=== PATIENT | female | born 1950 | race Caucasian/White ===

== ENCOUNTER 2016-02-19 22:57 | Inpatient (IN) | payer MEDICARE, BC ==
[2016-02-19] MEDS: IPRATROPIUM/ALBUTEROL (0.5MG/3MG) NEB INH ONE (23:23)
--- NOTE | 2016-02-19 23:23 | Emergency Department Record ---
History of Present Illness - General Chief Complaint: Shortness of breath Stated Complaint: LISE Time Seen by Provider: 02/19/16 23:14 Source: Patient, Family Mode of Arrival: Ambulatory - History of Present Illness Initial Comments: The patient was admitted to [facility] last week to have her heart worked up for symptoms of CP, LISE, and neck pain on the side. She states she was given a stress test, and ECHO by cardiology and all her heart tests came back normal. She was not given antibiotics or steroids during that time. Since then she has had continued LISE which she thought she could tolerate until her recheck in her PCP office this Saturday02-20-15. Tonight she became much more SOB while sitting on the couch, so she came in. She is a COPDer who just quit smoking this past fall. She denies CP, neck pain, f,c,n,v,d, calf tenderness. She has never had CVA, DVT, PE, ID. MD Complaint: Shortness of breath Onset/Timin -: Week(s) Severity scale (1-10): 3 Quality: Aching Consistency: Intermittent Improves With: Nothing Worsens With: Coughing Known History Of: COPD Associated Symptoms: Cough Treatments Prior to Arrival: Bronchodilator - Related Data Home Oxygen Therapy: No Home Medications Medication Instructions Recorded Confirmed Last Taken Amlodipine Besylate [Norvasc] 5 mg PO DAILY 11/24/15 02/19/16 02/19/16 Aspirin [Aspirin EC] 81 mg PO DAILY 11/24/15 02/19/16 02/19/16 Previous Rx's Medication Instructions Recorded Albuterol Sulfate [Ventolin Hfa] 1 - 2 puff IH .EVERY 4-6 HOURS PRN 11/25/15 #1 inhaler Allergies Allergy/AdvReac Type Severity Reaction Status Date / Time No Known Drug Allergies Allergy Verified 02/10/16 18:14 Travel Screening - Travel/Exposure Within Last 30 Days Have you traveled within the last 30 days?: No - Travel Symptoms Symptom Screening: None Review of Systems Reviewed: No additional complaints except as noted below Constitutional: Reports: As per HPI. Denies: Chills, Fever, Malaise, Night sweats, Weakness, Weight change Eyes: Reports: As per HPI. Denies: Eye discharge, Eye pain, Photophobia, Vision change ENT: Reports: As per HPI. Denies: Congestion, Dental pain, Ear pain, Epistaxis , Hearing loss, Throat pain Respiratory: Reports: As per HPI. Denies: Cough, Dyspnea, Hemoptysis, Stridor, Wheezes Cardiovascular: Reports: As per HPI. Denies: Arrhythmia, Chest pain, Dyspnea on exertion, Edema, Murmurs, Orthopnea, Palpitations, Paroxysmal nocturnal dyspnea, Rheumatic Fever, Syncope Endocrine: Reports: As per HPI. Denies: Fatigue, Heat or cold intolerance, Polydipsia, Polyuria Gastrointestinal: Reports: As per HPI. Denies: Abdominal pain, Constipation, Diarrhea, Hematemesis, Hematochezia, Melena, Nausea, Vomiting Genitourinary: Reports: As per HPI. Denies: Abnormal menses, Discharge, Dyspareunia, Dysuria, Frequency, Hematuria, Incontinence, Retention, Urgency Musculoskeletal: Reports: As per HPI. Denies: Arthralgia, Back pain, Gout, Joint swelling, Myalgia, Neck pain Skin: Reports: As per HPI. Denies: Bruising, Change in color, Change in hair/ nails, Lesions, Pruritus, Rash Neurological: Reports: As per HPI. Denies: Abnormal gait, Confusion, Headache, Numbness, Paresthesias, Seizure, Tingling, Tremors, Vertigo, Weakness Psychiatric: Reports: As per HPI. Denies: Anxiety, Auditory hallucinations, Depression, Homicidal thoughts, Suicidal thoughts, Visual hallucinations Hematological/Lymphatic: Reports: As per HPI. Denies: Anemia, Blood Clots, Easy bleeding, Easy bruising, Swollen glands Past Medical History - SOCIAL HISTORY Smoking Status: Former smoker - RESPIRATORY Hx Respiratory Disorders: Yes Hx COPD: Yes - CARDIOVASCULAR Hx Cardio Disorders: Yes Hx Hypertension: Yes - NEURO Hx Neuro Disorders: No - GI Hx GI Disorders: No - Hx Genitourinary Disorders: No - ENDOCRINE Hx Endocrine Disorders: No - MUSCULOSKELETAL Hx Musculoskeletal Disorders: No - PSYCH Hx Psych Problems: No - HEMATOLOGY/ONCOLOGY Hx Hematology/Oncology Disorders: No Family Medical History Any Significant Family History?: Yes Hx Cancer: Father, Mother Hx Resp Disorders: Father, Grandparents Physical Exam - General General Appearance: Alert, Oriented x3, Cooperative, Severe distress (breathless , tripod position due to LISE, prolonged expiratory phase, ra biox [id number]) - Head Head exam: Normal inspection - Eye Eye exam: Normal appearance, PERRL Pupils: Normal accommodation - ENT ENT exam: Normal exam, Mucous membranes moist, Normal external ear exam, Normal orophraynx, TM's normal bilaterally Ear exam: Normal external inspection. negative: External canal tenderness Nasal Exam: Normal inspection. negative: Discharge, Sinus tenderness Mouth exam: Normal external inspection, Tongue normal Teeth exam: Normal inspection. negative: Dental caries Throat exam: Normal inspection. negative: Tonsillar erythema, Tonsillar exudate - Neck Neck exam: Normal inspection, Full ROM. negative: Lymphadenopathy, Tenderness - Respiratory Respiratory exam: Accessory muscle use, Decreased breath sounds, Prolonged expiratory, Respiratory distress, Wheezes, Other (RA biox [id number]). negative: Chest wall tenderness - Cardiovascular Cardiovascular Exam: Regular rate, Normal rhythm, Normal heart sounds - GI/Abdominal GI/Abdominal exam: Soft, Normal bowel sounds. negative: Tenderness - Rectal Rectal exam: Deferred - exam: Deferred - Extremities Extremities exam: Normal inspection, Full ROM, Normal capillary refill. negative: Calf tenderness, Pedal edema, Tenderness - Back Back exam: Reports: Normal inspection, Full ROM. Denies: Muscle spasm, Rash noted, Tenderness - Neurological Neurological exam: Alert, Normal gait, Oriented X3, Reflexes normal - Psychiatric Psychiatric exam: Normal affect, Normal mood - Skin Skin exam: Dry, Intact, Normal color, Warm Course Vital Signs 02/19/16 02/19/16 23:03 23:07 Temperature 98.3 F 98.3 F Pulse Rate 90 Pulse Rate [ 96 H Pulse Ox Probe] Respiratory 28 H 18 Rate Blood Pressure 141/93 Blood Pressure 141/93 [Left Arm] Pulse Ox 93 L 93 L - Reevaluation(s) Reevaluation #1: Patient is breathing more comfortably but is not back to her baseline. Lungs are distant and wheezes have dissipated, but she is purse lipped in her breathing. She agrees to admission. She sees Dr. Sen as her PCP. 02/20/16 02:32 02/20/16 02:37 Medical Decision Making - Management Options MDM Management: Additional Work-up Planned (e.g. ADM/Transfer/OP Study) ( Admission for COPD exacerbation; pneumonia LLL) - Data Complexity MDM Data: Labs Ordered and/or Reviewed, X-Ray Ordered and/or Reviewed (CTA chest : Mild atelectasis left lower lobe, Hyperinflation of lung with centrilobular emphysema diffusely and bilaterally. NO PE.), EKG Ordered and/or Reviewed - Lab Data Result diagrams: 02/19/16 23:18 02/19/16 23:18 - EKG Data -: EKG Interpreted by Me EKG: No Acute Changes (low voltage NSR, unchanged from previous of 02-10-16) Disposition Disposition: Admit Clinical Impression: COPD with acute exacerbation Pneumonia Qualifiers: Pneumonia type: due to unspecified organism Laterality: left Lung location: lower lobe of lung Qualified Code(s): J18.1 - Lobar pneumonia, unspecified organism Disposition: Still a Patient at [facility] Decision to Admit: Admit from ER Decision to Admit Date: 02/20/16 Decision to Admit Time: 02:35 Accepting Physician: Dr. Sen's patient Condition: (2) Stable
[2016-02-19] MEDS ORDERED: METHYLPREDNISOLONE PF 125MG/VIAL IVP ONE (23:28)
[2016-02-19] MEDS: ALBUTEROL SULFATE (0.083%) 2.5 MG/3 ML NEB INH ONE (23:36)
[2016-02-19 23:38] LABS: BASO % 0.5 % (0-6); EOS % 8.4 % (0-6); GRAN % 45.4 % (47-80); HEMATOCRIT 41.6 % (35.0-47.0); HEMOGLOBIN 14.3 gm/dl (11.6-16.0); LYMPH % 36.4 % (16-45); MEAN CELL VOLUME 86.7 fl (81-97); MEAN CORPUSCULAR HEMOGLOBIN 29.8 pg (27-33); MEAN CORPUSCULAR HGB CONC 34.4 g/dl (32-36); MEAN PLATELET VOLUME 8.6 fl (7.4-10.4); MONO % 9.3 % (0-9); PLATELET COUNT 277 K/uL (130-400); RED CELL DISTRIBUTION WIDTH 14.4 % (11.5-14.5); WHITE BLOOD COUNT W/O DIFF 7.8 K/uL (4.2-12.2)
[2016-02-19] MEDS ORDERED: ALBUTEROL SULFATE (0.083%) 2.5 MG/3 ML NEB INH ONE (23:49)
[2016-02-19 23:56] LABS: ANION GAP 9.2 (7-16); BLOOD UREA NITROGEN 14 mg/dL (7-17); CARBON DIOXIDE 25.8 mmol/L (22-30); CREATININE 0.8 mg/dL (0.52-1.04); EST GLOMERULAR FILTRATION RATE > 60 ml/min; GLUCOSE,RANDOM 95 mg/dL (70-110)
[2016-02-20 00:07] LABS: TROPONIN I < 0.012 ng/mL (0.00-0.034)
[2016-02-20] MEDS: IPRATROPIUM/ALBUTEROL (0.5MG/3MG) NEB INH ONE (01:16)
[2016-02-20] MEDS ORDERED: ALBUTEROL SULFATE (0.083%) 2.5 MG/3 ML NEB INH ONE (02:30)
[2016-02-20] MEDS ORDERED: AZITHROMYCIN 500 MG TABLET PO ONE (02:31)
[2016-02-20] MEDS ORDERED: CEFTRIAXONE SODIUM 2 GM in 0.9 % SODIUM CHLORIDE 100ML 100 ML IVPB ONE (02:31)
[2016-02-20] MEDS: ALBUTEROL SULFATE (0.083%) 2.5 MG/3 ML NEB INH ONE (02:36)
[2016-02-20] MEDS ORDERED: CEFTRIAXONE SODIUM 2 GM in 0.9 % SODIUM CHLORIDE 100ML 100 ML IVPB SCH (04:21)
[2016-02-20] MEDS: 0.9 % SODIUM CHLORIDE 1000ML 1,000 ML IV PRN ×2 (04:33→12:46)
[2016-02-20] MEDS: ACETAMINOPHEN 500 MG TABLET PO PRN ×2 (04:34→18:50)
[2016-02-20] MEDS ORDERED: ALBUTEROL SULFATE (0.083%) 2.5 MG/3 ML NEB INH SCH (06:00)
[2016-02-20] MEDS ORDERED: IPRATROPIUM/ALBUTEROL (0.5MG/3MG) NEB INH SCH (06:00)
[2016-02-20] MEDS ORDERED: ALBUTEROL SULFATE (0.083%) 2.5 MG/3 ML NEB INH PRN (07:54)
[2016-02-20] MEDS: AMLODIPINE BESYLATE 5MG TAB PO SCH (09:21)
[2016-02-20] MEDS: ASPIRIN 81 MG TABEC PO SCH (09:21)
[2016-02-20] MEDS: IPRATROPIUM/ALBUTEROL (0.5MG/3MG) NEB INH SCH ×4 (09:54→21:35)
[2016-02-20] MEDS ORDERED: METHYLPREDNISOLONE PF 125MG/VIAL IVP SCH (10:00)
[2016-02-20] MEDS ORDERED: 0.9 % SODIUM CHLORIDE 1000ML 1,000 ML IV ONE (12:49)
[2016-02-20] MEDS: 0.9 % SODIUM CHLORIDE 1000ML 1,000 ML IV ONE ×2 (13:13→19:30)
[2016-02-20] MEDS: ENOXAPARIN 40 MG/0.4 ML SYR SQ SCH (13:17)
[2016-02-20] MEDS: CEFTRIAXONE SODIUM 1 GM in 0.9 % SODIUM CHLORIDE 100ML 100 ML IVPB SCH (13:18)
--- NOTE | 2016-02-20 14:35 | History and Physical Report ---
CHIEF COMPLAINT: Dyspnea, cough, wheezing. HISTORY OF PRESENT ILLNESS: This 65-year-old female presented to the emergency department short of breath and wheezing. She came into the emergency department and was seen by Dr. Guillen. She was admitted to the hospital for pneumonia. She was recently worked up at [facility] approximately [id number]-half weeks ago for chest pain which was negative for a cardiac problem. She continued to get worse with her breathing on the left two or three days with shortness of breath and coughing. She stopped smoking in October of 2015. She has a long history of smoking and has chronic obstructive pulmonary disease. She required four breathing treatments, possibly five breathing treatments, in the emergency department to settle her down. She was admitted to the hospital for chronic obstructive pulmonary disease exacerbation and possible pneumonia. However, the chest CT was negative for any acute findings. She might have had some atelectasis in the lower lungs, but it was not significant. No signs of pulmonary embolism. Her D-dimer was slightly elevated. PAST MEDICAL HISTORY: Chronic obstructive pulmonary disease, hypertension. PAST SURGICAL HISTORY: Hysterectomy, cholecystectomy, appendectomy, tubal ligation. MEDICATIONS ON ADMISSION: Aspirin 81 mg q. daily, amlodipine 5.0 mg q. daily, albuterol or Ventolin inhaler two puffs every four hours p.r.n. ALLERGIES: No known drug allergies. FAMILY/PSYCHOSOCIAL HISTORY: Her smoking history was heavy. She smoked one pack per day for 40 years. She quit smoking in October of 2015. No alcohol or drug use. Her father and mother had cancer. Her father had chronic obstructive pulmonary disease. Her grandparents had chronic obstructive pulmonary disease. REVIEW OF SYSTEMS: HEENT: She has a hoarse voice and slight congestion. No ear pain, eye discomfort, headache, or dizziness. Cardiovascular: She had a chest pain work up approximately one week ago at [facility]. She said what she felt then was a funny feeling in her chest. She did not really have chest pain but was worked up for atypical chest pain and it was a negative work up per the patient and Dr. Guillen. Respiratory: She was short of breath and wheezing for which she required five breathing treatments in the emergency department. She has a long smoking history and a history of chronic obstructive pulmonary disease. She is short of breath with exertion. Gastrointestinal: No nausea, vomiting, diarrhea, black stools, or bloody stools. Genitourinary: No dysuria, hematuria, frequency, or burning on urination. Musculoskeletal: She does have arthritis in her joints but is ambulating without difficulty. Neurologic: No cerebrovascular accident, paralysis, or paraesthesias. Gynecologic: No lumps in her breasts or abnormal vaginal bleeding. Endocrine: No diabetes or thyroid disease. Integument: No rash, ulcers, changing moles, or yellow skin. PHYSICAL EXAMINATION: General: Height is 5 feet, 4 inches. Weight is 161 pounds. Vital Signs: Pulse is 100, blood pressure is 132/87 at 4:00 in the morning, respiratory rate is 20, pulse oximetry is 96% on two liters. HEENT: Pupils are equal, round, and reactive to light and accommodation. Extraocular muscles are intact. The throat is clear. The nose is clear. The tympanic membranes are venegas. She has a hoarse voice. Neck: The neck is supple. No jugular venous distension. No hepatojugular reflex. No carotid bruit. The thyroid is smooth. Cardiovascular: Regular rate and rhythm without murmurs, clicks, rubs, or gallops. Respiratory: She has wheezing bilaterally and coughing with a spasmodic cough. Abdomen: Soft and nontender. No hepatosplenomegaly. No masses. No tenderness. Bowel sounds are active. No bruit. Extremities: No pitting edema. No cyanosis. No clubbing. Full range of motion. Peripheral pulses are good. Breasts, Gynecological, and Rectal Examinations: Deferred. Neurological Examination: Cranial nerves II through XII are intact. No gross defect. Sensation is normal. Strength is normal. Deep tendon reflexes are equal bilaterally. Babinski is negative. Mental Status: Alert and oriented times three. IMPRESSIONS: 1. Acute bronchitis. 2. Acute exacerbation of chronic obstructive pulmonary disease. 3. Status post hypertension. PLAN: Lovenox 40 mg subcutaneous. Continue intravenous antibiotics. Will change Rocephin 1.0 gm every 12 hours to Solu Medrol 60 mg q. eight hours. Decrease the intravenous fluids to 50 mL per hour. Rodney A Francy, D.O. Date Time JOB NUMBER: [id number] MTDD
[2016-02-20] MEDS: METHYLPREDNISOLONE PF 125MG/VIAL IVP SCH ×2 (16:16→21:28)
[2016-02-21] MEDS: CEFTRIAXONE SODIUM 1 GM in 0.9 % SODIUM CHLORIDE 100ML 100 ML IVPB SCH (00:11)
[2016-02-21] MEDS: ACETAMINOPHEN 500 MG TABLET PO PRN (00:16)
[2016-02-21] MEDS: METHYLPREDNISOLONE PF 125MG/VIAL IVP SCH (05:13)
[2016-02-21] MEDS: IPRATROPIUM/ALBUTEROL (0.5MG/3MG) NEB INH SCH ×6 (05:39→21:33)
[2016-02-21] MEDS ORDERED: CEFTRIAXONE SODIUM 2 GM in 0.9 % SODIUM CHLORIDE 100ML 100 ML IVPB SCH (08:00)
--- NOTE | 2016-02-21 08:43 | CT ANGIOGRAM REPORT ---
EXAM: CT ANGIOGRAPHY OF THE THORAX HISTORY: SHORTNESS OF BREATH, DRY COUGH, ELEVATED D-DIMER. TECHNIQUE: CT angiography of the thorax was performed. 85 ml of Omnipaque 350 contrast were used for this examination. Coronal and sagittal post processed MIP images were performed on an independent workstation as part of this examination. Comparison; Chest x-ray 02/10/16. FINDINGS: There are no pulmonary emboli identified. No aortic aneurysm or aortic dissection. There are mild atherosclerotic changes in the thoracic aorta. There is no pleural or pericardial effusion. No mediastinal mass or adenopathy. Minor atelectasis or infiltrate is seen in the lower left lung. There are mild to moderate emphysematous changes bilaterally. No lung mass or lung nodule identified. No large area of lung consolidation. Limited upper abdominal images demonstrate bilateral adrenal enlargement possibly due to hyperplasia or adenoma. The upper abdomen is otherwise unremarkable. IMPRESSION: 1. NO PULMONARY EMBOLI. NO AORTIC ANEURYSM, AORTIC DISSECTION, OR ACUTE VASCULAR PROCESS. 2. SMALL AREA OF ATELECTASIS OR INFILTRATE AT THE LEFT LUNG BASE OF UNCERTAIN SIGNIFICANCE. 3. EMPHYSEMATOUS CHANGES. 4. SEE ABOVE FOR FULL DISCUSSION. 5. MILD BILATERAL ADRENAL ENLARGEMENT POSSIBLY DUE TO HYPERPLASIA OR BILATERAL ADENOMAS. JOB NUMBER: [id number] [facility]
[2016-02-21] MEDS: ASPIRIN 81 MG TABEC PO SCH (09:52)
[2016-02-21] MEDS: AMLODIPINE BESYLATE 5MG TAB PO SCH (09:52)
[2016-02-21] MEDS: AZITHROMYCIN 500 MG TABLET PO SCH (09:52)
[2016-02-21] MEDS: ENOXAPARIN 40 MG/0.4 ML SYR SQ SCH (09:52)
[2016-02-21] MEDS: PREDNISONE 20 MG TAB PO SCH (18:03)
[2016-02-22] MEDS: IPRATROPIUM/ALBUTEROL (0.5MG/3MG) NEB INH SCH ×2 (05:09→05:46)
--- NOTE | 2016-02-22 07:49 | Discharge Note ---
Discharge Note - Date Date of Discharge Note: 02/22/16 Disposition: Home, Self-Care Condition: (2) Stable Additional Instructions: follow up with Dr. Sen on saturday Prescriptions: Prednisone [Prednisone 10Mg] 10 mg PO ASDIR #30 tab Azithromycin [Zithromax] 500 mg PO DAILY #7 tab Forms: Patient Portal Access
--- NOTE | 2016-02-22 08:03 | Discharge Note ---
Discharge Note - Date Date of Discharge Note: 02/22/16 Disposition: Home, Self-Care Condition: (2) Stable Additional Instructions: follow up with Dr. Sen on saturday Prescriptions: Prednisone [Prednisone 10Mg] 10 mg PO ASDIR #30 tab Beclomethasone Dipropionate [Qvar] 1 inh IH BID #1 aer.w.adap Azithromycin [Zithromax] 500 mg PO DAILY #7 tab Referrals: Rodney Sen D.O. [Primary Care Provider] - Forms: Patient Portal Access
[2016-02-22] MEDS ORDERED: PREDNISONE 20 MG TAB PO ONE (08:08)
[2016-02-22] MEDS: PREDNISONE 20 MG TAB PO SCH (08:14)
[2016-02-22] MEDS: ASPIRIN 81 MG TABEC PO SCH (09:06)
[2016-02-22] MEDS: AMLODIPINE BESYLATE 5MG TAB PO SCH (09:06)
[2016-02-22] MEDS: AZITHROMYCIN 500 MG TABLET PO SCH (09:06)
[2016-02-22] MEDS: ENOXAPARIN 40 MG/0.4 ML SYR SQ SCH (09:06)
--- NOTE | 2016-02-22 16:29 | Discharge Summary ---
DATE OF DISCHARGE: 02/22/2016. DISCHARGE DIAGNOSES: 1. Acute bronchitis. 2. Exacerbation of chronic obstructive pulmonary disease. 3. Status post hypertension. 4. Bilateral enlarged adrenal glands seen on CT scan of the chest, mildly enlarged. 5. Possible pneumonia. ATTENDING PHYSICIAN: Rodney Sen D.O. REASON FOR HOSPITALIZATION: Dyspnea, cough, and wheezing. HISTORY OF THE PRESENT ILLNESS: This 65-year-old female presented to the emergency department short of breath and wheezing. She came to the emergency department and was seen by Dr. Guillen. She was admitted to the hospital for pneumonia. She was recently worked up at [facility] for a cardiac work up about mmn-qcq-[id number]-half weeks ago. This was negative for cardiac problems. She progressively got worse with her breathing. Her coughing got worse. She came in and was admitted to the hospital by Dr. Guillen for possible pneumonia. However, the CT scan did not show any signs of pneumonia or pulmonary embolus. She had a slightly elevated D-dimer. A CT angiogram was ordered which was negative for pulmonary embolus. She stopped smoking in October of 2015. She has a long history of smoking. SIGNIFICANT FINDINGS: LABORATORY DATA: White blood cell count was 7,800, hemoglobin was 14.3. Lymphs were 36, segs were 45, monos were 9.0, eosinophils were 8.0. Potassium was 3.8. BUN was 14 and creatinine was 0.8. D-dimer was slightly elevated at 0.61. DIAGNOSTIC DATA: CT angiogram showed no pulmonary embolism, aortic aneurysm, aortic dissection, or acute vascular process. Small area of atelectasis or infiltrate in the left lung base of uncertain significance. Emphysematous changes. See above for the full discussion. Mild bilateral adrenal enlargement possibly due to hyperplasia or bilateral adenomas. THERAPY PROVIDED: The patient was started on intravenous Rocephin 1.0 gm q. 12 hours, azithromycin 500 mg once a day, DuoNeb treatments q. four hours while awake. Solu Medrol 125 mg was given in the emergency department with 60 mg q. eight hours. She was switched over to oral prednisone. She is breathing much better on the day of discharge. She is ambulating around the room without difficulties. HOSPITAL COURSE: The patient gradually got better. CONDITION AT DISCHARGE: Much improved. DISCHARGE INSTRUCTIONS: Follow up with Dr. Sen on February 26Saturday, in the office. Azithromycin 500 mg q. daily for seven days. Prednisone will be tapered off at 40 mg a day. QVAR one puff b.i.d. Albuterol inhaler two puffs q.i.d. Aspirin 81 mg q. daily, amlodipine 5.0 mg q. daily. Rodney Sen D.O. Date Time JOB NUMBER: [id number] MTDD
== END 2016-02-22 09:40 | disposition home or self-care (01) | DRG 190 ==
LOC: ER 22:57 → MEDSURG 02-20 04:20
PROVIDERS: ADMIT Emergency Medicine; ATTEND Emergency Medicine
DX: J44.0 Chronic obstructive pulmonary disease with (acute) lower respiratory infection (principal); J18.9 Pneumonia, unspecified organism; J20.9 Acute bronchitis, unspecified; I10 Essential (primary) hypertension; Z79.82 Long term (current) use of aspirin; Z87.891 Personal history of nicotine dependence; R59.0 Localized enlarged lymph nodes
CPT/HCPCS: 71275; 80048; 84484; 85025; 85379; 93005; 93010; 94620; 94640; 94760; 94761; 96374; 99285; J1650; J2930; J7512; J7613

== ENCOUNTER 2016-03-06 19:30 | Observation (INO) | payer MEDICARE, BC ==
[2016-03-06] MEDS ORDERED: IPRATROPIUM/ALBUTEROL (0.5MG/3MG) NEB INH ONE (19:33)
[2016-03-06] MEDS ORDERED: METHYLPREDNISOLONE PF 125MG/VIAL IVP ONE (19:33)
--- NOTE | 2016-03-06 19:41 | Emergency Department Record ---
History of Present Illness - General Chief Complaint: Shortness of breath Stated Complaint: LISE/DIZZY Time Seen by Provider: 03/06/16 19:32 Source: Patient Mode of Arrival: Ambulatory Limitations: No limitations - History of Present Illness Initial Comments: 65 yo female presents to ED for evaluation of progressively worsening shortness of breath symptoms. Patient reports recent hospitalization and treatment for "COPD and Bronchitis", finished her oral steroid yesterday. Patient reports that her symptoms have been worsening over the past several days. Patient denies fevers, chills, or productive cough symptoms. MD Complaint: Shortness of breath Onset/Timin -: Days(s) Severity: Severe Consistency: Constant Improves With: Nothing Worsens With: Exertion Known History Of: COPD Context: Recent illness, Recent URI Associated Symptoms: Denies other symptoms - Related Data Home Oxygen Therapy: No Home Medications Medication Instructions Recorded Confirmed Last Taken Amlodipine Besylate [Norvasc] 5 mg PO DAILY 11/24/15 03/06/16 02/19/16 Aspirin [Aspirin EC] 81 mg PO DAILY 11/24/15 03/06/16 02/19/16 Previous Rx's Medication Instructions Recorded Albuterol Sulfate [Ventolin Hfa] 1 - 2 puff IH .EVERY 4-6 HOURS PRN 11/25/15 #1 inhaler Acetaminophen [Tylenol 500Mg Tab] 500 mg PO Q6H PRN #0 tablet 02/22/16 Allergies Allergy/AdvReac Type Severity Reaction Status Date / Time No Known Drug Allergies Allergy Verified 02/10/16 18:14 Review of Systems Constitutional: Denies: Chills, Fever, Malaise, Night sweats Eyes: Denies: Eye discharge, Eye pain ENT: Denies: Congestion, Ear pain, Epistaxis Respiratory: Reports: Cough, Dyspnea. Denies: Hemoptysis, Stridor, Wheezes Cardiovascular: Denies: Chest pain, Dyspnea on exertion Endocrine: Denies: Fatigue, Heat or cold intolerance Gastrointestinal: Denies: Abdominal pain, Nausea, Vomiting Genitourinary: Denies: Dysuria, Frequency, Hematuria, Incontinence Musculoskeletal: Denies: Arthralgia, Back pain, Gout, Joint swelling Skin: Denies: Bruising, Change in color Neurological: Denies: Abnormal gait, Confusion, Headache, Seizure Psychiatric: Denies: Anxiety Hematological/Lymphatic: Denies: Anemia, Blood Clots Past Medical History - SOCIAL HISTORY Smoking Status: Former smoker Drug Use: None - RESPIRATORY Hx Respiratory Disorders: Yes Hx COPD: Yes - CARDIOVASCULAR Hx Cardio Disorders: Yes Hx Hypertension: Yes - NEURO Hx Neuro Disorders: No - GI Hx GI Disorders: No - Hx Genitourinary Disorders: No - ENDOCRINE Hx Endocrine Disorders: No - MUSCULOSKELETAL Hx Musculoskeletal Disorders: No - PSYCH Hx Psych Problems: No - HEMATOLOGY/ONCOLOGY Hx Hematology/Oncology Disorders: No Family Medical History Hx Cancer: Father, Mother *Cancer Comment: mother- lung ca, father-colon ca Hx Resp Disorders: Father, Grandparents Physical Exam - General General Appearance: Alert, Oriented x3, Cooperative, Moderate distress (pursed breathing on examination, sitting upright to catch her breath) Limitations: Physical limitation - Head Head exam: Atraumatic, Normocephalic, Normal inspection Head exam detail: negative: Abrasion, Contusion, Palumbo's sign, General tenderness, Hematoma, Laceration - Eye Eye exam: Normal appearance. negative: Conjunctival injection, Periorbital swelling, Periorbital tenderness, Scleral icterus - ENT Ear exam: negative: Auricular hematoma, Auricular trauma Nasal Exam: negative: Active bleeding, Discharge, Dried blood, Foreign body Mouth exam: negative: Drooling, Laceration, Muffled voice, Tongue elevation - Neck Neck exam: Normal inspection. negative: Meningismus, Tenderness - Respiratory Respiratory exam: Decreased breath sounds, Respiratory distress. negative: Rhonchi, Stridor, Wheezes - Cardiovascular Cardiovascular Exam: Regular rate, Normal rhythm, Normal heart sounds - GI/Abdominal GI/Abdominal exam: Soft. negative: Rebound, Rigid, Tenderness - Rectal Rectal exam: Deferred - exam: Deferred - Extremities Extremities exam: Normal inspection. negative: Calf tenderness, Pedal edema, Tenderness - Back Back exam: Denies: CVA tenderness (R), CVA tenderness (L) - Neurological Neurological exam: Alert, Normal gait, Oriented X3 - Psychiatric Psychiatric exam: Normal affect, Normal mood - Skin Skin exam: Normal color. negative: Abrasion Type of lesion: negative: abrasion Course - Reevaluation(s) Reevaluation #1: 03/06/16 19:41 CTA reviewed 02/20/16: No PE or dissection, findings c/w atelectasis or infiltrate left base. Reevaluation #2: 03/06/16 19:54 EKG: NSR 84 indeterminate axis Low voltage No acute ST-T wave changes. No chagne from previous 02/10/16. 03/06/16 19:55 Reevaluation #3: 03/06/16 20:33 Labs reviewed and are grossly unremarkable for an acute process. CXR reviewed, negative for an acute process except for COPD. Patient reassessed, remains moderately dyspnic on re-examination. Continuous albuterol and ABG ordered for further evaluation. Will place admission orders following clinical improvement and review of ABG. Reevaluation #4: 03/06/16 21:17 ABG reviewed, PCO2 42, PO2 60, HCO3 28.2. Will admit for further evaluation. Medical Decision Making - Lab Data Result diagrams: 03/06/16 19:44 03/06/16 19:44 Critical Care Time Critical Care Time: Yes Total Critical Care Time: 45 Critical Care Time: Treatment and diagnosis of COPD exacerbation including IV solumedrol, duoneb, continuous albuterol, and ABG interpretation for respiratory failure. Disposition Disposition: Admit Clinical Impression: COPD with acute exacerbation, Hypoxia Decision to Admit: Admit from ER Decision to Admit Date: 03/06/16 Decision to Admit Time: 21:18 Forms: Patient Portal Access Time of Disposition: :18
[2016-03-06 19:53] LABS: HEMATOCRIT 44.9 % (35.0-47.0); HEMOGLOBIN 14.9 gm/dl (11.6-16.0); MEAN CELL VOLUME 91.3 fl (81-97); MEAN CORPUSCULAR HEMOGLOBIN 30.3 pg (27-33); MEAN CORPUSCULAR HGB CONC 33.2 g/dl (32-36); MEAN PLATELET VOLUME 8.4 fl (7.4-10.4); PLATELET COUNT 283 K/uL (130-400); RED BLOOD COUNT 4.92 M/uL (3.80-5.40); RED CELL DISTRIBUTION WIDTH 15.1 % (11.5-14.5); WHITE BLOOD COUNT W/O DIFF 10.5 K/uL (4.2-12.2)
[2016-03-06 20:04] LABS: ALB/GLOB RATIO 1.7 (1.1-1.8); ALBUMIN 4.3 gm/dL (3.5-5.0); ALKALINE PHOSPHATASE 64 U/L (38-126); ALT/SGPT 31 U/L (9-52); AST/SGOT 20 U/L (14-36); BLOOD UREA NITROGEN 18 mg/dL (7-17); CREATININE 0.9 mg/dL (0.52-1.04); EST GLOMERULAR FILTRATION RATE > 60 ml/min; GLUCOSE,RANDOM 84 mg/dL (70-110); TOTAL PROTEIN 6.8 gm/dL (6.3-8.2)
[2016-03-06 20:16] LABS: CKMB 1.3 ug/L (0-6); TROPONIN I < 0.012 ng/mL (0.00-0.034)
[2016-03-06] MEDS ORDERED: ALBUTEROL SULFATE 0.5% 5 MG/ML BTL 20ML INH SCH (20:45)
[2016-03-06 21:07] LABS: ARTERIAL BLD GAS O2 SATURATION 92.8 % (95-98); ARTERIAL BLOOD GAS HCO3 28.2 mmol/L (18-23); ARTERIAL BLOOD GAS PCO2 42.1 mmHg (35-48); ARTERIAL BLOOD GAS pH 7.44 (7.35-7.45); CARBOXYHEMOGLOBIN 1.1 % (0-1.5); METHEMOGLOBIN 0.5 % (0.0-1.5); O2 HEMOGLOBIN 91.3 % vol (94-99); TOTAL HEMOGLOBIN 14.3 g/dl (11.6-16)
[2016-03-06 21:09] LABS: ALLEN TEST PASS
[2016-03-06] MEDS ORDERED: IPRATROPIUM/ALBUTEROL (0.5MG/3MG) NEB INH PRN (21:18)
[2016-03-06] MEDS ORDERED: ALBUTEROL SULFATE (0.083%) 2.5 MG/3 ML NEB INH PRN (21:18)
[2016-03-06] MEDS ORDERED: 0.9 % SODIUM CHLORIDE 1000ML 1,000 ML IV PRN (21:18)
--- NOTE | 2016-03-07 07:29 | RADIOLOGY REPORT ---
EXAM: CHEST, TWO VIEWS HISTORY: COUGH. TECHNIQUE: Frontal and lateral views of the chest were obtained. Comparison: 02/10/16 chest. FINDINGS: The heart size is normal. Osteopenia. Underlying hyperinflation/ COPD. The lungs are clear. No pneumothorax. IMPRESSION: COPD. THE LUNGS ARE CLEAR. JOB NUMBER: [id number] MTDD
[2016-03-07] MEDS ORDERED: AMOXICILLIN 500 MG TABLET PO ONE (08:52)
--- NOTE | 2016-03-07 08:57 | Discharge Note ---
Discharge Note - Date Date of Discharge Note: 03/07/16 Disposition: Home, Self-Care Condition: (1) Good Additional Instructions: follow up with Dr. Sen on saturday as scheduled increase q ceasar inhaler to 2 puffs BID start neb treatments of albuterol neb QID amoxil 500 mg TID fpr laryngitis Prescriptions: Albuterol Sulfate 0.083% [Neb] 2.5 mg INH QID PRN #120 nebulization solution PRN Reason: Difficulty In Breathing Amoxicillin [Amoxil] 500 mg PO TID #30 tab Forms: Patient Portal Access
[2016-03-07] MEDS ORDERED: METHYLPREDNISOLONE PF 125MG/VIAL IVP SCH (10:00)
--- NOTE | 2016-03-07 10:53 | History and Physical Report ---
STATUS: This is an observation patient. CHIEF COMPLAINT: Dyspnea. HISTORY OF PRESENT ILLNESS: This 65-year-old female states that she developed a hoarse voice approximately one or two days ago. She just finished her steroid taper following her last hospitalization two weeks ago. She took her last prednisone yesterday. She became short of breath about 6:00 p.m. She came into the emergency department requiring a nebulization treatment of albuterol for one hour. She was then feel much better. She was admitted to the hospital. She had a reasonable blood gas and did not qualify for oxygen therapy. She took her oxygen off during the night and has not used her oxygen at all during the night. She slept well, according to nursing. She still has a hoarse voice. She ate breakfast and is feeling much better. She is ambulating around the room without difficulties. DIAGNOSTIC DATA: She had a chest x-ray in the emergency department which was negative for infiltrate. It showed only chronic obstructive pulmonary disease. LABORATORY DATA: She had a blood gas done which revealed a pH of 7.44, P02 of 60, PC02 of 42 on room air. She had a complete blood count which showed a white count of 10,500. Hemoglobin was 14.9. Segs were 58. Bands were 0. Lymphs were 22. Electrolytes showed a potassium of 4.5, BUN of 18, and a creatinine 0.9. Calcium was 11.1. CKMB was negative at 1.3. Troponin was negative at less than 0.012. PAST MEDICAL HISTORY: Chronic obstructive pulmonary disease and hypertension. PAST SURGICAL HISTORY: Hysterectomy, cholecystectomy, appendectomy, tubal ligation. MEDICATIONS ON ADMISSION: Amlodipine 5.0 mg q. daily, albuterol inhaler two puffs q. four hours p.r.n., Tylenol p.r.n., aspirin 81 mg q. daily, QVAR 40 mcg one puff b.i.d. ALLERGIES: No known allergies. FAMILY/PSYCHOSOCIAL HISTORY: Her smoking history was heavy. She smoked one pack per day for four years; she quit smoking in October of 2015. No alcohol or drug use. Her father and mother had cancer. Her father had chronic obstructive disease. Her grandparents had chronic obstructive pulmonary disease. REVIEW OF SYSTEMS: HEENT: She has a slightly hoarse voice and some congestion. No sore throat. No discomfort. Cardiovascular: She had a chest pain work up at [facility] approximately one month ago which was negative. Respiratory: See Chief Complaint. She does have chronic obstructive pulmonary disease. She has had intermittent episodes of difficulty breathing. Gastrointestinal: No nausea, vomiting, diarrhea, black stools, or bloody stools. Genitourinary: No dysuria, hematuria, frequency, or burning on urination. Musculoskeletal: No joint or bone abnormalities. Neurologic: No cerebrovascular accident, paralysis, or paraesthesias. Gynecologic: No abnormal lumps in her breasts or abnormal bleeding. Endocrine: No diabetes or thyroid disease. Integument: No rash, ulcers, changing moles, or yellow skin. PHYSICAL EXAMINATION: General: Height is 5 feet, 4 inches. Weight is 160 pounds. Vital Signs: Temperature is 97.7, pulse is 83, blood pressure is 117/69, respiratory rate is 18, pulse oximetry is 95% on room air. HEENT: Pupils are equal, round, and reactive to light and accommodation. Extraocular muscles are intact. The throat is clear. The nose is clear. The tympanic membranes are venegas. Neck: The neck is supple. No jugular venous distension. Her voice is slightly hoarse. No hepatojugular reflex. No carotid bruit. The thyroid is smooth. Cardiovascular: Regular rate and rhythm without murmurs, clicks, rubs, or gallops. Respiratory: Clear to auscultation. Breath sounds are equal bilaterally. Abdomen: Soft and nontender. No hepatosplenomegaly. No masses. No tenderness. Bowel sounds are active. No bruit. Extremities: No pitting edema. No cyanosis. No clubbing. Full range of motion. Peripheral pulses are good. Breasts, Gynecological, and Rectal Examinations: Deferred. Neurological Examination: Cranial nerves II through XII are intact. No gross defect. Sensation is normal. Strength is normal. Deep tendon reflexes are equal bilaterally. Babinski is negative. Mental Status: Alert and oriented times three. IMPRESSIONS: 1. Acute laryngitis. 2. Acute exacerbation of chronic obstructive pulmonary disease. 3. A hoarse voice. 4. Status post hypertension. PLAN: At this point she looks good. We will switch her to a regular observation patient and send her home. Will increase her QVAR to two puffs twice a day and start her on amoxicillin 500 mg t.i.d. Rodney Sen D.O. Date Time JOB NUMBER: [id number] [facility]
--- NOTE | 2016-03-07 16:35 | Discharge Summary ---
DATE OF DISCHARGE: 03/07/16 DISCHARGE DIAGNOSES: 1. ACUTE EXACERBATION OF COPD. 2. ACUTE LARYNGITIS. 3. STATUS POST HYPERTENSION. 4. STATUS POST HOARSE VOICE. 5. STATUS POST COPD. ATTENDING PHYSICIAN: Rodney Sen D.O. REASON FOR HOSPITALIZATION: DYSPNEA: She came in at 6 p.m. last night short of breath. She was seen by Dr. Nayak and given a breathing treatment of Albuterol for one hour, which improved her. She slept through the night and did not require oxygen, ate breakfast, was moving around the room without difficulty. She does have a hoarse voice, which she says she has had on and off for three days; we will have to check this out as an outpatient with ENT since this has been going on for at least two to four weeks. Nursing states she slept all night. SIGNIFICANT FINDINGS: Chest x-ray is negative for infiltrate. It did show COPD. Labs are unremarkable. THERAPY PROVIDED: She had a one hour breathing treatment in the Emergency Department, IV fluids. HOSPITAL COURSE: Much improved. CONDITION AT DISCHARGE: Much improved. DISCHARGE INSTRUCTIONS: Follow-up with Dr. Sen on Saturday as scheduled. We will start Amoxicillin three times a day for laryngitis. QVAR, we will increase it to two puffs b.i.d. It is 40 micrograms per container or puff. We will start her on Albuterol nebulization treatments four times a day and drink plenty of fluid. Rodney Sen D.O. Date & Time JOB NUMBER: [id number] [facility]
== END 2016-03-07 10:15 | disposition home or self-care (01) ==
LOC: ER 19:30 → INTOOBSV 21:57 → MEDSURG 21:57
PROVIDERS: ADMIT Emergency Medicine; ATTEND Emergency Medicine
DX: J04.0 Acute laryngitis (principal); J44.1 Chronic obstructive pulmonary disease with (acute) exacerbation; I10 Essential (primary) hypertension; R49.8 Other voice and resonance disorders
CPT/HCPCS: 99285 ×2; 94760; 96374; 82375; 82553; 84484; 80053; 82803; 85027; 71020; 94640 ×3; 36600; 94761; 93005; 93010; G0378 ×2; 99223; J2930

== ENCOUNTER 2016-05-16 22:51 | Observation (INO) | payer MEDICARE, BC ==
[2016-05-16] MEDS ORDERED: IPRATROPIUM/ALBUTEROL (0.5MG/3MG) NEB INH ONE (22:57)
[2016-05-16] MEDS ORDERED: ALBUTEROL SULFATE (0.083%) 2.5 MG/3 ML NEB INH ONE (23:06)
[2016-05-16] MEDS ORDERED: METHYLPREDNISOLONE PF 125MG/VIAL IVP ONE (23:07)
[2016-05-16 23:17] LABS: BASO % 0.7 % (0-6); EOS % 9.6 % (0-6); GRAN % 42.6 % (47-80); HEMATOCRIT 46.2 % (35.0-47.0); HEMOGLOBIN 15.6 gm/dl (11.6-16.0); LYMPH % 35.5 % (16-45); MEAN CELL VOLUME 88.7 fl (81-97); MEAN CORPUSCULAR HEMOGLOBIN 29.9 pg (27-33); MEAN CORPUSCULAR HGB CONC 33.8 g/dl (32-36); MEAN PLATELET VOLUME 8.5 fl (7.4-10.4); MONO % 11.6 % (0-9); PLATELET COUNT 295 K/uL (130-400); RED BLOOD COUNT 5.21 M/uL (3.80-5.40); RED CELL DISTRIBUTION WIDTH 13.7 % (11.5-14.5); WHITE BLOOD COUNT W/O DIFF 8.3 K/uL (4.2-12.2)
[2016-05-16 23:28] LABS: ANION GAP 7.9 (7-16); BLOOD UREA NITROGEN 15 mg/dL (7-17); CARBON DIOXIDE 30.1 mmol/L (22-30); CREATININE 0.7 mg/dL (0.52-1.04); EST GLOMERULAR FILTRATION RATE > 60 ml/min; GLUCOSE,RANDOM 100 mg/dL (70-110)
[2016-05-16 23:33] LABS: INFLUENZA A NEGATIVE (NEGATIVE); INFLUENZA B NEGATIVE (NEGATIVE)
[2016-05-17] MEDS ORDERED: ALBUTEROL SULFATE (0.083%) 2.5 MG/3 ML NEB INH ONE (00:13)
[2016-05-17] MEDS ORDERED: PROMETHAZINE W/CODEINE 10ML UD PO ONE (00:13)
--- NOTE | 2016-05-17 01:35 | Emergency Department Record ---
History of Present Illness - General Chief Complaint: Shortness of breath Stated Complaint: LISE Time Seen by Provider: 05/16/16 23:01 Source: Patient Mode of Arrival: Wheelchair Limitations: No limitations - History of Present Illness Initial Comments: pt has been increasingly sob since yesterday w severe coughing spells. prod clear cough Onset/Timin -: Days(s) Improves With: Nothing Known History Of: COPD Context: Recent URI Associated Symptoms: Cough, Sputum production Treatments Prior to Arrival: Bronchodilator - Related Data Home Oxygen Therapy: No Home Medications Medication Instructions Recorded Confirmed Last Taken Amlodipine Besylate [Norvasc] 5 mg PO DAILY 11/24/15 05/16/16 05/16/16 Aspirin [Aspirin EC] 81 mg PO DAILY 11/24/15 05/16/16 05/16/16 Beclomethasone Dipropionate [Qvar 2 puff IH BID 05/17/16 05/17/16 05/16/16 09:00 80 Mcg Inhaler] 2 Previous Rx's Medication Instructions Recorded Albuterol Sulfate [Ventolin Hfa] 1 - 2 puff IH .EVERY 4-6 HOURS PRN 11/25/15 #1 inhaler Albuterol Sulfate 0.083% [Neb] 2.5 mg INH QID PRN #120 03/07/16 nebulization solution Allergies Allergy/AdvReac Type Severity Reaction Status Date / Time No Known Drug Allergies Allergy Verified 02/10/16 18:14 Travel Screening - Travel/Exposure Within Last 30 Days Have you traveled within the last 30 days?: No - Travel Symptoms Symptom Screening: None Review of Systems Reviewed: No additional complaints except as noted below Constitutional: Reports: As per HPI. Denies: Chills, Fever, Malaise, Night sweats, Weakness, Weight change Eyes: Reports: As per HPI. Denies: Eye discharge, Eye pain, Photophobia, Vision change ENT: Reports: As per HPI. Denies: Congestion, Dental pain, Ear pain, Epistaxis , Hearing loss, Throat pain Respiratory: Reports: As per HPI. Denies: Cough, Dyspnea, Hemoptysis, Stridor, Wheezes Cardiovascular: Reports: As per HPI. Denies: Arrhythmia, Chest pain, Dyspnea on exertion, Edema, Murmurs, Orthopnea, Palpitations, Paroxysmal nocturnal dyspnea, Rheumatic Fever, Syncope Endocrine: Reports: As per HPI. Denies: Fatigue, Heat or cold intolerance, Polydipsia, Polyuria Gastrointestinal: Reports: As per HPI. Denies: Abdominal pain, Constipation, Diarrhea, Hematemesis, Hematochezia, Melena, Nausea, Vomiting Genitourinary: Reports: As per HPI. Denies: Abnormal menses, Discharge, Dyspareunia, Dysuria, Frequency, Hematuria, Incontinence, Retention, Urgency Musculoskeletal: Reports: As per HPI. Denies: Arthralgia, Back pain, Gout, Joint swelling, Myalgia, Neck pain Skin: Reports: As per HPI. Denies: Bruising, Change in color, Change in hair/ nails, Lesions, Pruritus, Rash Neurological: Reports: As per HPI. Denies: Abnormal gait, Confusion, Headache, Numbness, Paresthesias, Seizure, Tingling, Tremors, Vertigo, Weakness Psychiatric: Reports: As per HPI. Denies: Anxiety, Auditory hallucinations, Depression, Homicidal thoughts, Suicidal thoughts, Visual hallucinations Hematological/Lymphatic: Reports: As per HPI. Denies: Anemia, Blood Clots, Easy bleeding, Easy bruising, Swollen glands Past Medical History - SOCIAL HISTORY Smoking Status: Former smoker - RESPIRATORY Hx Respiratory Disorders: Yes Hx COPD: Yes - CARDIOVASCULAR Hx Cardio Disorders: Yes Hx Hypertension: Yes - NEURO Hx Neuro Disorders: No - GI Hx GI Disorders: No - Hx Genitourinary Disorders: No - ENDOCRINE Hx Endocrine Disorders: No - MUSCULOSKELETAL Hx Musculoskeletal Disorders: No - PSYCH Hx Psych Problems: No - HEMATOLOGY/ONCOLOGY Hx Hematology/Oncology Disorders: No Family Medical History Any Significant Family History?: Yes Hx Cancer: Father, Mother *Cancer Comment: mother- lung ca, father-colon ca Hx Resp Disorders: Father, Grandparents Physical Exam - General General Appearance: Alert, Oriented x3, Cooperative, Mild distress - Head Head exam: Normal inspection - Eye Eye exam: Normal appearance, PERRL, EOMI Pupils: Normal accommodation - ENT ENT exam: Normal exam, Mucous membranes moist, Normal external ear exam, Normal orophraynx Ear exam: Normal external inspection. negative: External canal tenderness Nasal Exam: Normal inspection. negative: Discharge, Sinus tenderness Mouth exam: Normal external inspection, Tongue normal Teeth exam: Normal inspection. negative: Dental caries Throat exam: Normal inspection. negative: Tonsillar erythema, Tonsillar exudate - Neck Neck exam: Normal inspection, Full ROM. negative: Tenderness - Respiratory Respiratory exam: Accessory muscle use, Respiratory distress, Wheezes - Cardiovascular Cardiovascular Exam: Normal rhythm, Normal heart sounds, Tachycardia - GI/Abdominal GI/Abdominal exam: Soft, Normal bowel sounds. negative: Tenderness - Rectal Rectal exam: Deferred - exam: Deferred - Extremities Extremities exam: Normal inspection, Full ROM, Normal capillary refill. negative: Tenderness - Back Back exam: Reports: Normal inspection, Full ROM. Denies: Muscle spasm, Rash noted, Tenderness - Neurological Neurological exam: Alert, Normal gait, Oriented X3, Reflexes normal - Psychiatric Psychiatric exam: Normal affect, Normal mood - Skin Skin exam: Dry, Intact, Normal color, Warm Course Vital Signs 05/16/16 05/16/16 05/16/16 22:58 23:00 23:05 Pulse Rate 102 H 98 H Pulse Rate [ Pulse Ox Probe] Respiratory 40 H 36 H Rate Blood Pressure 154/91 Blood Pressure [Right Arm] Pulse Ox 93 L 93 L 87 L 05/16/16 05/16/16 05/17/16 23:07 23:50 00:53 Pulse Rate 95 H 92 H Pulse Rate [ 94 H Pulse Ox Probe] Respiratory 32 H 32 H 28 H Rate Blood Pressure Blood Pressure 135/79 [Right Arm] Pulse Ox 94 L 95 93 L - Reevaluation(s) Reevaluation #1: 05/17/16 01:35 pt continues to be tachypneic and sob w wheezes Medical Decision Making - Lab Data Result diagrams: 05/16/16 23:06 05/16/16 23:06 Lab Results 05/16/16 05/16/16 05/16/16 Range/Units 23:06 23:06 23:06 WBC 8.3 (4.2-12.2) K/uL RBC 5.21 (3.80-5.40) M/uL Hgb 15.6 (11.6-16.0) gm/dl Hct 46.2 (35.0-47.0) % MCV 88.7 (81-97) fl MCH 29.9 (27-33) pg MCHC 33.8 (32-36) g/dl RDW 13.7 (11.5-14.5) % Plt Count 295 (130-400) K/uL MPV 8.5 (7.4-10.4) fl Gran % 42.6 L (47-80) % Lymphocytes % 35.5 (16-45) % Monocytes % 11.6 H (0-9) % Eosinophils % 9.6 H (0-6) % Basophils % 0.7 (0-6) % Sodium 142 (136-145) mmol/L Potassium 3.8 (3.5-5.1) mmol/L Chloride 104 (98-107) mmol/L Carbon Dioxide 30.1 H (22-30) mmol/L Anion Gap 7.9 (7-16) BUN 15 (7-17) mg/dL Creatinine 0.7 (0.52-1.04) mg/dL Estimated GFR > 60 ml/min Random Glucose 100 (70-110) mg/dL Calcium 10.7 H (8.5-10.1) mg/dL Influenza Type A Ag Negative (NEGATIVE) Influenza Type B Ag Negative (NEGATIVE) Disposition Disposition: Admit Clinical Impression: Acute exacerbation of COPD with asthma Decision to Admit: Admit from ER Decision to Admit Date: 05/17/16 Decision to Admit Time: 01:37
[2016-05-17] MEDS ORDERED: ACETAMINOPHEN 500 MG TABLET PO PRN (01:53)
[2016-05-17] MEDS ORDERED: IPRATROPIUM/ALBUTEROL (0.5MG/3MG) NEB INH SCH (05:00)
[2016-05-17] MEDS ORDERED: ALBUTEROL SULFATE (0.083%) 2.5 MG/3 ML NEB INH SCH (06:00)
--- NOTE | 2016-05-17 07:44 | RADIOLOGY REPORT ---
EXAM: CHEST, TWO VIEWS HISTORY: DIFFICULTY BREATHING. TECHNIQUE: Frontal and lateral views of the chest were obtained. Comparison: Prior chest from 03/06/16. FINDINGS: The heart size is normal. Underlying emphysema. Osteopenia. No pneumothorax. The lungs are clear. IMPRESSION: EMPHYSEMA. THE LUNGS ARE CLEAR. JOB NUMBER: [id number] MTDD
[2016-05-17] MEDS ORDERED: ALBUTEROL SULFATE (0.083%) 2.5 MG/3 ML NEB INH PRN (08:20)
[2016-05-17] MEDS ORDERED: GUAIFENESIN/D-METH. 10 ML UDC PO PRN (08:38)
[2016-05-17] MEDS: IPRATROPIUM/ALBUTEROL (0.5MG/3MG) NEB INH SCH ×2 (09:50→13:46)
[2016-05-17] MEDS ORDERED: AMLODIPINE BESYLATE 5MG TAB PO SCH (10:00)
[2016-05-17] MEDS ORDERED: CEFTRIAXONE SODIUM 1 GM in 0.9 % SODIUM CHLORIDE 100ML 100 ML IVPB SCH (10:00)
[2016-05-17] MEDS ORDERED: METHYLPREDNISOLONE PF 125MG/VIAL IVP SCH ×2 (10:00)
[2016-05-17] MEDS ORDERED: ASPIRIN 81 MG TABEC PO SCH (10:00)
[2016-05-17] MEDS ORDERED: AZITHROMYCIN 500 MG TABLET PO SCH (10:00)
--- NOTE | 2016-05-17 12:57 | Discharge Note ---
Discharge Note - Date Date of Discharge Note: 05/17/16 Disposition: Home, Self-Care Condition: (1) Good Additional Instructions: follow up with Dr. Sen in 7 days fluids increase use either ventolin inhaler 2 puffs every 4 hours or albuterol nebulizer every 4 hours start prednisone pills today with food Prescriptions: Albuterol Sulfate [Ventolin Hfa] 1 - 2 puff IH Q4HR PRN #1 inhaler PRN Reason: Difficulty In Breathing Prednisone [Prednisone 10Mg] 10 mg PO ASDIR #30 tab Azithromycin [Zithromax] 500 mg PO DAILY #7 tab Forms: Patient Portal Access
--- NOTE | 2016-05-17 13:19 | History and Physical Report ---
CHIEF COMPLAINT: Dyspnea and a cough. HISTORY OF PRESENT ILLNESS: This 65-year-old female states in the last three days she has gotten worse with her breathing, coughing, and bringing up sputum that is clear in color. Her has the same thing, but he is getting better. PAST MEDICAL HISTORY: COPD, tobacco use - she stopped in October of 2014, osteopenia, and hypertension. PAST SURGICAL HISTORY: Hysterectomy, cholecystectomy, appendectomy, and tubal ligation. MEDICATIONS ON ADMISSION: Q-Duc two puffs b.i.d., aspirin 81 mg q daily, Amlodipine 5 mg q daily, Ventolin inhaler two puffs every four hours prn, and also has a nebulizer of Albuterol q.i.d. 2.5 mg. ALLERGIES: NO known drug allergies. FAMILY/PSYCHOSOCIAL HISTORY: She is a former smoker, she stopped in October of 2014. Father and mother had cancer, mother had lung cancer and father had colon cancer. She denies any alcohol or drug use. REVIEW OF SYSTEMS: HEENT: She denies any visual problems, hearing problems, or swallowing problems. She does have congestion and cough. Cardiovascular: No chest pain or palpitations. She has shortness of breath with coughing spells and some pain in her chest with coughing. Respiratory: Short of breath , coughing and clear sputum. She has a history of COPD. Gastrointestinal: No nausea, vomiting, diarrhea, black stools, or bloody stools. Genitourinary: No dysuria, hematuria, frequency, or burning on urination. Musculoskeletal: She has some arthritis in her joints. Neurologic: No CVA, paralysis, or paresthesias. Gynecological: No lumps in her breasts or abnormal vaginal bleeding. Endocrine: No diabetes or thyroid disease. Integument: No rash, ulcers, change in moles or yellow skin. PHYSICAL EXAMINATION: Height is 5'4", weight is 165 pounds. Vital signs: Temperature is 97.1, pulse is 107, blood pressure is 113/77, respiratory rate is 20, pulse ox is 95% on two liters nasal cannula. HEENT: Pupils are equal, round and reactive to light and accommodation. Extraocular muscles are intact. Throat is clear. Nose is clear. Tympanic membranes are venegas. NECK: Supple. No jugular venous distention. No hepatojugular reflex. No carotid bruits. Thyroid is smooth. CARDIOVASCULAR: Regular rate and rhythm without murmurs, clicks, rubs or gallops. RESPIRATORY: She has some scant wheezing bilaterally. ABDOMEN: Soft, nontender. No hepatosplenomegaly. No masses. No tenderness. Bowel sounds are active. EXTREMITIES: No pitting edema. No cyanosis. No clubbing. Full range of motion. Peripheral pulses are good. Full range of motion of her joints. BREASTS: Deferred. RECTAL: Deferred. GENITALIA: Deferred. NEUROLOGICAL: Cranial nerves II through XII intact. No gross defects. Sensation normal. Strength normal. Deep tendon reflexes are equal bilaterally. Babinski's negative. MENTAL STATUS: Alert and oriented times three. IMPRESSION: 1. ACUTE BRONCHITIS. 2. ACUTE EXACERBATION OF COPD. 3. STATUS POST HYPERTENSION. 4. STATUS POST OSTEOPENIA. PLAN: IV Solu-Medrol, Rocephin IV, and Azithromycin 500 mg q daily. She is doing much better compared to last night, possible discharge. Rodney Sen D.O. Date & Time JOB NUMBER: [id number] MTDD
== END 2016-05-17 14:00 | disposition home or self-care (01) ==
LOC: ER 22:51 → MEDSURG 05-17 01:48
PROVIDERS: ADMIT Emergency Medicine; ATTEND Emergency Medicine
DX: J44.0 Chronic obstructive pulmonary disease with (acute) lower respiratory infection (principal); I10 Essential (primary) hypertension; M85.80 Other specified disorders of bone density and structure, unspecified site
CPT/HCPCS: 99285 ×2; 96374; 85025; 80048; 87400; 71020; 94640 ×3; 94761; G0378; J2930; J7613

== ENCOUNTER 2016-09-17 12:33 | Emergency (ER) | payer MEDICARE, OTHER ==
[2016-09-17] MEDS: IPRATROPIUM/ALBUTEROL (0.5MG/3MG) NEB INH ONE ×2 (12:50→13:02)
[2016-09-17] MEDS: METHYLPREDNISOLONE PF 125MG/VIAL IVP ONE (12:57)
[2016-09-17 13:12] LABS: BASO % 0.7 % (0-6); EOS % 10.7 % (0-6); GRAN % 48.8 % (47-80); HEMATOCRIT 43.1 % (35.0-47.0); HEMOGLOBIN 14.7 gm/dl (11.6-16.0); LYMPH % 30.4 % (16-45); MEAN CELL VOLUME 88.1 fl (81-97); MEAN CORPUSCULAR HEMOGLOBIN 30.1 pg (27-33); MEAN CORPUSCULAR HGB CONC 34.1 g/dl (32-36); MEAN PLATELET VOLUME 8.6 fl (7.4-10.4); MONO % 9.4 % (0-9); PLATELET COUNT 274 K/uL (130-400); RED BLOOD COUNT 4.89 M/uL (3.80-5.40); RED CELL DISTRIBUTION WIDTH 14.4 % (11.5-14.5); WHITE BLOOD COUNT W/O DIFF 5.4 K/uL (4.2-12.2)
[2016-09-17] MEDS: CEFTRIAXONE SODIUM 1 GM in 0.9 % SODIUM CHLORIDE 100ML 100 ML IVPB ONE (13:15)
[2016-09-17] MEDS: AZITHROMYCIN 500 MG TABLET PO ONE (13:15)
--- NOTE | 2016-09-17 13:15 | Emergency Department Record ---
History of Present Illness - General Chief Complaint: Difficulty Breathing Stated Complaint: LISE/COPD Time Seen by Provider: 09/17/16 12:41 Source: Patient, Family Mode of Arrival: Ambulatory Limitations: No limitations - History of Present Illness Initial Comments: 65 yo female presents with increasing shortness of breath, wheezing, cough with sputum. She has a history of COPD. She took her albuterol and Qvar without improvement. Today she noted some blood tinged sputum as well. No fever. She is not on oxygen at home. Dr Sen is her PCP. She quit smoking one year ago. MD Complaint: Cough, Shortness of breath Onset/Timin -: Days(s) Consistency: Constant Improves With: Nothing Worsens With: Nothing Known History Of: COPD, Other Context: Recent URI Associated Symptoms: Orthopnia, Sputum production, Other Treatments Prior to Arrival: Bronchodilator - Related Data Home Medications Medication Instructions Recorded Confirmed Last Taken Amlodipine Besylate [Norvasc] 5 mg PO DAILY 11/24/15 09/17/16 09/17/16 Aspirin [Aspirin EC] 81 mg PO DAILY 11/24/15 09/17/16 09/17/16 Beclomethasone Dipropionate [Qvar 2 puff IH BID 05/17/16 09/17/16 09/17/16 80 Mcg Inhaler] Ergocalciferol (Vitamin D2) 50,000 unit PO WEEKLY 09/17/16 09/17/16 09/14/16 [Vitamin D2] Loratadine 10 mg PO DAILY 09/17/16 09/17/16 09/17/16 Previous Rx's Medication Instructions Recorded Albuterol Sulfate [Ventolin Hfa] 1 - 2 puff IH .EVERY 4-6 HOURS PRN 11/25/15 #1 inhaler Albuterol Sulfate 0.083% [Neb] 2.5 mg INH QID PRN #120 03/07/16 nebulization solution Acetaminophen [Tylenol 500Mg Tab] 1,000 mg PO Q6H PRN #0 tablet 05/17/16 Amoxicillin 500 mg PO TID #21 capsule 09/17/16 Benzonatate [Tessalon] 1 cap PO Q8H PRN #20 cap 09/17/16 Prednisone [Prednisone 20Mg] 20 mg PO BID #10 tab 09/17/16 Allergies Allergy/AdvReac Type Severity Reaction Status Date / Time No Known Drug Allergies Allergy Verified 02/10/16 18:14 Travel Screening - Travel/Exposure Within Last 30 Days Have you traveled within the last 30 days?: No - Travel/Exposure Within Last Year Have you traveled outside the [place] in the last year?: No - Additonal Travel Details Have you been exposed to anyone with a communicable illness?: No - Travel Symptoms Symptom Screening: None Review of Systems Constitutional: Denies: Chills, Fever, Malaise, Weakness Eyes: Denies: Eye discharge, Eye pain, Photophobia ENT: Reports: Congestion Respiratory: Reports: Cough, Dyspnea, Hemoptysis, Wheezes Cardiovascular: Denies: Chest pain, Syncope Endocrine: Denies: Fatigue, Polydipsia, Polyuria Gastrointestinal: Denies: Abdominal pain, Diarrhea, Nausea, Vomiting Genitourinary: Denies: Dysuria, Urgency Musculoskeletal: Denies: Arthralgia, Back pain, Myalgia, Neck pain Skin: Denies: Bruising, Change in color, Rash Neurological: Denies: Headache, Numbness, Vertigo, Weakness Psychiatric: Denies: Anxiety Hematological/Lymphatic: Denies: Easy bleeding, Easy bruising, Swollen glands Past Medical History - SOCIAL HISTORY Smoking Status: Former smoker Alcohol Use: None Drug Use: None - RESPIRATORY Hx Respiratory Disorders: Yes Hx COPD: Yes - CARDIOVASCULAR Hx Cardio Disorders: Yes Hx Hypertension: Yes - NEURO Hx Neuro Disorders: No - GI Hx GI Disorders: No - Hx Genitourinary Disorders: No - ENDOCRINE Hx Endocrine Disorders: No - MUSCULOSKELETAL Hx Musculoskeletal Disorders: No - PSYCH Hx Psych Problems: No - HEMATOLOGY/ONCOLOGY Hx Hematology/Oncology Disorders: No Family Medical History Any Significant Family History?: No Hx Cancer: Father, Mother *Cancer Comment: mother- lung ca, father-colon ca Hx Resp Disorders: Father, Grandparents Physical Exam - General General Appearance: Alert, Oriented x3, Cooperative, No acute distress - Head Head exam: Normal inspection - Eye Eye exam: Normal appearance. negative: Conjunctival injection, Periorbital swelling - ENT ENT exam: Normal exam Ear exam: Normal external inspection Nasal Exam: Normal inspection Mouth exam: Normal external inspection - Neck Neck exam: Normal inspection, Full ROM. negative: Lymphadenopathy, Tenderness - Respiratory Respiratory exam: Accessory muscle use, Decreased breath sounds, Prolonged expiratory, Rhonchi, Wheezes. negative: Normal lung sounds bilaterally - Cardiovascular Cardiovascular Exam: Regular rate, Normal rhythm, Normal heart sounds - GI/Abdominal GI/Abdominal exam: Soft. negative: Tenderness - Rectal Rectal exam: Deferred - exam: Deferred - Extremities Extremities exam: Normal inspection, Full ROM, Normal capillary refill. negative: Pedal edema, Tenderness - Back Back exam: Reports: Normal inspection, Full ROM. Denies: Muscle spasm, Rash noted, Tenderness - Neurological Neurological exam: Alert, Normal gait, Oriented X3 - Psychiatric Psychiatric exam: Normal affect, Normal mood. negative: Agitated, Anxious - Skin Skin exam: Dry, Intact, Normal color, Warm Course Vital Signs 09/17/16 09/17/16 09/17/16 12:38 12:45 12:51 Temperature 97.7 F Pulse Rate 91 H 94 H 100 H Respiratory 32 H 32 H 36 H Rate Blood Pressure 139/102 Pulse Ox 95 95 95 - Reevaluation(s) Reevaluation #1: The patient received two nebulized treatments. Her wheezing is improving. Work of breathing is improved. 09/17/16 13:14 Reevaluation #2: EKG NSR, rate 91, intervals QTc 572, [place] leftward, ST NS diffuse t wave flattening no changes 03/06.09/17/16 13:26 Reevaluation #3: No acute changes on the CBC, CMP,D-dimer, BNP, Troponin The CXR was read as no acute changes. Changes are chronic and consistent with COPD. 09/17/16 13:36 09/17/16 13:42 The patient was rechecked She is feeling better She is 95% on room air with improved air exchange and minimal wheeze Plan to recheck again shortly 09/17/16 14:30 On recheck the patient still with increased RR Room air saturations in low 90's Frequent persistent cough still I will discuss with the PCP Reevaluation #4: The patient states she is feeling much better No hypxia in the ED She request to go home She has an appointment tomorrow with her PCP 09/17/16 15:25 Medical Decision Making - Lab Data Result diagrams: 09/17/16 13:05 09/17/16 13:05 Disposition Disposition: Discharge Clinical Impression: COPD with acute exacerbation Disposition: Home, Self-Care Condition: (1) Good Instructions: COPD (Chronic Obstructive Pulmonary Disease) (ED) Additional Instructions: Return if your breathing worsens, fever, short of breath or any new concerns Follow up tomorrow with Dr Sen as scheduled You may use your inhaler every 4 hours If you need it more than that return to the ED Prescriptions: Amoxicillin 500 mg PO TID #21 capsule Benzonatate [Tessalon] 1 cap PO Q8H PRN #20 cap PRN Reason: Cough Prednisone [Prednisone 20Mg] 20 mg PO BID #10 tab Forms: Patient Portal Access Time of Disposition: 15:30 Quality - Quality Measures Quality Measures: N/A - Blood Pressure Screening View Details: Yes Blood Pressure Classification: Normal BP Reading Systolic Measurement: 116 Diastolic Measurement: 64 Screening for High Blood Pressure: < Normal BP, F/U Not Required > [G8783] Normal BP Follow-up Interventions: No follow-up required Pre-Hypertensive Follow-up Interventions: Referral to alternative/primary care provider.
[2016-09-17 13:23] LABS: ALB/GLOB RATIO 1.9 (1.1-1.8); ALBUMIN 4.2 gm/dL (3.5-5.0); ALKALINE PHOSPHATASE 59 U/L (38-126); ALT/SGPT 41 U/L (9-52); ANION GAP 6.5 (7-16); AST/SGOT 21 U/L (14-36); BILIRUBIN,TOTAL 1.13 mg/dL (0.2-1.3); BLOOD UREA NITROGEN 9 mg/dL (7-17); CARBON DIOXIDE 25.5 mmol/L (22-30); CREATININE 0.7 mg/dL (0.52-1.04); EST GLOMERULAR FILTRATION RATE > 60 ml/min; GLUCOSE,RANDOM 103 mg/dL (70-110); TOTAL PROTEIN 6.4 gm/dL (6.3-8.2)
[2016-09-17 13:35] LABS: TROPONIN I < 0.012 ng/mL (0.00-0.034)
[2016-09-17 13:38] LABS: INR 0.93; PARTIAL THROMBOPLASTIN TIME 23.6 SECONDS (24.5-39.1)
[2016-09-17] MEDS: ALBUTEROL HFA 8 GM INHALER INH ONE (15:41)
--- NOTE | 2016-09-18 21:06 | RADIOLOGY REPORT ---
EXAM: CHEST 2 VIEWS HISTORY: COPD. TECHNIQUE: PA AND LATERAL VIEWS. COMPARISON: TWO-VIEW CHEST 05/16/16. FINDINGS: Stable heart size, within normal limits. Mild torsion of the aorta. The lungs again appear somewhat hyperinflated suggesting underlying COPD. No definite acute infiltrate is seen and no pleural effusion or pneumothorax evident. IMPRESSION: 1. HYPERINFLATION SUGGESTING COPD. 2. NO ACUTE INFILTRATE EVIDENT. 3. MILD SPURRING IN THE SPINE. JOB NUMBER: [id number] MTDD
== END 2016-09-17 15:50 | disposition home or self-care (01) ==
LOC: ER 12:33
DX: J44.1 Chronic obstructive pulmonary disease with (acute) exacerbation (principal); R06.02 Shortness of breath; I10 Essential (primary) hypertension; Z87.891 Personal history of nicotine dependence
CPT/HCPCS: 71020; 80053; 83880; 84484; 85025; 85379; 85610; 85730; 93005; 93010; 94640; 96365; 96366; 96375; 99284; J2930

== ENCOUNTER 2016-09-30 10:00 | Emergency (ER) | payer MEDICARE, OTHER ==
[2016-09-30] MEDS: IPRATROPIUM/ALBUTEROL (0.5MG/3MG) NEB INH ONE (10:16)
[2016-09-30] MEDS: METHYLPREDNISOLONE PF 125MG/VIAL IVP ONE (10:29)
--- NOTE | 2016-09-30 10:35 | Emergency Department Record ---
History of Present Illness - General Chief Complaint: Difficulty Breathing Stated Complaint: LISE Time Seen by Provider: 09/30/16 10:07 Source: Patient Mode of Arrival: Ambulatory - History of Present Illness Initial Comments: short of breath and dyspea worse through the night and this has been coming on for three days and recently off amoxil from September 17 and prednisone stopped about 4 days ago. Patient complains of throat dyscomfort. Using q ceasar twice a day. Also using albuterol frquently. Onset/Timin -: Days(s) Severity: Moderate Severity scale (1-10): 4 Quality: Aching Consistency: Constant Improves With: Bronchodilators Worsens With: Exertion - Related Data Home Medications Medication Instructions Recorded Confirmed Last Taken Amlodipine Besylate [Norvasc] 5 mg PO DAILY 11/24/15 09/30/16 1 Day Ago ~09/29/16 Aspirin [Aspirin EC] 81 mg PO DAILY 11/24/15 09/30/16 1 Day Ago ~09/29/16 Beclomethasone Dipropionate [Qvar 2 puff IH BID 05/17/16 09/30/16 1 Day Ago 80 Mcg Inhaler] ~09/29/16 Ergocalciferol (Vitamin D2) 50,000 unit PO WEEKLY 09/17/16 09/30/16 1 Day Ago [Vitamin D2] ~09/29/16 Loratadine 10 mg PO DAILY 09/17/16 09/30/16 1 Day Ago ~09/29/16 Previous Rx's Medication Instructions Recorded Albuterol Sulfate [Ventolin Hfa] 1 - 2 puff IH .EVERY 4-6 HOURS PRN 11/25/15 #1 inhaler Albuterol Sulfate 0.083% [Neb] 2.5 mg INH QID PRN #120 03/07/16 nebulization solution Acetaminophen [Tylenol 500Mg Tab] 1,000 mg PO Q6H PRN #0 tablet 05/17/16 Doxycycline Hyclate [Doxycycline] 100 mg PO BID #20 cap 09/30/16 Prednisone [Prednisone 10Mg] 10 mg PO ASDIR #30 tab 09/30/16 Allergies Allergy/AdvReac Type Severity Reaction Status Date / Time No Known Drug Allergies Allergy Verified 02/10/16 18:14 Travel Screening - Travel/Exposure Within Last 30 Days Have you traveled within the last 30 days?: No - Travel/Exposure Within Last Year Have you traveled outside the [place] in the last year?: No - Additonal Travel Details Have you been exposed to anyone with a communicable illness?: No - Travel Symptoms Symptom Screening: None Review of Systems Reviewed: No additional complaints except as noted below Constitutional: Reports: As per HPI. Denies: Chills, Fever, Malaise, Night sweats, Weakness, Weight change Eyes: Reports: As per HPI. Denies: Eye discharge, Eye pain, Photophobia, Vision change ENT: Reports: As per HPI. Denies: Congestion, Dental pain, Ear pain, Epistaxis , Hearing loss, Throat pain Respiratory: Reports: As per HPI. Denies: Cough, Dyspnea, Hemoptysis, Stridor, Wheezes Cardiovascular: Reports: As per HPI. Denies: Arrhythmia, Chest pain, Dyspnea on exertion, Edema, Murmurs, Orthopnea, Palpitations, Paroxysmal nocturnal dyspnea, Rheumatic Fever, Syncope Endocrine: Reports: As per HPI. Denies: Fatigue, Heat or cold intolerance, Polydipsia, Polyuria Gastrointestinal: Reports: As per HPI. Denies: Abdominal pain, Constipation, Diarrhea, Hematemesis, Hematochezia, Melena, Nausea, Vomiting Genitourinary: Reports: As per HPI. Denies: Abnormal menses, Discharge, Dyspareunia, Dysuria, Frequency, Hematuria, Incontinence, Retention, Urgency Musculoskeletal: Reports: As per HPI. Denies: Arthralgia, Back pain, Gout, Joint swelling, Myalgia, Neck pain Skin: Reports: As per HPI. Denies: Bruising, Change in color, Change in hair/ nails, Lesions, Pruritus, Rash Neurological: Reports: As per HPI. Denies: Abnormal gait, Confusion, Headache, Numbness, Paresthesias, Seizure, Tingling, Tremors, Vertigo, Weakness Psychiatric: Reports: As per HPI. Denies: Anxiety, Auditory hallucinations, Depression, Homicidal thoughts, Suicidal thoughts, Visual hallucinations Hematological/Lymphatic: Reports: As per HPI. Denies: Anemia, Blood Clots, Easy bleeding, Easy bruising, Swollen glands Past Medical History - SOCIAL HISTORY Smoking Status: Former smoker Alcohol Use: None Drug Use: None - RESPIRATORY Hx Respiratory Disorders: Yes Hx Bronchitis: Yes Hx COPD: Yes - CARDIOVASCULAR Hx Cardio Disorders: Yes Hx Hypertension: Yes - NEURO Hx Neuro Disorders: No - GI Hx GI Disorders: No - Hx Genitourinary Disorders: No - ENDOCRINE Hx Endocrine Disorders: No - MUSCULOSKELETAL Hx Musculoskeletal Disorders: No - PSYCH Hx Psych Problems: No - HEMATOLOGY/ONCOLOGY Hx Hematology/Oncology Disorders: No Family Medical History Any Significant Family History?: Yes Hx Cancer: Father, Mother *Cancer Comment: mother- lung ca, father-colon ca Hx Resp Disorders: Father, Grandparents Physical Exam - General General Appearance: Alert, Oriented x3, Cooperative, No acute distress - Head Head exam: Normal inspection - Eye Eye exam: Normal appearance, PERRL Pupils: Normal accommodation - ENT ENT exam: Normal exam, Mucous membranes moist, Normal external ear exam, Normal orophraynx, TM's normal bilaterally Ear exam: Normal external inspection. negative: External canal tenderness Nasal Exam: Normal inspection. negative: Discharge, Sinus tenderness Mouth exam: Normal external inspection, Tongue normal Teeth exam: Normal inspection. negative: Dental caries Throat exam: Normal inspection. negative: Tonsillar erythema, Tonsillar exudate - Neck Neck exam: Normal inspection, Full ROM. negative: Tenderness - Respiratory Respiratory exam: Normal lung sounds bilaterally, Wheezes (scant). negative: Respiratory distress - Cardiovascular Cardiovascular Exam: Regular rate, Normal rhythm, Normal heart sounds - GI/Abdominal GI/Abdominal exam: Soft, Normal bowel sounds. negative: Tenderness - Rectal Rectal exam: Deferred - exam: Deferred - Extremities Extremities exam: Normal inspection, Full ROM, Normal capillary refill. negative: Tenderness - Back Back exam: Reports: Normal inspection, Full ROM. Denies: Muscle spasm, Rash noted, Tenderness - Neurological Neurological exam: Alert, Normal gait, Oriented X3, Reflexes normal - Psychiatric Psychiatric exam: Normal affect, Normal mood - Skin Skin exam: Dry, Intact, Normal color, Warm Course Vital Signs 09/30/16 09/30/16 10:03 10:25 Temperature 97.7 F Pulse Rate 101 H 100 H Respiratory 28 H 20 Rate Blood Pressure 127/84 Pulse Ox 92 L 92 L Medical Decision Making - Lab Data Result diagrams: 09/30/16 10:33 09/30/16 10:33 Disposition Clinical Impression: COPD with acute exacerbation, Bronchitis Disposition: Home, Self-Care Condition: (1) Good Instructions: Acute Bronchitis (ED), COPD (Chronic Obstructive Pulmonary Disease) (ED), Dyspnea (ED) Additional Instructions: follow up with Dr. Sen in 4 day increase q ceasar tp 3 puff BID continue albuterol every 4 hours Prescriptions: Doxycycline Hyclate [Doxycycline] 100 mg PO BID #20 cap Prednisone [Prednisone 10Mg] 10 mg PO ASDIR #30 tab Forms: Patient Portal Access Time of Disposition: 11:34 Quality - Quality Measures Quality Measures: N/A - Blood Pressure Screening Does Patient Have Any of the Following: Active Dx of HTN Blood Pressure Classification: Pre-Hypertensive BP Reading Systolic Measurement: 127 Diastolic Measurement: 84 Screening for High Blood Pressure: Patient Exclusion, Hx of HTN [G9744]
[2016-09-30 10:38] LABS: BASO % 0.5 % (0-6); EOS % 12.2 % (0-6); GRAN % 51.8 % (47-80); HEMATOCRIT 43.8 % (35.0-47.0); HEMOGLOBIN 14.9 gm/dl (11.6-16.0); LYMPH % 26.6 % (16-45); MEAN CELL VOLUME 89.2 fl (81-97); MEAN CORPUSCULAR HEMOGLOBIN 30.3 pg (27-33); MEAN PLATELET VOLUME 8.5 fl (7.4-10.4); MONO % 8.9 % (0-9); PLATELET COUNT 279 K/uL (130-400); RED BLOOD COUNT 4.91 M/uL (3.80-5.40); RED CELL DISTRIBUTION WIDTH 14.8 % (11.5-14.5); WHITE BLOOD COUNT W/O DIFF 7.8 K/uL (4.2-12.2)
[2016-09-30 10:49] LABS: ANION GAP 8.1 (7-16); BLOOD UREA NITROGEN 9 mg/dL (7-17); CARBON DIOXIDE 22.9 mmol/L (22-30); CREATININE 0.7 mg/dL (0.52-1.04); EST GLOMERULAR FILTRATION RATE > 60 ml/min; GLUCOSE,RANDOM 96 mg/dL (70-110)
--- NOTE | 2016-10-02 09:49 | RADIOLOGY REPORT ---
EXAM: CHEST, TWO VIEWS HISTORY: SHORTNESS OF BREATH, COPD. TECHNIQUE: Two views of the chest are provided along with the comparison study dated 09/17/16. FINDINGS: The cardiomediastinal silhouette is within normal limits for size and contour. The meghann appear unremarkable. COPD changes are identified bilaterally. No focal infiltrate, pleural effusion, or pneumothorax is noted. IMPRESSION: STABLE COPD CHANGES WITH RESPECT TO THE PRIOR EXAMINATION. JOB NUMBER: [id number] MTDD
== END 2016-09-30 11:48 | disposition home or self-care (01) ==
LOC: ER 10:00
DX: J44.1 Chronic obstructive pulmonary disease with (acute) exacerbation (principal); J20.9 Acute bronchitis, unspecified; J44.0 Chronic obstructive pulmonary disease with (acute) lower respiratory infection; Z87.891 Personal history of nicotine dependence; I10 Essential (primary) hypertension
CPT/HCPCS: 71020; 80048; 85025; 94640; 96374; 99284; J2930

== ENCOUNTER 2016-10-28 18:55 | Emergency (ER) | payer MEDICARE, OTHER ==
[2016-10-28] MEDS ORDERED: IPRATROPIUM/ALBUTEROL (0.5MG/3MG) NEB INH ONE (19:03)
[2016-10-28] MEDS ORDERED: METHYLPREDNISOLONE PF 125MG/VIAL IVP ONE (19:03)
--- NOTE | 2016-10-28 19:08 | Emergency Department Record ---
History of Present Illness - General Stated Complaint: LISE Time Seen by Provider: 10/28/16 19:03 Source: Patient Mode of Arrival: Ambulatory Limitations: No limitations - History of Present Illness Initial Comments: 66 yo female with a past medical history significant for COPD presents to ED with a CC of difficulty breathing that began this afternoon assocaited with a non-productive cough. Patient reports using her nebulizer x 2 this afternoon without significant improvement. Patient denies fevers, chills, or recent illness. Patient denies chest pain symptoms. MD Complaint: Shortness of breath Onset/Timin -: Hour(s) Severity: Moderate Consistency: Constant Improves With: Nothing Worsens With: Nothing Known History Of: COPD Associated Symptoms: Denies other symptoms Treatments Prior to Arrival: Bronchodilator - Related Data Home Oxygen Therapy: No Previous Rx's Medication Instructions Recorded Albuterol Sulfate [Ventolin Hfa] 1 - 2 puff IH .EVERY 4-6 HOURS PRN 11/25/15 #1 inhaler Albuterol Sulfate 0.083% [Neb] 2.5 mg INH QID PRN #120 03/07/16 nebulization solution Acetaminophen [Tylenol 500Mg Tab] 1,000 mg PO Q6H PRN #0 tablet 05/17/16 Doxycycline Hyclate [Doxycycline] 100 mg PO BID #20 cap 09/30/16 Prednisone [Prednisone 10Mg] 10 mg PO ASDIR #30 tab 09/30/16 Prednisone [Prednisone 20Mg] 20 mg PO TID #15 tab 10/28/16 Allergies Allergy/AdvReac Type Severity Reaction Status Date / Time No Known Drug Allergies Allergy Verified 02/10/16 18:14 Review of Systems Constitutional: Denies: Chills, Fever, Malaise, Night sweats Eyes: Denies: Eye discharge, Eye pain ENT: Denies: Congestion, Ear pain, Epistaxis Respiratory: Reports: Cough, Dyspnea, Wheezes Cardiovascular: Reports: Dyspnea on exertion. Denies: Chest pain Endocrine: Denies: Fatigue, Heat or cold intolerance Gastrointestinal: Denies: Abdominal pain, Nausea, Vomiting Genitourinary: Denies: Incontinence, Retention Musculoskeletal: Denies: Arthralgia, Back pain, Gout, Joint swelling Skin: Denies: Bruising, Change in color Neurological: Denies: Abnormal gait, Confusion, Headache, Tingling Psychiatric: Denies: Anxiety Hematological/Lymphatic: Denies: Anemia, Blood Clots Past Medical History - SOCIAL HISTORY Smoking Status: Former smoker Drug Use: None - RESPIRATORY Hx Respiratory Disorders: Yes Hx Bronchitis: Yes Hx COPD: Yes - CARDIOVASCULAR Hx Cardio Disorders: Yes Hx Hypertension: Yes - NEURO Hx Neuro Disorders: No - GI Hx GI Disorders: No - Hx Genitourinary Disorders: No - ENDOCRINE Hx Endocrine Disorders: No - MUSCULOSKELETAL Hx Musculoskeletal Disorders: No - PSYCH Hx Psych Problems: No - HEMATOLOGY/ONCOLOGY Hx Hematology/Oncology Disorders: No Family Medical History Hx Cancer: Father, Mother *Cancer Comment: mother- lung ca, father-colon ca Hx Resp Disorders: Father, Grandparents Physical Exam - General General Appearance: Alert, Oriented x3, Cooperative, Moderate distress Limitations: No limitations - Head Head exam: Atraumatic, Normocephalic, Normal inspection Head exam detail: negative: Abrasion, Contusion, Palumbo's sign, General tenderness, Hematoma, Laceration - Eye Eye exam: Normal appearance. negative: Conjunctival injection, Periorbital swelling, Periorbital tenderness, Scleral icterus - ENT Ear exam: negative: Auricular hematoma, Auricular trauma Nasal Exam: negative: Active bleeding, Discharge, Dried blood Mouth exam: negative: Drooling, Laceration, Tongue elevation - Neck Neck exam: Normal inspection. negative: Meningismus, Tenderness - Respiratory Respiratory exam: Decreased breath sounds, Respiratory distress. negative: Rhonchi, Stridor, Wheezes - Cardiovascular Cardiovascular Exam: Regular rate, Normal rhythm, Normal heart sounds - GI/Abdominal GI/Abdominal exam: Soft. negative: Rebound, Rigid, Tenderness - Rectal Rectal exam: Deferred - exam: Deferred - Extremities Extremities exam: negative: Pedal edema, Tenderness - Back Back exam: Denies: CVA tenderness (R), CVA tenderness (L) - Neurological Neurological exam: Alert, Oriented X3. negative: Motor sensory deficit - Psychiatric Psychiatric exam: Normal affect, Normal mood - Skin Skin exam: Normal color. negative: Abrasion Type of lesion: negative: abrasion Course - Reevaluation(s) Reevaluation #1: 10/28/16 19:27 EKG: Sinus Tachycardia 101 Normal axis, normal intervals No acute ST-T wave changes Reevaluation #2: 10/28/16 19:54 Labs reviewed and are grossly unremarkable for an acute process. CXR: No acute process Reevaluation #3: 10/28/16 20:02 Patient reassessed and updated on all results, just completed 2nd albuterol, BS are improved with mild wheezing now present, still having pursed breathing. Will re-evaluate in 30 minutes for 3 rd albuterol and possible admission. Reevaluation #4: 10/28/16 21:11 Ambulating biox performed, patient ambulated with steady gait quickly around the ED, maintained RA biox above 91%. Patient was mildly winded following her ambulation trial, discussed observation vs. discharge home, patient reports that she prefers to go home at this time. Patient was counseled to return to ED for any worsening of her symptoms, will discharge home on Prednisone burst for her COPD symptoms. Medical Decision Making - Lab Data Result diagrams: 10/28/16 19:11 10/28/16 19:11 Disposition Disposition: Discharge Clinical Impression: COPD with acute exacerbation Disposition: Home, Self-Care Condition: (2) Stable Instructions: COPD (Chronic Obstructive Pulmonary Disease) (ED) Additional Instructions: Return to ED if your symptoms worsen or if you have any concerns. Prednisone as directed. Follow-up with Dr. Sen in 1-3 days as directed. Prescriptions: Prednisone [Prednisone 20Mg] 20 mg PO TID #15 tab Time of Disposition: 21:15 Quality - Quality Measures Quality Measures: N/A - Blood Pressure Screening Does Patient Have Any of the Following: No Blood Pressure Classification: Pre-Hypertensive BP Reading Systolic Measurement: 126 Diastolic Measurement: 86 Screening for High Blood Pressure: < Pre-Hypertensive BP, F/U Documented > [ G8950] Pre-Hypertensive Follow-up Interventions: Referral to alternative/primary care provider.
[2016-10-28 19:17] LABS: HEMATOCRIT 42.4 % (35.0-47.0); HEMOGLOBIN 14.4 gm/dl (11.6-16.0); MEAN CELL VOLUME 88.9 fl (81-97); MEAN CORPUSCULAR HEMOGLOBIN 30.2 pg (27-33); MEAN PLATELET VOLUME 8.3 fl (7.4-10.4); PLATELET COUNT 280 K/uL (130-400); RED BLOOD COUNT 4.77 M/uL (3.80-5.40); WHITE BLOOD COUNT W/O DIFF 6.5 K/uL (4.2-12.2)
[2016-10-28 19:28] LABS: ALB/GLOB RATIO 1.6 (1.1-1.8); ALKALINE PHOSPHATASE 60 U/L (38-126); ALT/SGPT 46 U/L (9-52); ANION GAP 7.4 (7-16); AST/SGOT 26 U/L (14-36); BILIRUBIN,TOTAL 0.53 mg/dL (0.2-1.3); BLOOD UREA NITROGEN 15 mg/dL (7-17); CARBON DIOXIDE 26.6 mmol/L (22-30); CREATININE 0.8 mg/dL (0.52-1.04); EST GLOMERULAR FILTRATION RATE > 60 ml/min; GLUCOSE,RANDOM 109 mg/dL (70-110); TOTAL PROTEIN 6.5 gm/dL (6.3-8.2)
[2016-10-28] MEDS ORDERED: ALBUTEROL SULFATE (0.083%) 2.5 MG/3 ML NEB INH ONE (19:54)
[2016-10-28] MEDS ORDERED: ALBUTEROL SULFATE (0.083%) 2.5 MG/3 ML NEB INH SCH (20:00)
--- NOTE | 2016-10-29 01:42 | RADIOLOGY REPORT ---
EXAM: CHEST 2 VIEWS HISTORY: SHORTNESS OF BREATH. TECHNIQUE: Chest x-ray, two views. COMPARISON: 09/30/16. FINDINGS: The heart is not enlarged. There is no mediastinal mass. There is no acute infiltrate or vascular congestion identified. The lungs are hyperinflated. IMPRESSION: 1. NO ACUTE CARDIAC OR PULMONARY ABNORMALITY. 2. THE LUNGS ARE HYPERINFLATED. JOB NUMBER: [id number] MTDD
== END 2016-10-28 21:23 | disposition home or self-care (01) ==
LOC: ER 18:55
DX: J44.1 Chronic obstructive pulmonary disease with (acute) exacerbation (principal); Z87.891 Personal history of nicotine dependence
CPT/HCPCS: 71020; 80053; 85027; 93005; 93010; 94640; 96374; 99284; J2930; J7613

== ENCOUNTER 2016-11-18 16:30 | Observation (INO) | payer MEDICARE, OTHER ==
[2016-11-18] MEDS ORDERED: IPRATROPIUM/ALBUTEROL (0.5MG/3MG) NEB INH ONE (16:48)
[2016-11-18] MEDS ORDERED: METHYLPREDNISOLONE PF 125MG/VIAL IVP ONE (16:50)
--- NOTE | 2016-11-18 16:54 | Emergency Department Record ---
History of Present Illness - General Chief Complaint: Shortness of breath Stated Complaint: LISE Time Seen by Provider: 11/18/16 16:45 Source: Patient Mode of Arrival: Ambulatory Limitations: No limitations - History of Present Illness Initial Comments: 66 yo male presents with cough, wheezing, and shortness of breath for 3 days. She has a history of COPD. No fever. The sputum is clear. No blood or discolored sputum. No fevers. No chest pain. No abdominal pain. She is using her albuterol for than her typical amount. No current oral steroids or antibiotics. MD Complaint: Shortness of breath Onset/Timin -: Days(s) Radiation: Other Quality: Aching Consistency: Constant Improves With: Bronchodilators Worsens With: Lying flat Known History Of: COPD Associated Symptoms: Cough, Polyuria Treatments Prior to Arrival: None - Related Data Home Oxygen Therapy: No Previous Rx's Medication Instructions Recorded Albuterol Sulfate [Ventolin Hfa] 1 - 2 puff IH .EVERY 4-6 HOURS PRN 11/25/15 #1 inhaler Allergies Allergy/AdvReac Type Severity Reaction Status Date / Time No Known Drug Allergies Allergy Verified 02/10/16 18:14 Travel Screening - Travel/Exposure Within Last 30 Days Have you traveled within the last 30 days?: No Review of Systems Constitutional: Denies: Chills, Fever, Malaise, Weakness Eyes: Denies: Eye discharge ENT: Denies: Congestion Respiratory: Reports: Cough, Dyspnea, Wheezes. Denies: Hemoptysis Cardiovascular: Reports: Edema (chronic, currently improved). Denies: Chest pain, Palpitations, Syncope Endocrine: Denies: Fatigue, Polydipsia, Polyuria Gastrointestinal: Denies: Abdominal pain, Diarrhea, Nausea, Vomiting Genitourinary: Denies: Dysuria, Urgency Musculoskeletal: Denies: Arthralgia, Back pain, Joint swelling, Myalgia Skin: Denies: Bruising, Change in color, Rash Neurological: Denies: Headache, Numbness, Weakness Psychiatric: Denies: Anxiety Hematological/Lymphatic: Denies: Anemia, Blood Clots, Easy bleeding, Easy bruising, Swollen glands Past Medical History - SOCIAL HISTORY Smoking Status: Former smoker - RESPIRATORY Hx Respiratory Disorders: Yes Hx Bronchitis: Yes Hx COPD: Yes - CARDIOVASCULAR Hx Cardio Disorders: Yes Hx Hypertension: Yes - NEURO Hx Neuro Disorders: No - GI Hx GI Disorders: No - Hx Genitourinary Disorders: No - ENDOCRINE Hx Endocrine Disorders: No - MUSCULOSKELETAL Hx Musculoskeletal Disorders: No - PSYCH Hx Psych Problems: No - HEMATOLOGY/ONCOLOGY Hx Hematology/Oncology Disorders: No Family Medical History Any Significant Family History?: Yes Hx Cancer: Father, Mother *Cancer Comment: mother- lung ca, father-colon ca Hx Resp Disorders: Father, Grandparents Physical Exam - General General Appearance: Alert, Oriented x3, Cooperative, Anxious Limitations: No limitations - Head Head exam: Atraumatic, Normocephalic, Normal inspection - Eye Eye exam: Normal appearance, PERRL Pupils: Normal accommodation - ENT ENT exam: Normal exam, Mucous membranes moist, Normal external ear exam, Normal orophraynx, TM's normal bilaterally Ear exam: Normal external inspection. negative: External canal tenderness Nasal Exam: Normal inspection. negative: Discharge, Sinus tenderness Mouth exam: Normal external inspection, Tongue normal Teeth exam: Normal inspection. negative: Dental caries Throat exam: Normal inspection. negative: Tonsillar erythema, Tonsillar exudate - Neck Neck exam: Normal inspection, Full ROM. negative: Tenderness - Respiratory Respiratory exam: Accessory muscle use, Decreased breath sounds, Prolonged expiratory, Rhonchi, Wheezes. negative: Normal lung sounds bilaterally, Rales, Respiratory distress, Stridor - Cardiovascular Cardiovascular Exam: Regular rate, Normal rhythm, Normal heart sounds - GI/Abdominal GI/Abdominal exam: Soft, Normal bowel sounds. negative: Tenderness - Rectal Rectal exam: Deferred - exam: Deferred - Extremities Extremities exam: Normal inspection, Full ROM, Normal capillary refill. negative: Tenderness - Back Back exam: Reports: Normal inspection, Full ROM. Denies: Muscle spasm, Rash noted, Tenderness - Neurological Neurological exam: Alert, Normal gait, Oriented X3 - Psychiatric Psychiatric exam: Normal affect, Normal mood. negative: Agitated, Anxious - Skin Skin exam: Dry, Intact, Normal color, Warm Course Vital Signs 11/18/16 11/18/16 16:37 16:44 Temperature 97.9 F Pulse Rate 98 H 106 H Respiratory 34 H 25 H Rate Blood Pressure 146/94 Pulse Ox 94 L 93 L - Reevaluation(s) Reevaluation #1: EKG 17:06 NSR rate of 98, intervals normal, axis left, poor R wave progression. No changes from 09/17/16 11/18/16 17:31 Reevaluation #2: No acute changes on the labs The CXR was read as COPD The patient is on 2 LN with 94% saturations with wheezing 11/18/16 18:17 11/18/16 18:[address] Sen regarding OBV for COPD with continued wheezing 11/18/16 18:25 Medical Decision Making - Lab Data Result diagrams: 11/18/16 17:25 11/18/16 17:25 Disposition Disposition: Admit Clinical Impression: COPD with acute exacerbation Disposition: Still a Patient at [facility] Decision to Admit: Admit from ER Decision to Admit Date: 11/18/16 Decision to Admit Time: 18:18 Condition: (1) Good Time of Disposition: 18:18 Quality - Quality Measures Quality Measures: N/A - Blood Pressure Screening Does Patient Have Any of the Following: Active Dx of HTN Blood Pressure Classification: Pre-Hypertensive BP Reading Systolic Measurement: 132 Diastolic Measurement: 87 Screening for High Blood Pressure: Patient Exclusion, Hx of HTN [G9744] Pre-Hypertensive Follow-up Interventions: Referral to alternative/primary care provider.
[2016-11-18 17:38] LABS: HEMATOCRIT 45.9 % (35.0-47.0); HEMOGLOBIN 15.5 gm/dl (11.6-16.0); MEAN CELL VOLUME 88.8 fl (81-97); MEAN CORPUSCULAR HGB CONC 33.8 g/dl (32-36); MEAN PLATELET VOLUME 8.6 fl (7.4-10.4); PLATELET COUNT 249 K/uL (130-400); RED BLOOD COUNT 5.17 M/uL (3.80-5.40); RED CELL DISTRIBUTION WIDTH 14.7 % (11.5-14.5); WHITE BLOOD COUNT W/O DIFF 6.7 K/uL (4.2-12.2)
[2016-11-18 17:47] LABS: PLATELET ESTIMATE NORMAL (NORMAL)
[2016-11-18 18:09] LABS: ALB/GLOB RATIO 1.9 (1.1-1.8); ALBUMIN 4.2 g/dL (4.0-5.0); ALKALINE PHOSPHATASE 57 U/L (35-104); ALT/SGPT 27 U/L (<33); AST/SGOT 24 U/L (10.0-35.0); BLOOD UREA NITROGEN 11 mg/dL (8-23); CREATININE 0.6 mg/dL (0.5-0.9); EST GLOMERULAR FILTRATION RATE > 60 mL/min; GLUCOSE,RANDOM 97 mg/dL (74-109); NTpro B-NATRIURETIC PEPTIDE 23.55 pg/mL (<125); TOTAL PROTEIN 6.4 g/dL (6.6-8.7); TROPONIN I < 0.30 ng/mL (0.00-0.300)
[2016-11-18] MEDS ORDERED: ALBUTEROL SULFATE (0.083%) 2.5 MG/3 ML NEB INH ONE (18:17)
[2016-11-18] MEDS ORDERED: CEFTRIAXONE SODIUM 1 GM in 0.9 % SODIUM CHLORIDE 100ML 100 ML IVPB SCH (20:01)
[2016-11-18] MEDS ORDERED: ALBUTEROL SULFATE (0.083%) 2.5 MG/3 ML NEB INH PRN (20:01)
[2016-11-18] MEDS ORDERED: ACETAMINOPHEN 500 MG TABLET PO PRN (20:01)
[2016-11-18] MEDS ORDERED: BECLOMETHASONE DIPROPIONATE IH SCH (22:00)
[2016-11-18] MEDS: METHYLPREDNISOLONE PF 125MG/VIAL IVP SCH (22:16)
[2016-11-18] MEDS: IPRATROPIUM/ALBUTEROL (0.5MG/3MG) NEB INH SCH (22:38)
[2016-11-19] MEDS: IPRATROPIUM/ALBUTEROL (0.5MG/3MG) NEB INH SCH ×3 (02:12→10:42)
[2016-11-19] MEDS: METHYLPREDNISOLONE PF 125MG/VIAL IVP SCH (04:20)
--- NOTE | 2016-11-19 07:43 | RADIOLOGY REPORT ---
EXAM: PORTABLE CHEST HISTORY: COPD WITH WHEEZING. TECHNIQUE: AP semi-upright portable view of the chest was obtained. Comparison: Two view chest 10/28/16. FINDINGS: The heart size is within normal limits. The lungs again appear somewhat hyperinflated suggesting underlying COPD, however, no definite acute infiltrate is seen. No pleural effusion or pneumothorax evident. IMPRESSION: 1. THE LUNGS APPEAR HYPERINFLATED BEFORE. 2. NO ACUTE INFILTRATE IDENTIFIED. JOB NUMBER: [id number] MTDD
[2016-11-19] MEDS ORDERED: ARNUITY (FLUTICASONE FUROATE) 100MCG INH INH SCH (10:00)
[2016-11-19] MEDS ORDERED: ENOXAPARIN 40 MG/0.4 ML SYR SC SCH (10:00)
[2016-11-19] MEDS ORDERED: AZITHROMYCIN 500 MG TABLET PO SCH (10:00)
[2016-11-19] MEDS: ASPIRIN 81 MG TABEC PO SCH ×2 (10:48→10:51)
--- NOTE | 2016-11-19 13:04 | Discharge Note ---
VTE H&P Assessment - Risk for VTE Risk for VTE: Yes Risk Level: Low Risk Assessment Date: 11/19/16 Risk Assessment Time: 12:59 VTE Orders Placed or Will Be Placed: Yes Discharge Medications - Discharge Medications Prescriptions: Azithromycin 500 mg PO DAILY #7 tablet Prednisone [Prednisone 10Mg] 10 mg PO ASDIR #30 tab Home Medications: Ambulatory Orders Aspirin [Aspirin EC] 81 mg PO DAILY 11/24/15 [Last Taken 1 Day Ago ~09/29/16] Albuterol Sulfate [Ventolin Hfa] 1 - 2 puff IH .EVERY 4-6 HOURS PRN #1 inhaler 11/25/15 [Last Taken 1 Day Ago ~09/29/16] Beclomethasone Dipropionate [Qvar 80Mcg/100 Actuat Inhaler] 2 puff IH BID [Last Taken 1 Day Ago ~09/29/16] Azithromycin 500 mg PO DAILY #7 tablet 11/19/16 [Last Taken Unknown] Prednisone [Prednisone 10Mg] 10 mg PO ASDIR #30 tab 11/19/16 [Last Taken Unknown ] Discharge Note - Date Date of Discharge Note: 11/19/16 Condition: (1) Good Additional Instructions: follow up with Dr. Sen in 7 days fluids increase Forms: Patient Portal Access Activity at Discharge: Increase Activity as Tolerated
[2016-11-19] MEDS ORDERED: METHYLPREDNISOLONE PF 125MG/VIAL IVP SCH (14:00)
--- NOTE | 2016-11-20 07:40 | History and Physical Report ---
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 DATE OF ADMISSION: 11/18/2016 CHIEF COMPLAINT: Wheezing, shortness of breath, cough. HISTORY OF PRESENT ILLNESS: This 66-year-old female presented to the emergency department with difficulty breathing. Started on Saturday night, 2 days prior. Coughing up white sputum. O2 saturation 90% on room air. Wheezing. Evaluated by Dr. Cleary. Stated wheezing for 3 days. History of COPD. No fever. Sputum is clear. No blood or discolored sputum. No current antibiotics or steroids. Diagnosed with COPD acute exacerbation. PAST MEDICAL HISTORY: COPD, tobacco use. She stopped on October 2014. Osteopenia and hypertension. PAST SURGICAL HISTORY: Hysterectomy, cholecystectomy, appendectomy, tubal ligation. MEDICATIONS: 1. QVAR 2 puffs b.i.d. 2. Ventolin inhaler 2 puffs every 4 hours. 3. Aspirin 81 mg a day. ALLERGIES: No known drug allergies. SOCIAL HISTORY: She is a former smoker. She stopped in October 2014. FAMILY HISTORY: Father and mother had cancer. Mother had lung cancer. Father had colon cancer. She denies any alcohol or drug use. REVIEW OF SYSTEMS: HEENT: See Chief Complaint. She denies a sore throat, hearing problems, or swallowing problems. Cardiovascular: No chest pain or palpitations. She is short of breath and wheezing. Respiratory: Short of breath, wheezing, clear sputum. She has a history of COPD. Gastrointestinal: No nausea, vomiting, diarrhea, black stools, or bloody stools. Genitourinary: No dysuria, hematuria, frequency, or burning on urination. Musculoskeletal: She has arthritis in her joints. Neurological: No CVA, paralysis, or paresthesias. PRIMARY SPECIAL EDUCATOR: No lumps in her breasts or abnormal vaginal bleeding. Endocrine: No diabetes or thyroid disease. Integument: No rash, ulcers, change in moles, or yellow skin. PHYSICAL EXAMINATION: VITALS: Height 5 feet 4 inches, weight 169 pounds. Temperature 98.1, pulse 124, blood pressure 124/81, respiratory rate 18, pulse ox 93% on room air. HEENT: Pupils are equal, round, and reactive to light and accommodation. Extraocular muscles are intact. Throat is clear. Nose is clear. Tympanic membranes are ven[place]. NECK: Supple. No jugular venous distention. No hepatojugular reflux. No carotid bruits. Thyroid is smooth. CARDIOVASCULAR: Regular rate and rhythm with a slight sinus tachycardia, especially when walking around. The last set of vitals was obtained just after walking. No clicks, rubs, or gallops. RESPIRATORY: Scant wheezing bilaterally. ABDOMEN: Soft, nontender. No hepatosplenomegaly, no masses, no tenderness. Bowel sounds are active. EXTREMITIES: No pitting edema. No cyanosis, no clubbing. Full range of motion. Peripheral pulses are good. BREASTS: Deferred. GYNECOLOGICAL: Exam deferred. RECTAL: Exam deferred. NEUROLOGIC: Cranial nerves II-XII intact. No gross defects. Sensation normal, strength normal. Deep tendon reflexes equal bilaterally with Babinski negative. IMPRESSION: 1. Acute bronchitis. 2. Acute exacerbation of COPD. 3. Status post hypertension. 4. Status post osteopenia. PLAN: IV Solu-Medrol. IV Rocephin. Azithromycin orally. Lovenox therapy for DVT prevention. MTDD
--- NOTE | 2016-11-21 14:10 | Discharge Summary ---
OBSERVATION PATIENT DATE OF ADMISSION: 11/18/2016 DATE OF DISCHARGE: 11/19/2016 DISCHARGE DIAGNOSES: 1. Acute bronchitis. 2. COPD. 3. Status post hypertension. 4. Status post osteopenia. ATTENDING PHYSICIAN: Rodney Sen DO REASON FOR HOSPITALIZATION: Dyspnea and cough for 3 days. Patient was evaluated in the Emergency Department by Dr. Cleary, admitted to the hospital for IV Solu-Medrol, IV antibiotics of Rocephin, azithromycin, and Lovenox for DVT prophylaxis, and IV fluids. Patient was feeling much better on the next day when I saw the patient. HOSPITAL COURSE: She was much improved. CONDITION ON DISCHARGE: Stable. DISCHARGE INSTRUCTIONS: Follow up with Dr. Sen in 1 week. Azithromycin 500 mg daily for a week. Prednisone 40 mg taper. Continue her home medications of aspirin 81 mg daily, Ventolin 2 puffs every 4 hours, Qvar 2 puffs b.i.d., prednisone taper, and albuterol nebulization 4 times a day. MTDD
== END 2016-11-19 14:00 | disposition home or self-care (01) ==
LOC: ER 16:30 → MEDSURG 21:18
PROVIDERS: ADMIT Emergency Medicine; ATTEND Emergency Medicine
DX: J44.1 Chronic obstructive pulmonary disease with (acute) exacerbation (principal); J20.9 Acute bronchitis, unspecified; J44.0 Chronic obstructive pulmonary disease with (acute) lower respiratory infection; Z87.891 Personal history of nicotine dependence; I10 Essential (primary) hypertension; M85.80 Other specified disorders of bone density and structure, unspecified site
CPT/HCPCS: 93041; 99285 ×2; 94760; 96374; 84484; 80053; 85027; 83880; 71010; 94640 ×4; 94762 ×2; 93005; 93010; G0378 ×2; 99220; J1650; J2930; J7613

== ENCOUNTER 2016-12-07 23:39 | Emergency (ER) | payer MEDICARE, OTHER ==
[2016-12-07] MEDS ORDERED: 0.9 % SODIUM CHLORIDE 1000ML 1,000 ML IV PRN (23:45)
[2016-12-07] MEDS ORDERED: ACETAMINOPHEN 1,000 MG/100 ML BTL IVPB ONE (23:46)
--- NOTE | 2016-12-07 23:52 | Emergency Department Record ---
History of Present Illness - General Chief Complaint: Abdominal Pain Stated Complaint: STOMACH CRAMPS/DIZZY Time Seen by Provider: 12/07/16 23:40 Source: Patient, Family Mode of Arrival: Ambulatory Limitations: No limitations - History of Present Illness Initial Comments: 66 yo female presents with 3-4 days of diarrhea. No vomiting. The last two nights she has developed low abdominal cramps as well. No fevers. She is unsure if there has been any blood in her stool. She was admitted to the hospital on 11/18 for COPD. She is not on home oxygen and states she feels like her breathing is at it's baseline. She has not smoked for about 2 years. Her past surgery history includes hysterectomy, cholecystecomy, appendectomy, and tubal ligation. PCP is Dr Sen. Complaint: Abdominal pain, Other (Diarrhea) -: Days(s) Location: Periumbilical Radiation: None Migration to: Periumbilical Quality: Cramping Consistency: Intermittent Improves With: Nothing Worsens With: Eating Associated Symptoms: Anorexia, Diarrhea - Related Data Previous Rx's Medication Instructions Recorded Albuterol Sulfate [Ventolin Hfa] 1 - 2 puff IH .EVERY 4-6 HOURS PRN 11/25/15 #1 inhaler Dicyclomine HCl [Bentyl] 10 mg PO Q8H #15 cap 12/08/16 Nitrofurantoin Monohyd/M-Cryst 100 mg PO BID #14 capsule 12/08/16 [Macrobid 100 mg Capsule] Allergies Allergy/AdvReac Type Severity Reaction Status Date / Time No Known Drug Allergies Allergy Verified 02/10/16 18:14 Review of Systems Constitutional: Denies: Chills, Fever, Malaise, Weakness Eyes: Denies: Eye discharge, Eye pain, Photophobia, Vision change ENT: Denies: Congestion, Throat pain Respiratory: Denies: Cough, Dyspnea, Hemoptysis, Stridor, Wheezes Cardiovascular: Denies: Chest pain, Palpitations, Syncope Endocrine: Reports: As per HPI, Fatigue Gastrointestinal: Reports: As per HPI, Abdominal pain, Diarrhea Genitourinary: Denies: Dysuria, Urgency Musculoskeletal: Denies: Arthralgia, Back pain, Myalgia, Neck pain Skin: Denies: Bruising, Change in color, Rash Neurological: Denies: Headache, Numbness, Weakness Psychiatric: Denies: Anxiety Hematological/Lymphatic: Denies: Blood Clots, Easy bleeding, Easy bruising, Swollen glands Past Medical History - SOCIAL HISTORY Smoking Status: Former smoker - RESPIRATORY Hx Respiratory Disorders: Yes Hx Bronchitis: Yes Hx COPD: Yes - CARDIOVASCULAR Hx Cardio Disorders: Yes Hx Hypertension: Yes - NEURO Hx Neuro Disorders: No - GI Hx GI Disorders: No - Hx Genitourinary Disorders: No - ENDOCRINE Hx Endocrine Disorders: No - MUSCULOSKELETAL Hx Musculoskeletal Disorders: No - PSYCH Hx Psych Problems: No - HEMATOLOGY/ONCOLOGY Hx Hematology/Oncology Disorders: No Family Medical History Hx Cancer: Father, Mother *Cancer Comment: mother- lung ca, father-colon ca Hx Resp Disorders: Father, Grandparents Physical Exam - General General Appearance: Alert, Oriented x3, Cooperative, No acute distress Limitations: No limitations - Head Head exam: Normal inspection - Eye Eye exam: Normal appearance. negative: Conjunctival injection - ENT ENT exam: Normal exam, Mucous membranes moist Ear exam: Normal external inspection Nasal Exam: Normal inspection Mouth exam: Normal external inspection - Neck Neck exam: Normal inspection, Full ROM. negative: Tenderness - Respiratory Respiratory exam: Decreased breath sounds, Prolonged expiratory (mild), Wheezes (mild) - Cardiovascular Cardiovascular Exam: Regular rate, Normal rhythm, Normal heart sounds Peripheral Pulses: 2+: Radial (R), Radial (L) - GI/Abdominal GI/Abdominal exam: Soft, Tenderness (mild mid to lower abdominal tenderness). negative: Distended, Guarding, Rebound, Rigid - exam: Deferred - Extremities Extremities exam: Normal inspection, Full ROM, Normal capillary refill. negative: Tenderness - Back Back exam: Reports: Normal inspection, Full ROM. Denies: CVA tenderness (R), CVA tenderness (L), Muscle spasm, Rash noted, Tenderness - Neurological Neurological exam: Alert, Normal gait, Oriented X3 - Psychiatric Psychiatric exam: Normal affect, Normal mood. negative: Agitated, Anxious - Skin Skin exam: Dry, Intact, Normal color, Warm Course - Reevaluation(s) Reevaluation #1: 12/08/16 00:31 No acute changes on the CBC, CMP, Lipase or Lactic Acid. 12/08/16 00:35 The patient states her pain is gone. She is 0/10 She has not had diarrhea in the ED yet She did provide a urine sample. 12/08/16 01:14 UA was positive for small LE, 6-10 WBC, few bacteria. No blood. 12/08/16 01:15 12/08/16 01:23 The patient remains asymptomatic No diarrhea at this point No abdominal pain I discussed the option of continued observation or DC and send with an outpatient RX for stool studies. She prefers DC with outpatient stool study prescription We discussed reasons to return to the ED as well as close follow up Medical Decision Making - Lab Data Result diagrams: 12/07/16 23:48 12/07/16 23:48 Disposition Disposition: Discharge Clinical Impression: UTI (urinary tract infection) Diarrhea Qualifiers: Diarrhea type: unspecified type Qualified Code(s): R19.7 - Diarrhea, unspecified Abdominal pain Qualifiers: Abdominal location: unspecified location Qualified Code(s): R10.9 - Unspecified abdominal pain Disposition: Home, Self-Care Condition: (1) Good Instructions: Urinary Tract Infection in Women (ED), Acute Diarrhea (ED), Abdominal Pain (ED) Additional Instructions: Return immediately if you have pain, vomiting, fever If you have any more diarrhea take a sample in the container provided with the prescription to the lab Call Dr Sen on Saturday for close follow up Prescriptions: Dicyclomine HCl [Bentyl] 10 mg PO Q8H #15 cap Nitrofurantoin Monohyd/M-Cryst [Macrobid 100 mg Capsule] 100 mg PO BID #14 capsule Forms: Patient Portal Access Time of Disposition: : Quality - Quality Measures Quality Measures: N/A - Blood Pressure Screening Does Patient Have Any of the Following: No Blood Pressure Classification: Hypertensive Reading Systolic Measurement: 140 Diastolic Measurement: 78 Screening for High Blood Pressure: < Pre-Hypertensive BP, F/U Documented > [ [id number]] Pre-Hypertensive Follow-up Interventions: Referral to alternative/primary care provider.
[2016-12-07 23:58] LABS: BASO % 0.7 % (0-6); EOS % 3.7 % (0-6); GRAN % 49.9 % (47-80); HEMATOCRIT 46.3 % (35.0-47.0); HEMOGLOBIN 15.8 gm/dl (11.6-16.0); LYMPH % 35.3 % (16-45); MEAN CELL VOLUME 87.9 fl (81-97); MEAN CORPUSCULAR HGB CONC 34.1 g/dl (32-36); MEAN PLATELET VOLUME 8.3 fl (7.4-10.4); MONO % 10.4 % (0-9); PLATELET COUNT 268 K/uL (130-400); RED BLOOD COUNT 5.27 M/uL (3.80-5.40); RED CELL DISTRIBUTION WIDTH 14.1 % (11.5-14.5); WHITE BLOOD COUNT W/O DIFF 7.2 K/uL (4.2-12.2)
[2016-12-08 00:12] LABS: ALB/GLOB RATIO 1.9 (1.1-1.8); ALBUMIN 4.4 g/dL (4.0-5.0); ALKALINE PHOSPHATASE 57 U/L (35-104); ALT/SGPT 23 U/L (<33); AST/SGOT 20 U/L (10.0-35.0); BLOOD UREA NITROGEN 11 mg/dL (8-23); CREATININE 0.9 mg/dL (0.5-0.9); EST GLOMERULAR FILTRATION RATE > 60 mL/min; GLUCOSE,RANDOM 115 mg/dL (74-109); LIPASE 29 U/L (13-60); TOTAL PROTEIN 6.7 g/dL (6.6-8.7)
[2016-12-08 01:07] LABS: URINE APPEARANCE CLEAR; URINE BILIRUBIN NEGATIVE (NEGATIVE); URINE BLOOD NEGATIVE (NEGATIVE); URINE COLOR YELLOW; URINE GLUCOSE (UA) NEGATIVE (NEGATIVE); URINE KETONE TRACE (NEGATIVE); URINE LEUKOCYTE ESTERASE SMALL (NEGATIVE); URINE NITRITE NEGATIVE (NEGATIVE); URINE PROTEIN NEGATIVE (NEGATIVE)
[2016-12-08 01:12] LABS: URINE EPITHELIAL CELLS 0 - 2 (FEW); URINE RBC NONE SEEN (NONE SEEN)
[2016-12-08 01:13] LABS: URINE BACTERIA FEW
[2016-12-08] MEDS ORDERED: NITROFURANTOIN MONO 100 MG CAPSULE PO ONE (01:30)
[2016-12-08 14:15] LABS: CRYPTOSPORIDIUM PARVUM ANTIGEN NOT DETECTED (NOT DETECT); GIARDIA LAMBLIA ANTIGEN NOT DETECTED (NOT DETECT); MOLECULAR C DIFF TOXIN SCREEN NOT DETECTED (NOT DETECT); ROTOVIRUS NOT DETECTED (NOT DETECT)
== END 2016-12-08 01:38 | disposition home or self-care (01) ==
LOC: ER 23:39
DX: N39.0 Urinary tract infection, site not specified (principal); R19.7 Diarrhea, unspecified; R10.33 Periumbilical pain; J44.9 Chronic obstructive pulmonary disease, unspecified; I10 Essential (primary) hypertension; Z87.891 Personal history of nicotine dependence
CPT/HCPCS: 80053; 81001; 82272; 83605; 83690; 85025; 87329; 87425; 87493; 89055; 96374; 99284

== ENCOUNTER 2016-12-16 18:21 | Inpatient (IN) | payer MEDICARE, OTHER ==
[2016-12-16] MEDS ORDERED: METHYLPREDNISOLONE PF 125MG/VIAL IVP ONE (19:16)
[2016-12-16] MEDS ORDERED: IPRATROPIUM/ALBUTEROL (0.5MG/3MG) NEB INH ONE (19:16)
--- NOTE | 2016-12-16 19:27 | Emergency Department Record ---
History of Present Illness - General Chief Complaint: Difficulty Breathing Stated Complaint: LISE Time Seen by Provider: 12/16/16 19:14 Source: Patient Mode of Arrival: Ambulatory Limitations: No limitations - History of Present Illness Initial Comments: 66 yo female presents to ED for evaluation of difficulty breathing symptoms that began around 3:00 AM this morning. Patient reports history of COPD, has been using her nebulizer at home x 5 without significant improvement in her symptoms. Patient denies productive cough or fever symptoms. MD Complaint: Shortness of breath Onset/Timin -: Hour(s) Severity: Mild Consistency: Getting worse Improves With: Nothing Worsens With: Exertion Known History Of: COPD Associated Symptoms: Cough Treatments Prior to Arrival: Bronchodilator - Related Data Home Oxygen Therapy: No Home Medications Medication Instructions Recorded Confirmed Last Taken Amlodipine Besylate 5 mg PO DAILY 12/16/16 12/16/16 Unknown Previous Rx's Medication Instructions Recorded Albuterol Sulfate [Ventolin Hfa] 1 - 2 puff IH .EVERY 4-6 HOURS PRN 11/25/15 #1 inhaler Dicyclomine HCl [Bentyl] 10 mg PO Q8H #15 cap 12/08/16 Nitrofurantoin Monohyd/M-Cryst 100 mg PO BID #14 capsule 12/08/16 [Macrobid 100 mg Capsule] Allergies Allergy/AdvReac Type Severity Reaction Status Date / Time No Known Drug Allergies Allergy Verified 12/16/16 20:08 Travel Screening - Travel/Exposure Within Last 30 Days Have you traveled within the last 30 days?: No - Travel/Exposure Within Last Year Have you traveled outside the [place] in the last year?: No - Additonal Travel Details Have you been exposed to anyone with a communicable illness?: No - Travel Symptoms Symptom Screening: None Review of Systems Constitutional: Denies: Chills, Fever, Malaise, Night sweats Eyes: Denies: Eye discharge, Eye pain ENT: Denies: Congestion, Ear pain, Epistaxis Respiratory: Reports: Cough, Dyspnea, Wheezes Cardiovascular: Reports: Dyspnea on exertion. Denies: Chest pain, Palpitations Endocrine: Denies: Fatigue, Heat or cold intolerance Gastrointestinal: Denies: Abdominal pain, Nausea, Vomiting Genitourinary: Denies: Incontinence, Retention Musculoskeletal: Denies: Arthralgia, Back pain, Gout, Joint swelling Skin: Denies: Bruising, Change in color, Change in hair/nails Neurological: Denies: Abnormal gait, Confusion, Headache, Tingling Psychiatric: Denies: Anxiety Hematological/Lymphatic: Denies: Anemia, Blood Clots Past Medical History - SOCIAL HISTORY Smoking Status: Former smoker Alcohol Use: None Drug Use: None - RESPIRATORY Hx Respiratory Disorders: Yes Hx Bronchitis: Yes Hx COPD: Yes - CARDIOVASCULAR Hx Cardio Disorders: Yes Hx Hypertension: Yes - NEURO Hx Neuro Disorders: No - GI Hx GI Disorders: No - Hx Genitourinary Disorders: No - ENDOCRINE Hx Endocrine Disorders: No - MUSCULOSKELETAL Hx Musculoskeletal Disorders: No - PSYCH Hx Psych Problems: No - HEMATOLOGY/ONCOLOGY Hx Hematology/Oncology Disorders: No Family Medical History Any Significant Family History?: No Hx Cancer: Father, Mother *Cancer Comment: mother- lung ca, father-colon ca Hx Resp Disorders: Father, Grandparents Physical Exam - General General Appearance: Alert, Oriented x3, Cooperative, Moderate distress, Other ( pursed breathing on examination) Limitations: No limitations - Head Head exam: Atraumatic, Normocephalic, Normal inspection Head exam detail: negative: Abrasion, Contusion, Palumbo's sign, General tenderness, Hematoma, Laceration - Eye Eye exam: Normal appearance. negative: Conjunctival injection, Periorbital swelling, Periorbital tenderness, Scleral icterus - ENT Ear exam: negative: Auricular hematoma, Auricular trauma Nasal Exam: negative: Active bleeding, Discharge, Dried blood, Foreign body Mouth exam: negative: Drooling, Laceration, Muffled voice, Tongue elevation - Neck Neck exam: Normal inspection. negative: Meningismus, Tenderness - Respiratory Respiratory exam: Decreased breath sounds, Prolonged expiratory, Respiratory distress, Wheezes. negative: Rhonchi, Stridor - Cardiovascular Cardiovascular Exam: Regular rate, Normal rhythm, Normal heart sounds - GI/Abdominal GI/Abdominal exam: Soft. negative: Rebound, Rigid, Tenderness - Rectal Rectal exam: Deferred - exam: Deferred - Extremities Extremities exam: Normal inspection. negative: Calf tenderness, Pedal edema, Tenderness - Back Back exam: Denies: CVA tenderness (R), CVA tenderness (L) - Neurological Neurological exam: Alert, Normal gait, Oriented X3 - Psychiatric Psychiatric exam: Normal affect, Normal mood - Skin Skin exam: Normal color. negative: Abrasion Type of lesion: negative: abrasion Course Vital Signs 12/16/16 19:10 Temperature 97.8 F Pulse Rate 107 H Respiratory 24 Rate Blood Pressure 140/65 Pulse Ox 95 - Reevaluation(s) Reevaluation #1: 12/16/16 19:51 EKG: Sinus tachycardia 106 Normal axis, normal intervals Low voltage No acute ST-T wave changes are present Reevaluation #2: 12/16/16 20:05 Labs reviewed and are grossly unremarkable for an acute process. CXR: Hyperinflation, no acute process Patient reassessed following 2nd albuterol treatment, continues to exhibit pursed breathing. Continuous ordered, and following discussion with the patient , will admit for further evaluation. Medical Decision Making - Lab Data Result diagrams: 12/16/16 19:20 12/16/16 19:20 Disposition Disposition: Admit Clinical Impression: COPD with acute exacerbation Disposition: Still a Patient at [facility] Decision to Admit: Admit from ER Decision to Admit Date: 12/16/16 Decision to Admit Time: 20:32 Condition: (2) Stable Forms: Patient Portal Access Time of Disposition: 20:32 Quality - Quality Measures Quality Measures: N/A - Blood Pressure Screening Does Patient Have Any of the Following: Active Dx of HTN Blood Pressure Classification: Hypertensive Reading Systolic Measurement: 140 Diastolic Measurement: 65 Screening for High Blood Pressure: Patient Exclusion, Hx of HTN [G9744]
[2016-12-16] MEDS ORDERED: 0.9 % SODIUM CHLORIDE 1000ML 1,000 ML IV SCH (19:30)
[2016-12-16 19:31] LABS: HEMATOCRIT 42.9 % (35.0-47.0); HEMOGLOBIN 14.4 gm/dl (11.6-16.0); MEAN CELL VOLUME 87.9 fl (81-97); MEAN CORPUSCULAR HEMOGLOBIN 29.5 pg (27-33); MEAN CORPUSCULAR HGB CONC 33.6 g/dl (32-36); MEAN PLATELET VOLUME 8.5 fl (7.4-10.4); PLATELET COUNT 246 K/uL (130-400); RED BLOOD COUNT 4.88 M/uL (3.80-5.40); RED CELL DISTRIBUTION WIDTH 14.7 % (11.5-14.5); WHITE BLOOD COUNT W/O DIFF 5.2 K/uL (4.2-12.2)
[2016-12-16 19:46] LABS: ALB/GLOB RATIO 1.8 (1.1-1.8); ALKALINE PHOSPHATASE 50 U/L (35-104); ALT/SGPT 23 U/L (<33); AST/SGOT 22 U/L (10.0-35.0); BLOOD UREA NITROGEN 10 mg/dL (8-23); CREATININE 0.8 mg/dL (0.5-0.9); EST GLOMERULAR FILTRATION RATE > 60 mL/min; GLUCOSE,RANDOM 108 mg/dL (74-109); TOTAL PROTEIN 6.2 g/dL (6.6-8.7)
[2016-12-16] MEDS ORDERED: ALBUTEROL SULFATE (0.083%) 2.5 MG/3 ML NEB INH ONE (19:52)
[2016-12-16] MEDS ORDERED: ALBUTEROL SULFATE 0.5% 5 MG/ML BTL 20ML INH SCH (20:30)
[2016-12-16] MEDS ORDERED: ACETAMINOPHEN 500 MG TABLET PO PRN (22:00)
[2016-12-16] MEDS ORDERED: ALBUTEROL SULFATE (0.083%) 2.5 MG/3 ML NEB INH PRN (22:00)
[2016-12-17] MEDS: PROMETHAZINE W/CODEINE 10ML UD PO PRN ×2 (00:10→21:13)
[2016-12-17] MEDS: DICYCLOMINE HCL 10 MG CAPSULE PO SCH ×2 (00:34→07:31)
[2016-12-17] MEDS: NITROFURANTOIN MONO 100 MG CAPSULE PO SCH ×3 (00:35→21:13)
[2016-12-17] MEDS: 0.9 % SODIUM CHLORIDE 1000ML 1,000 ML IV PRN ×2 (00:35→11:10)
[2016-12-17] MEDS: IPRATROPIUM/ALBUTEROL (0.5MG/3MG) NEB INH SCH ×6 (01:00→21:46)
--- NOTE | 2016-12-17 08:26 | RADIOLOGY REPORT ---
EXAM: CHEST, TWO VIEWS HISTORY: DIFFICULTY BREATHING AND COUGH FOR THE PAST DAY. TECHNIQUE: PA and lateral upright views of the chest were obtained. Comparison: 10/28/16. FINDINGS: The heart, mediastinum, and pulmonary vasculature are normal. The lungs are mildly hyperinflated. There are no acute infiltrates or effusions. There is no pneumothorax. The bones appear intact. IMPRESSION: 1. STABLE HYPERINFLATION. 2. NO ACUTE CHEST PATHOLOGY. JOB NUMBER: [id number] [facility]
[2016-12-17] MEDS: METHYLPREDNISOLONE PF 125MG/VIAL IVP SCH ×2 (09:28→18:08)
[2016-12-17] MEDS: ASPIRIN 81 MG TABEC PO SCH (09:29)
[2016-12-17] MEDS: AMLODIPINE BESYLATE 5MG TAB PO SCH (09:29)
[2016-12-17] MEDS: AZITHROMYCIN 500 MG TABLET PO SCH (09:29)
[2016-12-17] MEDS ORDERED: DICYCLOMINE HCL 10 MG CAPSULE PO PRN (09:30)
[2016-12-17] MEDS ORDERED: ARNUITY (FLUTICASONE FUROATE) 100MCG INH INH SCH (10:00)
[2016-12-17] MEDS ORDERED: METHYLPREDNISOLONE PF 125MG/VIAL IVP SCH (10:00)
[2016-12-17] MEDS: CEFTRIAXONE SODIUM 1 GM in 0.9 % SODIUM CHLORIDE 100ML 100 ML IVPB SCH (14:08)
[2016-12-18] MEDS: METHYLPREDNISOLONE PF 125MG/VIAL IVP SCH (03:10)
[2016-12-18] MEDS: IPRATROPIUM/ALBUTEROL (0.5MG/3MG) NEB INH SCH ×6 (05:57→22:02)
[2016-12-18] MEDS: PROMETHAZINE W/CODEINE 10ML UD PO PRN (06:08)
[2016-12-18] MEDS: PREDNISONE 20 MG TAB PO SCH ×2 (08:10→17:19)
[2016-12-18] MEDS: ASPIRIN 81 MG TABEC PO SCH (09:11)
[2016-12-18] MEDS: AZITHROMYCIN 500 MG TABLET PO SCH (09:11)
[2016-12-18] MEDS: AMLODIPINE BESYLATE 5MG TAB PO SCH (09:11)
[2016-12-18] MEDS: BREO (FLUTICASONE/VILANTEROL) 200MCG/25MCG INHALER INH SCH ×2 (11:46→12:53)
[2016-12-18] MEDS: CEFTRIAXONE SODIUM 1 GM in 0.9 % SODIUM CHLORIDE 100ML 100 ML IVPB SCH (14:01)
[2016-12-19] MEDS: IPRATROPIUM/ALBUTEROL (0.5MG/3MG) NEB INH SCH ×2 (05:54→10:21)
[2016-12-19] MEDS: PREDNISONE 20 MG TAB PO SCH (07:39)
--- NOTE | 2016-12-19 08:11 | History and Physical Report ---
DATE OF EVALUATION: 12/17/2016 at 1:30 p.m. DATE OF ADMISSION: 12/17/2016 CHIEF COMPLAINT: Dyspnea, which started at 3 a.m. on the day of admission, approximately 16 hours prior to coming to the Emergency Department. HISTORY OF THE PRESENT ILLNESS: She had 5 nebulized treatments at home without much improvement. Denies a fever or cough, but was wheezing with exertion and at rest. EKG showing no acute ST/T wave changes. Chest x-ray was hyperinflated. Labs are essentially normal. She was seen in the Emergency Department by Dr. Nayak and admitted to the hospital for exacerbation of COPD. PAST MEDICAL HISTORY: COPD, tobacco use (she stopped in October 2014), osteopenia, and hypertension. PAST SURGICAL HISTORY: Hysterectomy, cholecystectomy, appendectomy, and tubal ligation. MEDICATIONS ON ADMISSION: Ventolin inhaler 2 puffs every 4 hours, aspirin 81 mg , Qvar 2 puffs b.i.d., amlodipine 5 mg daily, Bentyl p.r.n. I am not sure if she is on nitrofurantoin at this time as I think that was an older prescription for urinary tract infection. ALLERGIES: No known drug allergies. SOCIAL HISTORY: She is a former smoker. She stopped in October 2014. FAMILY HISTORY: Father and mother had cancer. Mother had lung cancer. Father had colon cancer. She denies any alcohol or drug use. REVIEW OF SYSTEMS: See Chief Complaint. She denies any sore throat, hearing problems or swallowing problems. She denies congestion. Cardiovascular: No chest pain or palpitations. She is short of breath with exertion and at rest. Respiratory: She is wheezing. She has had 5 breathing treatments. She has a history of COPD. Gastrointestinal: No nausea, vomiting, diarrhea, black stools , or bloody stools. Genitourinary: No dysuria, hematuria, frequency, or burning on urination. Musculoskeletal: She has arthritis in the joints. Neurologic: No CVA, paralysis, or paresthesias. MIGRANT LEADER: No lumps in her breasts or abnormal vaginal bleeding. Endocrine: No diabetes or thyroid disease. Integument: No rash, ulcers, changes in moles, or yellow skin. PHYSICAL EXAMINATION: VITAL SIGNS: Height is 5'5". Weight is 167 pounds. Temperature is 97.7. Pulse is 116. Blood pressure 102/73. Pulse ox is 94% on room air. Respiratory rate is 18. HEENT: Pupils equal, round, and reactive to light and accommodation. Extraocular muscles intact. Throat is clear. Nose is clear. Tympanic membranes venegas. NECK: Supple. No jugular venous distention. No hepatojugular reflux. No carotid bruits. Thyroid is smooth. CARDIOVASCULAR: Regular rate and rhythm without murmurs, clicks, rubs, or gallops. RESPIRATORY: Decreased breath sounds. Scant wheezing bilaterally. She seems short of breath when she is sitting there talking to me. ABDOMEN: Soft, nontender, no hepatosplenomegaly. No masses or tenderness. Bowel sounds active. No bruits. EXTREMITIES: No pitting edema. No cyanosis or clubbing. Full range of motion. Peripheral pulses good. BREASTS: Deferred. GYNECOLOGIC: Deferred. RECTAL: Deferred. NEUROLOGIC: Cranial nerves II-XII intact. No gross deficits. Sensation normal. Strength normal. Deep tendon reflexes equal bilaterally. Babinski is negative. MENTAL STATUS: Alert and oriented x3. IMPRESSION: 1. Acute bronchitis. 2. Acute exacerbation of COPD. 3. Status post hypertension. 4. Status post osteopenia. PLAN: Solu-Medrol 60 mg every 8 hours. Start Rocephin IV 1 gram daily and azithromycin 500 mg daily. Lovenox therapy for DVT prophylaxis. Addendum This is an inpatient certification. Admitted to inpatient care based on my medical assessment after consideration of patient risks factors, age, comorbidities, and patient's presenting symptoms. I expect that this patient will remain in the hospital greater than or equal to 2 midnights and that the services warrant inpatient care because of her respiratory status and her wheezing. Estimated length of stay 3 days. The patient may reasonably expect to be discharged or transferred to a hospital within 96 hours after admission to [facility]. Services needed: IV Solu-Medrol, oxygen therapy, and IV antibiotics. I certify that my determination is in accordance with the understanding of Medicare requirements for reasonable and necessary inpatient services. JANEL
[2016-12-19] MEDS: AZITHROMYCIN 500 MG TABLET PO SCH (09:02)
[2016-12-19] MEDS: AMLODIPINE BESYLATE 5MG TAB PO SCH (09:02)
[2016-12-19] MEDS: ASPIRIN 81 MG TABEC PO SCH (09:02)
[2016-12-19] MEDS: BREO (FLUTICASONE/VILANTEROL) 200MCG/25MCG INHALER INH SCH (10:21)
--- NOTE | 2016-12-19 11:33 | Discharge Note ---
VTE H&P Assessment - Risk for VTE Risk for VTE: Yes Risk Level: Very Low Risk Assessment Date: 12/17/16 Risk Assessment Time: 08:00 VTE Orders Placed or Will Be Placed: No VTE Reason for No Prophylaxis: Not Indicated Discharge Medications - Discharge Medications Prescriptions: Azithromycin [Zithromax] 500 mg PO DAILY #7 tab Budesonide/Formoterol Fumarate [Symbicort 160-4.5 Mcg Inhaler] 2 puff IH BID #1 hfa.aer.ad Ipratropium/Albuterol [Duoneb] 3 ml INH RESP.Q4H.WA #120 ampul.neb Prednisone [Prednisone 20Mg] 20 mg PO BIDWM #14 tab Promethazine HCl/Codeine [Phenergan W/Codeine] 10 ml PO Q6H PRN #180 ml PRN Reason: Cough Home Medications: Ambulatory Orders Aspirin [Aspirin EC] 81 mg PO DAILY 11/24/15 [Last Taken 1 Day Ago ~09/29/16] Albuterol Sulfate [Ventolin Hfa] 1 - 2 puff IH .EVERY 4-6 HOURS PRN #1 inhaler 11/25/15 [Last Taken 1 Day Ago ~09/29/16] Dicyclomine HCl [Bentyl] 10 mg PO Q8H #15 cap 12/08/16 [Last Taken Unknown] Amlodipine Besylate 5 mg PO DAILY 12/16/16 [Last Taken Unknown] Acetaminophen [Tylenol 500Mg Tab] 1,000 mg PO Q6H PRN tablet 12/19/16 [Last Taken Unknown] Aspirin Enteric-Coated [Ecotrin (EC)] 81 mg PO DAILY tabec 12/19/16 [Last Taken Unknown] Azithromycin [Zithromax] 500 mg PO DAILY #7 tab 12/19/16 [Last Taken Unknown] Budesonide/Formoterol Fumarate [Symbicort 160-4.5 Mcg Inhaler] 2 puff IH BID #1 hfa.aer.ad 12/19/16 [Last Taken Unknown] Ipratropium/Albuterol [Duoneb] 3 ml IH Q4HR #0 12/19/16 [Last Taken Unknown] Ipratropium/Albuterol [Duoneb] 3 ml INH RESP.Q4H.WA #120 ampul.neb 12/19/16 [ Last Taken Unknown] Prednisone [Prednisone 20Mg] 20 mg PO BIDWM #14 tab 12/19/16 [Last Taken Unknown ] Promethazine HCl/Codeine [Phenergan W/Codeine] 10 ml PO Q6H PRN #180 ml [Last Taken Unknown] Discharge Note - Date Date of Discharge Note: 12/19/16 Disposition: Home, Self-Care Condition: (2) Stable Additional Instructions: follow up with Dr. Sen on Dec 24Saturday drink plenty of fluids prednisone 20 mg twice a day zithromycin 500 mg daily start symbicort inhaler 2 puffs twice aday continue duoneb every 4 fours while awake use ventolin inhaler PRN rescue in between if necessary Forms: Patient Portal Access Activity at Discharge: Increase Activity as Tolerated Diet at Discharge: Regular Diet
--- NOTE | 2016-12-19 12:50 | Discharge Summary ---
DATE OF DISCHARGE: 12/19/2016 DISCHARGE DIAGNOSES: 1. Acute bronchitis. 2. Acute exacerbation of COPD. 3. Status post hypertension. 4. Status post osteopenia. ATTENDING PHYSICIAN: Rodney Sen DO REASON FOR HOSPITALIZATION: Dyspnea. HISTORY OF PRESENT ILLNESS: She used 5 nebulizer treatments at home without much improvement. Denies fever or cough. She had wheezing and shortness of breath with exertion. EKG showed no acute ST-T-wave changes. Chest x-ray showed hyperinflation. She came to the emergency department and was evaluated by Dr. Nayak, admitted to the hospital for evaluation of COPD. SIGNIFICANT FINDINGS: As stated, chest x-ray with hyperinflation, EKG with no acute changes. Laboratory findings of WBC 5200, hemoglobin 14.4. Electrolytes normal. Potassium 3.8, BUN 10, creatinine 0.8. Liver enzymes are normal. THERAPY PROVIDED: The patient was started on Solu-Medrol and IV antibiotics, Rocephin IV and azithromycin orally. The patient improved and was feeling much better on the day of discharge. CONDITION ON DISCHARGE: Much improved; however, I talked to her about using the expensive inhaler. She stopped using the QVAR because it was too expensive. We are going to try Symbicort and see if her insurance will pay it at a less expensive cost. We will continue to use the DuoNeb and Ventolin inhalation for rescue. DISCHARGE INSTRUCTIONS: Follow up with Dr. Sen on 12/24/16. Azithromycin 500 mg daily for 7 days. Prednisone 20 mg b.i.d. DuoNeb q.4 h. while awake. Ventolin inhaler for rescue p.r.n. in between. Phenergan with codeine cough syrup 10 mL q.4 h. p.r.n. Symbicort 160/4.5 two puffs b.i.d. MTDD
== END 2016-12-19 12:22 | disposition home or self-care (01) | DRG 192 ==
LOC: ER 18:21 → MEDSURG 21:28 → OBSVTOIN 12-17 15:25
PROVIDERS: ADMIT Internal Medicine; ATTEND Internal Medicine
DX: J44.1 Chronic obstructive pulmonary disease with (acute) exacerbation (principal); J20.9 Acute bronchitis, unspecified; J44.0 Chronic obstructive pulmonary disease with (acute) lower respiratory infection; I10 Essential (primary) hypertension; M85.80 Other specified disorders of bone density and structure, unspecified site; Z87.891 Personal history of nicotine dependence
CPT/HCPCS: 71020; 80053; 85027; 93005; 93010; 94640; 94644; 94760; 94761; 96374; 99223; 99233; 99285; J2930; J7030; J7512; J7613

== ENCOUNTER 2017-01-19 19:54 | Emergency (ER) | payer MEDICARE, OTHER ==
[2017-01-19] MEDS ORDERED: NITROGLYCERIN 0.4MG SL TABLET #25 BTL SL ONE (20:21)
--- NOTE | 2017-01-19 20:27 | Emergency Department Record ---
History of Present Illness - General Chief Complaint: Rapid heartbeat Stated Complaint: RAPIDS HEART RATE Time Seen by Provider: 01/19/17 20:21 Source: Patient, Family () - History of Present Illness Initial Comments: The patient was at home resting in front of her computer around 7:15 p.m. when she developed sudden onset upper anterior chest heaviness with a pain in her left shoulder blade posteriorly. This is 8/10 severity, has not radiated down her arm, into her neck, jaw or abdomen. She has COPD which she states is at it' s baseline. She immediately took 2 apsirin but the pain has not resolved and remains at an 8/10. She states it is almost a palpitation/heaviness which is unlike her prior visits. She denies any history of IL, PE, DVT, CVA. She has no f,c,n,v,d,ap, st, cough, leg/calf pain or tenderness. - Related Data Home Medications Medication Instructions Recorded Confirmed Last Taken Budesonide/Formoterol Fumarate 1 puff PO DAILY 01/19/17 01/19/17 Unknown [Symbicort 160-4.5 Mcg Inhaler] Previous Rx's Medication Instructions Recorded Albuterol Sulfate [Ventolin Hfa] 1 - 2 puff IH .EVERY 4-6 HOURS PRN 11/25/15 #1 inhaler Dicyclomine HCl [Bentyl] 10 mg PO Q8H #15 cap 12/08/16 Acetaminophen [Tylenol 500Mg Tab] 1,000 mg PO Q6H PRN tablet 12/19/16 Aspirin Enteric-Coated [Ecotrin 81 mg PO DAILY tabec 12/19/16 (EC)] Budesonide/Formoterol Fumarate 2 puff IH BID #1 hfa.aer.ad 12/19/16 [Symbicort 160-4.5 Mcg Inhaler] Ipratropium/Albuterol [Duoneb] 3 ml IH Q4HR #0 12/19/16 Ipratropium/Albuterol [Duoneb] 3 ml INH RESP.Q4H.WA #120 ampul.neb 12/19/16 Promethazine HCl/Codeine 10 ml PO Q6H PRN #180 ml 12/19/16 [Phenergan W/Codeine] Allergies Allergy/AdvReac Type Severity Reaction Status Date / Time No Known Drug Allergies Allergy Verified 12/16/16 20:08 Review of Systems Reviewed: No additional complaints except as noted below Constitutional: Reports: As per HPI. Denies: Chills, Fever, Malaise, Night sweats, Weakness, Weight change Eyes: Reports: As per HPI. Denies: Eye discharge, Eye pain, Photophobia, Vision change ENT: Reports: As per HPI. Denies: Congestion, Dental pain, Ear pain, Epistaxis , Hearing loss, Throat pain Respiratory: Reports: As per HPI. Denies: Cough, Dyspnea, Hemoptysis, Stridor, Wheezes Cardiovascular: Reports: As per HPI. Denies: Arrhythmia, Chest pain, Dyspnea on exertion, Edema, Murmurs, Orthopnea, Palpitations, Paroxysmal nocturnal dyspnea, Rheumatic Fever, Syncope Endocrine: Reports: As per HPI. Denies: Fatigue, Heat or cold intolerance, Polydipsia, Polyuria Gastrointestinal: Reports: As per HPI. Denies: Abdominal pain, Constipation, Diarrhea, Hematemesis, Hematochezia, Melena, Nausea, Vomiting Genitourinary: Reports: As per HPI. Denies: Abnormal menses, Discharge, Dyspareunia, Dysuria, Frequency, Hematuria, Incontinence, Retention, Urgency Musculoskeletal: Reports: As per HPI. Denies: Arthralgia, Back pain, Gout, Joint swelling, Myalgia, Neck pain Skin: Reports: As per HPI. Denies: Bruising, Change in color, Change in hair/ nails, Lesions, Pruritus, Rash Neurological: Reports: As per HPI. Denies: Abnormal gait, Confusion, Headache, Numbness, Paresthesias, Seizure, Tingling, Tremors, Vertigo, Weakness Psychiatric: Reports: As per HPI. Denies: Anxiety, Auditory hallucinations, Depression, Homicidal thoughts, Suicidal thoughts, Visual hallucinations Hematological/Lymphatic: Reports: As per HPI. Denies: Anemia, Blood Clots, Easy bleeding, Easy bruising, Swollen glands Past Medical History - SOCIAL HISTORY Smoking Status: Former smoker Drug Use: None - RESPIRATORY Hx Respiratory Disorders: Yes Hx Bronchitis: Yes Hx COPD: Yes - CARDIOVASCULAR Hx Cardio Disorders: Yes Hx Hypertension: Yes - NEURO Hx Neuro Disorders: No - GI Hx GI Disorders: No - Hx Genitourinary Disorders: No - ENDOCRINE Hx Endocrine Disorders: No - MUSCULOSKELETAL Hx Musculoskeletal Disorders: No - PSYCH Hx Psych Problems: No - HEMATOLOGY/ONCOLOGY Hx Hematology/Oncology Disorders: No Family Medical History Hx Cancer: Father, Mother *Cancer Comment: mother- lung ca, father-colon ca Hx Resp Disorders: Father, Grandparents Physical Exam - General General Appearance: Alert, Oriented x3, Cooperative, Anxious (mildly) - Head Head exam: Normal inspection - Eye Eye exam: Normal appearance, PERRL Pupils: Normal accommodation - ENT ENT exam: Normal exam, Mucous membranes moist, Normal external ear exam, Normal orophraynx, TM's normal bilaterally Ear exam: Normal external inspection. negative: External canal tenderness Nasal Exam: Normal inspection. negative: Discharge, Sinus tenderness Mouth exam: Normal external inspection, Tongue normal Teeth exam: Normal inspection. negative: Dental caries Throat exam: Normal inspection. negative: Tonsillar erythema, Tonsillar exudate - Neck Neck exam: Normal inspection, Full ROM. negative: Tenderness - Respiratory Respiratory exam: Prolonged expiratory. negative: Accessory muscle use, Chest wall tenderness, Rales, Respiratory distress, Rhonchi, Stridor, Wheezes - Cardiovascular Cardiovascular Exam: Regular rate, Normal rhythm, Normal heart sounds - GI/Abdominal GI/Abdominal exam: Soft, Normal bowel sounds. negative: Tenderness - Rectal Rectal exam: Deferred - exam: Deferred - Extremities Extremities exam: Normal inspection, Full ROM, Normal capillary refill. negative: Calf tenderness, Pedal edema, Tenderness - Back Back exam: Reports: Normal inspection, Full ROM. Denies: Muscle spasm, Rash noted, Tenderness - Neurological Neurological exam: Alert, CN II-XII intact, Normal gait, Oriented X3, Reflexes normal. negative: Motor sensory deficit - Psychiatric Psychiatric exam: Normal affect, Normal mood - Skin Skin exam: Dry, Intact, Normal color, Warm Course - Reevaluation(s) Reevaluation #1: Nitro times one did not change the patient's symptoms. She states that less than a year ago she came here with the same symptoms and was transferred to another facility for a cardiac workup. She states she was told she had no heart disease and did not need follow up. 01/19/17 21:38 Reevaluation #2: Patient to have 4 hour repeat troponin, she understands and agrees. 01/19/17 21:42 Reevaluation #3: Repeat troponin at 4 hours is unchanged. Will discharge patient home. The patient states the ativan she was given caused her pain to go mostly away, but return only briefly or occasionally. She is ready for discharge home. 01/20/17 00:31 Medical Decision Making - Management Options MDM Management: No Additional Work-up Planned - Data Complexity MDM Data: Labs Ordered and/or Reviewed, X-Ray Ordered and/or Reviewed (CXR two view: ), EKG Ordered and/or Reviewed - Lab Data Result diagrams: 01/19/17 20:15 - EKG Data -: EKG Interpreted by Me EKG: No Acute Changes (low voltage precordial leads as before, no ST elevation) , Unchanged From Previous Disposition Disposition: Discharge Clinical Impression: Anxiety Disposition: Home, Self-Care Condition: (1) Good Instructions: Heart Palpitations (ED), Generalized Anxiety Disorder (ED) Additional Instructions: Dispense one ativan 0.5 mg tablet for home to take only if needed. Call Dr. West's office Saturday (tomorrow) for recheck appointment. Continue present medications. Forms: Patient Portal Access Quality - Quality Measures Quality Measures: N/A - Blood Pressure Screening Does Patient Have Any of the Following: No, Active Dx of HTN Blood Pressure Classification: Pre-Hypertensive BP Reading Systolic Measurement: 126 Diastolic Measurement: 84 Screening for High Blood Pressure: Patient Exclusion, Hx of HTN [G9744]
[2017-01-19 20:31] LABS: BASO % 0.5 % (0-6); GRAN % 47.5 % (47-80); HEMATOCRIT 44.7 % (35.0-47.0); HEMOGLOBIN 14.8 gm/dl (11.6-16.0); LYMPH % 39.2 % (16-45); MEAN CELL VOLUME 87.8 fl (81-97); MEAN CORPUSCULAR HEMOGLOBIN 29.1 pg (27-33); MEAN CORPUSCULAR HGB CONC 33.1 g/dl (32-36); MEAN PLATELET VOLUME 8.5 fl (7.4-10.4); MONO % 9.8 % (0-9); PLATELET COUNT 303 K/uL (130-400); RED BLOOD COUNT 5.09 M/uL (3.80-5.40); RED CELL DISTRIBUTION WIDTH 14.1 % (11.5-14.5); WHITE BLOOD COUNT W/O DIFF 6.4 K/uL (4.2-12.2)
[2017-01-19 20:54] LABS: THYROID STIMULATING HORMONE 1.18 uIU/mL (0.270-4.20)
[2017-01-19] MEDS ORDERED: LORAZEPAM 2 MG/ML VIAL IV ONE (21:38)
--- NOTE | 2017-01-19 23:55 | RADIOLOGY REPORT ---
EXAM: CHEST 2 VIEWS HISTORY: CHEST PAIN. TECHNIQUE: Upright PA and lateral views of the chest. COMPARISON: Two-view chest radiographic examination dated 12/16/16. FINDINGS: The heart is not enlarged and the pulmonary vasculature is nondilated. Emphysema is again noted in the upper lungs with the lungs hyperinflated. No new lung consolidation, costophrenic angle blunting, or pneumothorax is seen. Minor linear scarring vs. atelectasis is questioned in the retrocardiac left lung base. The posterior margin of the left hemidiaphragm on the lateral view appears somewhat ill-defined and minimal airspace disease at this level cannot be excluded. This is likely atelectasis with early infiltrate less likely. The lungs and pleural spaces are otherwise clear. There are degenerative changes of the visualized spine and shoulder girdles. IMPRESSION: 1. BILATERAL EMPHYSEMA REDEMONSTRATED. 2. POSSIBLE NEW LINEAR ATELECTASIS VS. SCARRING IN THE RETROCARDIAC LEFT LUNG BASE. ON THE LATERAL VIEW, THE POSTERIOR ASPECT OF THE LEFT HEMIDIAPHRAGM APPEARS SLIGHTLY ILL-DEFINED RAISING THE POSSIBILITY OF MINIMAL ATELECTASIS OR LESS LIKELY INFILTRATE. JOB NUMBER: [id number] [facility]
[2017-01-20] MEDS ORDERED: LORAZEPAM 0.5 MG TABLET PO ONE (00:39)
== END 2017-01-20 00:45 | disposition home or self-care (01) ==
LOC: ER 19:54
DX: R07.89 Other chest pain (principal); M25.512 Pain in left shoulder; F41.9 Anxiety disorder, unspecified; I10 Essential (primary) hypertension; F17.210 Nicotine dependence, cigarettes, uncomplicated
CPT/HCPCS: 71020; 84443; 84484; 85025; 85379; 93005; 93010; 96374; 99284

== ENCOUNTER 2017-03-11 16:50 | Emergency (ER) | payer MEDICARE, OTHER ==
--- NOTE | 2017-03-11 17:14 | Emergency Department Record ---
History of Present Illness - General Chief Complaint: Dizziness Stated Complaint: DIZINESS,PAIN RT SIDE OF NECK,CHEST FEELS FUNNY Time Seen by Provider: 03/11/17 17:10 Source: Patient Mode of Arrival: Ambulatory - History of Present Illness Initial Comments: Patient states she feels like her heart is beating strong and she has some SOB like her previous anxiety episodes. these began while she was at her computer. She also has fleeting shoots of pains in her right neck, then her back which lasted only seconds and now are gone without recurring. Last time she was like this she was told it was anxiety. She denies AR<PE, DVT, CVA, DM, is a nonsmoker but has COPD using inhalers. Onset/Timin -: Minutes(s) Description: Lightheadedness History of Same: Yes History of Trauma: No Severity: Mild Improves With: Nothing Worsens With: Nothing Associated Symptoms: Other - Jake Coma Scale Eye Response: (4) Open spontaneously Motor Response: (6) Obeys commands Verbal Response: (5) Oriented Jake Total: 15 - Related Data Home Medications Medication Instructions Recorded Confirmed Last Taken Sertraline HCl [Zoloft] 25 mg PO DAILY 03/11/17 03/11/17 03/11/17 Previous Rx's Medication Instructions Recorded Albuterol Sulfate [Ventolin Hfa] 1 - 2 puff IH .EVERY 4-6 HOURS PRN 11/25/15 #1 inhaler Aspirin Enteric-Coated [Ecotrin 81 mg PO DAILY tabec 12/19/16 (EC)] Budesonide/Formoterol Fumarate 2 puff IH BID #1 hfa.aer.ad 12/19/16 [Symbicort 160-4.5 Mcg Inhaler] Ipratropium/Albuterol [Duoneb] 3 ml IH Q4HR #0 12/19/16 Allergies Allergy/AdvReac Type Severity Reaction Status Date / Time No Known Drug Allergies Allergy Verified 03/11/17 17:11 Travel Screening - Travel/Exposure Within Last 30 Days Have you traveled within the last 30 days?: No - Travel/Exposure Within Last Year Have you traveled outside the [place] in the last year?: No - Additonal Travel Details Have you been exposed to anyone with a communicable illness?: No - Travel Symptoms Symptom Screening: None Review of Systems Reviewed: No additional complaints except as noted below Constitutional: Reports: As per HPI. Denies: Chills, Fever, Malaise, Night sweats, Weakness, Weight change Eyes: Reports: As per HPI. Denies: Eye discharge, Eye pain, Photophobia, Vision change ENT: Reports: As per HPI. Denies: Congestion, Dental pain, Ear pain, Epistaxis , Hearing loss, Throat pain Respiratory: Reports: As per HPI. Denies: Cough, Dyspnea, Hemoptysis, Stridor, Wheezes Cardiovascular: Reports: As per HPI. Denies: Arrhythmia, Chest pain, Dyspnea on exertion, Edema, Murmurs, Orthopnea, Palpitations, Paroxysmal nocturnal dyspnea, Rheumatic Fever, Syncope Endocrine: Reports: As per HPI. Denies: Fatigue, Heat or cold intolerance, Polydipsia, Polyuria Gastrointestinal: Reports: As per HPI. Denies: Abdominal pain, Constipation, Diarrhea, Hematemesis, Hematochezia, Melena, Nausea, Vomiting Genitourinary: Reports: As per HPI. Denies: Abnormal menses, Discharge, Dyspareunia, Dysuria, Frequency, Hematuria, Incontinence, Retention, Urgency Musculoskeletal: Reports: As per HPI. Denies: Arthralgia, Back pain, Gout, Joint swelling, Myalgia, Neck pain Skin: Reports: As per HPI. Denies: Bruising, Change in color, Change in hair/ nails, Lesions, Pruritus, Rash Neurological: Reports: As per HPI. Denies: Abnormal gait, Confusion, Headache, Numbness, Paresthesias, Seizure, Tingling, Tremors, Vertigo, Weakness Psychiatric: Reports: As per HPI. Denies: Anxiety, Auditory hallucinations, Depression, Homicidal thoughts, Suicidal thoughts, Visual hallucinations Hematological/Lymphatic: Reports: As per HPI. Denies: Anemia, Blood Clots, Easy bleeding, Easy bruising, Swollen glands Past Medical History - SOCIAL HISTORY Smoking Status: Former smoker Alcohol Use: None Drug Use: None - RESPIRATORY Hx Respiratory Disorders: Yes Hx Bronchitis: Yes Hx COPD: Yes - CARDIOVASCULAR Hx Cardio Disorders: Yes Hx Hypertension: Yes - NEURO Hx Neuro Disorders: No - GI Hx GI Disorders: No - Hx Genitourinary Disorders: No - ENDOCRINE Hx Endocrine Disorders: No - MUSCULOSKELETAL Hx Musculoskeletal Disorders: No - PSYCH Hx Psych Problems: No - HEMATOLOGY/ONCOLOGY Hx Hematology/Oncology Disorders: No Family Medical History Any Significant Family History?: No Hx Cancer: Father, Mother *Cancer Comment: mother- lung ca, father-colon ca Hx Resp Disorders: Father, Grandparents Physical Exam - General General Appearance: Alert, Oriented x3, Cooperative, Mild distress, Anxious - Head Head exam: Normal inspection - Eye Eye exam: Normal appearance, PERRL Pupils: Normal accommodation - ENT ENT exam: Normal exam, Mucous membranes moist, Normal external ear exam, Normal orophraynx, TM's normal bilaterally Ear exam: Normal external inspection. negative: External canal tenderness Nasal Exam: Normal inspection. negative: Discharge, Sinus tenderness Mouth exam: Normal external inspection, Tongue normal Teeth exam: Normal inspection. negative: Dental caries Throat exam: Normal inspection. negative: Tonsillar erythema, Tonsillar exudate - Neck Neck exam: Normal inspection, Full ROM. negative: Tenderness - Respiratory Respiratory exam: Decreased breath sounds, Prolonged expiratory, Other ( tightness on respirations). negative: Accessory muscle use, Chest wall tenderness, Rales, Respiratory distress, Rhonchi, Stridor, Wheezes - Cardiovascular Cardiovascular Exam: Regular rate, Normal rhythm, Normal heart sounds - GI/Abdominal GI/Abdominal exam: Soft, Normal bowel sounds. negative: Tenderness - Rectal Rectal exam: Deferred - exam: Deferred - Extremities Extremities exam: Normal inspection, Full ROM, Normal capillary refill. negative: Calf tenderness, Pedal edema, Tenderness - Back Back exam: Reports: Normal inspection, Full ROM. Denies: CVA tenderness (R), CVA tenderness (L), Muscle spasm, Rash noted, Tenderness - Neurological Neurological exam: Alert, CN II-XII intact, Normal gait, Oriented X3, Reflexes normal. negative: Motor sensory deficit - Psychiatric Psychiatric exam: Anxious (mildly), Normal mood - Skin Skin exam: Dry, Intact, Normal color, Warm Course Vital Signs 03/11/17 16:54 Temperature 97.7 F Pulse Rate 92 H Respiratory 24 Rate Blood Pressure 126/100 Pulse Ox 91 L - Reevaluation(s) Reevaluation #1: The patient states she is much better and feels more relaxed. The nebulizer helped loosen her breathing and the ativan has resolved her anxiety. Her biox is not 97% RA. All results discussed, normal CXR and labs. She has an appointment with Dr. Chance in 2 days and will follow up there as previously arranged. 03/11/17 18:40 03/11/17 18:52 Reevaluation #2: Patient has not urinated all day, and not during this Ed visit. Lung sounds are clear after 500 NS. Will repeat bolus prior to DC home. 03/11/17 18:46 Medical Decision Making - Management Options MDM Management: No Additional Work-up Planned - Data Complexity MDM Data: Labs Ordered and/or Reviewed, X-Ray Ordered and/or Reviewed (CXR Neg for acute abnormality), EKG Ordered and/or Reviewed - Lab Data Result diagrams: 03/11/17 17:40 03/11/17 17:40 - EKG Data -: EKG Interpreted by Me EKG: No Acute Changes (NSR, lower voltage, poor R wave progression, no acute abnormality, unchanged from prior of 01-19-17), Unchanged From Previous Disposition Disposition: Discharge Clinical Impression: Anxiety, COPD with acute exacerbation Disposition: Home, Self-Care Condition: (2) Stable Instructions: Generalized Anxiety Disorder (ED) Additional Instructions: Home with . Continue present meds. Continue nebulizers as directed. Follow with PCP Dr. Chance in 2 days as previously arranged. Quality - Quality Measures Quality Measures: N/A - Blood Pressure Screening Does Patient Have Any of the Following: No Blood Pressure Classification: Hypertensive Reading Systolic Measurement: 126 Diastolic Measurement: 100 Screening for High Blood Pressure: < Pre-Hypertensive BP, F/U Documented > [ G8950] Pre-Hypertensive Follow-up Interventions: Follow-up with rescreen every year.
[2017-03-11] MEDS ORDERED: IPRATROPIUM/ALBUTEROL (0.5MG/3MG) NEB INH ONE (17:26)
[2017-03-11] MEDS ORDERED: LORAZEPAM 2 MG/ML VIAL IV ONE (17:26)
[2017-03-11] MEDS ORDERED: 0.9 % SODIUM CHLORIDE 500ML 500 ML IV SCH ×2 (17:45→18:45)
[2017-03-11 17:49] LABS: BASO % 0.8 % (0-6); EOS % 8.9 % (0-6); GRAN % 44.8 % (47-80); HEMOGLOBIN 14.8 gm/dl (11.6-16.0); LYMPH % 30.7 % (16-45); MEAN CELL VOLUME 86.9 fl (81-97); MEAN CORPUSCULAR HEMOGLOBIN 29.9 pg (27-33); MEAN CORPUSCULAR HGB CONC 34.4 g/dl (32-36); MEAN PLATELET VOLUME 8.4 fl (7.4-10.4); MONO % 14.8 % (0-9); PLATELET COUNT 298 K/uL (130-400); RED BLOOD COUNT 4.95 M/uL (3.80-5.40); RED CELL DISTRIBUTION WIDTH 14.2 % (11.5-14.5); WHITE BLOOD COUNT W/O DIFF 5.1 K/uL (4.2-12.2)
[2017-03-11 18:32] LABS: BLOOD UREA NITROGEN 12 mg/dL (8-23); CREATININE 0.7 mg/dL (0.5-0.9); EST GLOMERULAR FILTRATION RATE > 60 mL/min; GLUCOSE,RANDOM 103 mg/dL (74-109)
[2017-03-11] MEDS ORDERED: LORAZEPAM 0.5 MG TABLET PO ONE (18:47)
--- NOTE | 2017-03-11 19:54 | RADIOLOGY REPORT ---
EXAM: CHEST 2 VIEWS HISTORY: SHORTNESS OF BREATH. TECHNIQUE: PA and lateral upright views of the chest were obtained. COMPARISON: 01/19/2017. FINDINGS: The heart, mediastinum, and pulmonary vasculature are normal. The lungs are hyperinflated consistent with COPD. Mild chronic interstitial changes are present at both lung bases and are unchanged. There are no acute infiltrates or effusions. There is no pneumothorax. The bones appear intact. IMPRESSION: 1. STABLE COPD AND MINOR CHRONIC INTERSTITIAL CHANGES. 2. NO ACUTE CHEST PATHOLOGY. JOB NUMBER: [id number] [facility]
== END 2017-03-11 19:27 | disposition home or self-care (01) ==
LOC: ER 16:50
DX: J44.1 Chronic obstructive pulmonary disease with (acute) exacerbation (principal); R06.02 Shortness of breath; R42 Dizziness and giddiness; R34 Anuria and oliguria; F41.0 Panic disorder [episodic paroxysmal anxiety]; I10 Essential (primary) hypertension; Z87.891 Personal history of nicotine dependence
CPT/HCPCS: 71046; 80048; 84484; 85025; 93005; 93010; 94640; 96361; 96374; 99284; J7040

== ENCOUNTER 2017-06-04 18:45 | Emergency (ER) | payer MEDICARE, OTHER ==
[2017-06-04] MEDS ORDERED: ONDANSETRON HCL IV 4 MG/2 ML VIAL IVP ONE (18:58)
[2017-06-04] MEDS ORDERED: HYOSCYAMINE SULFATE ODT 0.125 MG TAB.SUBL SL ONE (18:58)
[2017-06-04] MEDS ORDERED: 0.9 % SODIUM CHLORIDE 1000ML 1,000 ML IV SCH (19:00)
--- NOTE | 2017-06-04 19:03 | Emergency Department Record ---
History of Present Illness - General Chief Complaint: Shortness of breath Stated Complaint: LISE,ABOMINAL/BACK PAIN,BLOOD IN STOOL Time Seen by Provider: 06/04/17 18:57 Source: Patient Mode of Arrival: Ambulatory Limitations: No limitations - History of Present Illness Initial Comments: 66 yo female presents to ED for evaluation of diffuse abdominal pain symptoms x 1 hour, also report loose stools x 3 weeks with recent bloody stool x 1. Patient denies nausea, vomiting, fevers, or chills. Patient reports previous andie, appy, tubal ligation, and hysterectomy. Patient reports seeing her PCP for her symptoms, reports that no medication was prescribed. MD Complaint: Abdominal pain Onset/Timin -: Hour(s) Location: Diffuse Radiation: None Migration to: No migration Severity scale (1-10): 8 Quality: Cramping Consistency: Intermittent Improves With: Nothing Worsens With: Nothing Associated Symptoms: Diarrhea - Related Data Patient : No Previous Rx's Medication Instructions Recorded Albuterol Sulfate [Ventolin Hfa] 1 - 2 puff IH .EVERY 4-6 HOURS PRN 11/25/15 #1 inhaler Aspirin Enteric-Coated [Ecotrin 81 mg PO DAILY tabec 12/19/16 (EC)] Budesonide/Formoterol Fumarate 2 puff IH BID #1 hfa.aer.ad 12/19/16 [Symbicort 160-4.5 Mcg Inhaler] Ipratropium/Albuterol [Duoneb] 3 ml IH Q4HR #0 12/19/16 Ciprofloxacin HCl [Cipro] 500 mg PO Q12HR #19 tablet 06/04/17 Hyoscyamine Sulfate [Levsin-Sl] 0.25 mg SL Q8H PRN #15 tab.subl 06/04/17 Metronidazole [Flagyl] 500 mg PO TID #29 tablet 06/04/17 Allergies Allergy/AdvReac Type Severity Reaction Status Date / Time No Known Drug Allergies Allergy Verified 03/11/17 17:11 Travel Screening - Travel/Exposure Within Last 30 Days Have you traveled within the last 30 days?: No Review of Systems Constitutional: Denies: Chills, Fever, Malaise, Night sweats Eyes: Denies: Eye discharge, Eye pain ENT: Denies: Congestion, Ear pain, Epistaxis Respiratory: Denies: Cough, Dyspnea Cardiovascular: Denies: Chest pain, Dyspnea on exertion Endocrine: Denies: Fatigue, Heat or cold intolerance Gastrointestinal: Reports: Abdominal pain, Diarrhea, Hematochezia. Denies: Constipation, Nausea, Vomiting Genitourinary: Denies: Incontinence, Retention Musculoskeletal: Denies: Arthralgia, Back pain, Gout, Joint swelling Skin: Denies: Bruising, Change in color Neurological: Denies: Abnormal gait, Confusion, Headache Psychiatric: Denies: Anxiety Hematological/Lymphatic: Denies: Anemia, Blood Clots Past Medical History - SOCIAL HISTORY Smoking Status: Former smoker - RESPIRATORY Hx Respiratory Disorders: Yes Hx Bronchitis: Yes Hx COPD: Yes - CARDIOVASCULAR Hx Cardio Disorders: Yes Hx Hypertension: Yes - NEURO Hx Neuro Disorders: No - GI Hx GI Disorders: No - Hx Genitourinary Disorders: No - ENDOCRINE Hx Endocrine Disorders: No - MUSCULOSKELETAL Hx Musculoskeletal Disorders: No - PSYCH Hx Psych Problems: No - HEMATOLOGY/ONCOLOGY Hx Hematology/Oncology Disorders: No Family Medical History Any Significant Family History?: Yes Hx Cancer: Father, Mother *Cancer Comment: mother- lung ca, father-colon ca Hx Resp Disorders: Father, Grandparents Physical Exam - General General Appearance: Alert, Oriented x3, Cooperative, Moderate distress Limitations: No limitations - Head Head exam: Atraumatic, Normocephalic, Normal inspection Head exam detail: negative: Abrasion, Contusion, Palumbo's sign, General tenderness, Hematoma, Laceration - Eye Eye exam: Normal appearance. negative: Conjunctival injection, Periorbital swelling, Periorbital tenderness, Scleral icterus - ENT Ear exam: negative: Auricular hematoma, Auricular trauma Nasal Exam: negative: Active bleeding, Discharge, Dried blood Mouth exam: negative: Drooling, Laceration, Muffled voice, Tongue elevation - Neck Neck exam: Normal inspection. negative: Meningismus, Tenderness - Respiratory Respiratory exam: Decreased breath sounds. negative: Respiratory distress, Rhonchi, Stridor, Wheezes - Cardiovascular Cardiovascular Exam: Normal rhythm, Normal heart sounds, Tachycardia - GI/Abdominal GI/Abdominal exam: Soft, Tenderness (Mild diffuse TTP, no rebouind, no guarding present). negative: Rebound, Rigid - Rectal Rectal exam: Deferred - exam: Deferred - Extremities Extremities exam: Normal inspection. negative: Calf tenderness, Pedal edema, Tenderness - Back Back exam: Denies: CVA tenderness (R), CVA tenderness (L) - Neurological Neurological exam: Alert, Normal gait, Oriented X3 - Psychiatric Psychiatric exam: Normal affect, Normal mood - Skin Skin exam: Normal color. negative: Abrasion Type of lesion: negative: abrasion Course Vital Signs 06/04/17 18:49 Temperature 98.2 F Pulse Rate 107 H Respiratory 20 Rate Blood Pressure 140/86 Pulse Ox 94 L - Reevaluation(s) Reevaluation #1: 06/04/17 19:41 Labs reviewed and are grossly unremarkable for an acute process. Reevaluation #2: 06/04/17 20:16 UA reviewed and appears negative for infection. Patient is currently drinking oral contrast for CT imaging, resting comfortably at this time. Reevaluation #3: 06/04/17 21:33 Patient is back from CT imaging, updated on all results and reports that her symptoms are greatly improved. CT interpretation is pending. Reevaluation #4: 06/04/17 21:49 CT Abdomen and Pelvis: Mild diffuse bowel thickening of the colon c/w nonspecific colitis. Patient was updated on all results, will initiate treatment with Cipro and Flagyl with Levsin for symptomatic treatment. Patient reports improvement in her symptoms and appears stable for discharge at this time. Medical Decision Making - Lab Data Result diagrams: 06/04/17 19:12 06/04/17 19:12 Disposition Disposition: Discharge Clinical Impression: Colitis Abdominal pain Qualifiers: Abdominal location: unspecified location Qualified Code(s): R10.9 - Unspecified abdominal pain Disposition: Home, Self-Care Condition: (2) Stable Instructions: Abdominal Pain (ED), Colitis (ED) Additional Instructions: Return to ED if your symptoms worsen or if you have any concerns. Levsin as directed. Follow-up with your family doctor in 3-5 days as directed. Prescriptions: Ciprofloxacin HCl [Cipro] 500 mg PO Q12HR #19 tablet Hyoscyamine Sulfate [Levsin-Sl] 0.25 mg SL Q8H PRN #15 tab.subl PRN Reason: Abdominal Pain Metronidazole [Flagyl] 500 mg PO TID #29 tablet Forms: Patient Portal Access Time of Disposition: 21:53 Quality - Quality Measures Quality Measures: N/A - Blood Pressure Screening Does Patient Have Any of the Following: No Blood Pressure Classification: Pre-Hypertensive BP Reading Systolic Measurement: 140 Diastolic Measurement: 86 Screening for High Blood Pressure: < Pre-Hypertensive BP, F/U Documented > [ G8950] Pre-Hypertensive Follow-up Interventions: Referral to alternative/primary care provider.
[2017-06-04 19:19] LABS: BASO % 0.5 % (0-6); EOS % 3.5 % (0-6); GRAN % 61.7 % (47-80); HEMATOCRIT 44.6 % (35.0-47.0); HEMOGLOBIN 14.9 gm/dl (11.6-16.0); LYMPH % 22.5 % (16-45); MEAN CELL VOLUME 86.1 fl (81-97); MEAN CORPUSCULAR HEMOGLOBIN 28.8 pg (27-33); MEAN CORPUSCULAR HGB CONC 33.4 g/dl (32-36); MEAN PLATELET VOLUME 8.1 fl (7.4-10.4); MONO % 11.8 % (0-9); PLATELET COUNT 322 K/uL (130-400); RED BLOOD COUNT 5.18 M/uL (3.80-5.40); RED CELL DISTRIBUTION WIDTH 14.2 % (11.5-14.5); WHITE BLOOD COUNT W/O DIFF 4.3 K/uL (4.2-12.2)
[2017-06-04 19:30] LABS: BLOOD UREA NITROGEN 10 mg/dL (8-23); CREATININE 0.7 mg/dL (0.5-0.9); EST GLOMERULAR FILTRATION RATE > 60 mL/min
[2017-06-04 19:31] LABS: TOTAL PROTEIN 6.9 g/dL (6.6-8.7)
[2017-06-04 19:33] LABS: GLUCOSE,RANDOM 98 mg/dL (74-109)
[2017-06-04 19:35] LABS: ALT/SGPT 18 U/L (<33); AST/SGOT 20 U/L (10.0-35.0)
[2017-06-04 19:36] LABS: ALB/GLOB RATIO 1.7 (1.1-1.8); ALBUMIN 4.3 g/dL (4.0-5.0); ALKALINE PHOSPHATASE 64 U/L (35-104); LIPASE 23 U/L (13-60)
[2017-06-04 20:04] LABS: URINE APPEARANCE CLEAR; URINE BILIRUBIN NEGATIVE (NEGATIVE); URINE BLOOD NEGATIVE (NEGATIVE); URINE COLOR YELLOW; URINE GLUCOSE (UA) NEGATIVE (NEGATIVE); URINE KETONE 15 mg/dL (NEGATIVE); URINE LEUKOCYTE ESTERASE NEGATIVE (NEGATIVE); URINE NITRITE NEGATIVE (NEGATIVE); URINE PROTEIN NEGATIVE (NEGATIVE); URINE UROBILINOGEN 0.2 E.U./dL (0.20 - 1.00)
[2017-06-04] MEDS ORDERED: CIPROFLOXACIN HCL 500 MG TABLET PO ONE (21:54)
[2017-06-04] MEDS ORDERED: METRONIDAZOLE 250 MG TABLET PO ONE (21:54)
--- NOTE | 2017-06-06 08:22 | CT SCAN REPORT ---
EXAM: CT OF THE ABDOMEN AND PELVIS WITH CONTRAST HISTORY: DIFFUSE UPPER ABDOMINAL PAIN. PAIN RADIATES INTO SHOULDERS. HEMATOCHEZIA. TECHNIQUE: Following oral and intravenous contrast administration, helical CT examination of the abdomen and pelvis was performed including delayed images through the kidneys with 100 ml of Omnipaque 300 utilized. Comparison: CT abdomen and pelvis with contrast dated 01/07/09. FINDINGS: Minor linear scarring versus atelectasis in each lung base. The lung bases are otherwise clear and there is no pleural or pericardial effusion. The heart is not enlarged. No focal abnormality demonstrated in the liver, spleen, nor pancreas. The adrenal glands again appear somewhat nodular in configuration with the nodularity most pronounced in the left adrenal gland measuring 15 x 11 mm. These findings are grossly stable and likely relate to adenomatous change or hyperplasia. A contour deforming hypodense mass in the medial upper pole of the left kidney measuring 8 mm is too small for accurate characterization. It has not significantly changed in the interval. It is likely a cyst. A too small to characterize hypodense lesion in the anterior mid left renal cortex is slightly larger than on the prior examination. This is nonspecific, but likely a cortical cyst. There are low density areas within the lower pole left renal sinus likely relating to peripelvic renal cysts. These appear slightly more pronounced in the interval. The gallbladder is surgically absent and no biliary ductal dilatation is seen. No intraabdominal nor retroperitoneal lymphadenopathy. There is diffuse atherosclerosis without focal aneurysmal dilatation of the abdominal aorta nor iliac arteries. There is redemonstration of a moderate sized duodenal diverticulum arising from the second portion of the duodenum at the level of the ampulla of otter. This does not appear significantly changed. The uterus is surgically absent. No intrinsic urinary bladder abnormality is seen. No pelvic mass, lymphadenopathy, or free pelvic fluid. There is wall thickening throughout much of the colon extending into the rectum suspicious for diffuse nonspecific colitis. There is no extraluminal air. Occasional diverticula are noted within the distal sigmoid colon appearing uncomplicated. No new focal abdominal wall abnormality. No lytic or blastic bone lesion. There are degenerative changes scattered throughout the visualized spine. IMPRESSION: 1. MILD DIFFUSE WALL THICKENING THROUGHOUT THE COLON EXTENDING INTO THE RECTUM SUSPICIOUS FOR NONSPECIFIC COLITIS. THERE IS NO EVIDENCE OF EXTRALUMINAL AIR NOR PERICOLIC ABSCESS. 2. STATUS POST CHOLECYSTECTOMY. 3. MILD NODULARITY OF THE ADRENAL GLANDS, STABLE CONSISTENT WITH HYPERPLASIA OR ADENOMATOUS CHANGE. 4. TOO SMALL TO CHARACTERIZE HYPODENSE LESIONS WITHIN THE KIDNEYS ARE NONSPECIFIC, BUT LIKELY CYSTS. 5. SURGICAL ABSENCE OF THE UTERUS. JOB NUMBER: [id number] [facility]
== END 2017-06-04 22:03 | disposition home or self-care (01) ==
LOC: ER 18:45
DX: K52.9 Noninfective gastroenteritis and colitis, unspecified (principal); R06.02 Shortness of breath; R10.9 Unspecified abdominal pain; J44.9 Chronic obstructive pulmonary disease, unspecified; I10 Essential (primary) hypertension; K92.1 Melena; Z87.891 Personal history of nicotine dependence
CPT/HCPCS: 99284 ×2; 96374; 83690; 85025; 80053; 81003; 74177; Q9967; J1980; J2405; J7030

== ENCOUNTER 2017-06-10 16:27 | Emergency (ER) | payer MEDICARE, OTHER | END 2017-06-10 16:47 | disposition left against medical advice (07) | LOC: ER 16:27 | DX: Z53.20 Procedure and treatment not carried out because of patient's decision for unspecified reasons (principal) ==

== ENCOUNTER 2017-06-13 21:58 | Observation (INO) | payer MEDICARE, OTHER ==
[2017-06-13] MEDS ORDERED: IPRATROPIUM/ALBUTEROL (0.5MG/3MG) NEB INH ONE (22:03)
[2017-06-13] MEDS ORDERED: METHYLPREDNISOLONE PF 125MG/VIAL IVP ONE (22:03)
--- NOTE | 2017-06-13 22:07 | Emergency Department Record ---
History of Present Illness - General Chief Complaint: Shortness of breath Stated Complaint: LISE Time Seen by Provider: 06/13/17 22:03 Source: Patient Mode of Arrival: Ambulatory Limitations: No limitations - History of Present Illness Initial Comments: 66 yo female presents to ED for evaluation of difficulty in breathing for tonight. Patient reports a long history of COPD, recently completed antibiotics for treatment of colitis that she was diagnosed with 9 days ago. Patient denies fevers, chills, or productive cough symptoms. MD Complaint: Shortness of breath Onset/Timin -: Days(s) Severity: Moderate Consistency: Constant Improves With: Nothing Worsens With: Exertion Known History Of: COPD Context: Recent illness Associated Symptoms: Denies other symptoms Treatments Prior to Arrival: None - Related Data Home Oxygen Therapy: No Previous Rx's Medication Instructions Recorded Albuterol Sulfate [Ventolin Hfa] 1 - 2 puff IH .EVERY 4-6 HOURS PRN 11/25/15 #1 inhaler Budesonide/Formoterol Fumarate 2 puff IH BID #1 hfa.aer.ad 12/19/16 [Symbicort 160-4.5 Mcg Inhaler] Ipratropium/Albuterol [Duoneb] 3 ml IH Q4HR #0 12/19/16 Ciprofloxacin HCl [Cipro] 500 mg PO Q12HR #19 tablet 06/04/17 Hyoscyamine Sulfate [Levsin-Sl] 0.25 mg SL Q8H PRN #15 tab.subl 06/04/17 Metronidazole [Flagyl] 500 mg PO TID #29 tablet 06/04/17 Allergies Allergy/AdvReac Type Severity Reaction Status Date / Time No Known Drug Allergies Allergy Verified 03/11/17 17:11 Review of Systems Constitutional: Denies: Chills, Fever, Malaise, Night sweats Eyes: Denies: Eye discharge, Eye pain ENT: Denies: Congestion, Ear pain, Epistaxis Respiratory: Reports: Dyspnea, Wheezes. Denies: Cough Cardiovascular: Reports: Dyspnea on exertion. Denies: Chest pain, Edema Endocrine: Denies: Fatigue, Heat or cold intolerance Gastrointestinal: Denies: Abdominal pain, Nausea, Vomiting Genitourinary: Denies: Incontinence, Retention Musculoskeletal: Denies: Arthralgia, Back pain, Gout, Joint swelling Skin: Denies: Bruising, Change in color Neurological: Denies: Abnormal gait, Confusion, Headache, Seizure Psychiatric: Denies: Anxiety Hematological/Lymphatic: Denies: Anemia, Blood Clots Past Medical History - SOCIAL HISTORY Smoking Status: Former smoker - RESPIRATORY Hx Respiratory Disorders: Yes Hx Bronchitis: Yes Hx COPD: Yes - CARDIOVASCULAR Hx Cardio Disorders: Yes Hx Hypertension: Yes - NEURO Hx Neuro Disorders: No - GI Hx GI Disorders: No - Hx Genitourinary Disorders: No - ENDOCRINE Hx Endocrine Disorders: No - MUSCULOSKELETAL Hx Musculoskeletal Disorders: No - PSYCH Hx Psych Problems: No - HEMATOLOGY/ONCOLOGY Hx Hematology/Oncology Disorders: No Family Medical History Hx Cancer: Father, Mother *Cancer Comment: mother- lung ca, father-colon ca Hx Resp Disorders: Father, Grandparents Physical Exam - General General Appearance: Alert, Oriented x3, Cooperative, Moderate distress Limitations: No limitations - Head Head exam: Atraumatic, Normocephalic, Normal inspection Head exam detail: negative: Abrasion, Contusion, Palumbo's sign, General tenderness, Hematoma, Laceration - Eye Eye exam: Normal appearance. negative: Conjunctival injection, Periorbital swelling, Periorbital tenderness, Scleral icterus - ENT Ear exam: negative: Auricular hematoma, Auricular trauma Nasal Exam: negative: Active bleeding, Discharge, Dried blood, Foreign body Mouth exam: negative: Drooling, Laceration, Muffled voice, Tongue elevation - Neck Neck exam: Normal inspection. negative: Meningismus, Tenderness - Respiratory Respiratory exam: Decreased breath sounds, Prolonged expiratory, Respiratory distress. negative: Rhonchi, Stridor - Cardiovascular Cardiovascular Exam: Regular rate, Normal rhythm, Normal heart sounds - GI/Abdominal GI/Abdominal exam: Soft. negative: Rebound, Rigid, Tenderness - Rectal Rectal exam: Deferred - exam: Deferred - Extremities Extremities exam: Normal inspection. negative: Calf tenderness, Pedal edema, Tenderness - Back Back exam: Denies: CVA tenderness (R), CVA tenderness (L) - Neurological Neurological exam: Alert, Normal gait, Oriented X3 - Psychiatric Psychiatric exam: Normal affect, Normal mood - Skin Skin exam: Normal color. negative: Abrasion Type of lesion: negative: abrasion Course - Reevaluation(s) Reevaluation #1: 06/13/17 22:31 Patient reassessed, BS improved, however the patient is still tachypnic with pursed breathing. 2nd treatment ordered. Reevaluation #2: 06/13/17 23:11 Patient reassessed following 2nd breathing treatment, continues to exhibit pursed breathing, however RR and oxygenation are improved. Will admit for further evaluation and treatment overnight. Reevaluation #3: 06/14/17 06:46 Case was discussed with Dr. Sen, will accept admission at this time. Disposition Disposition: Admit Clinical Impression: COPD with acute exacerbation Disposition: Still a Patient at [facility] Decision to Admit: Admit from ER Decision to Admit Date: 06/13/17 Decision to Admit Time: 23:12 Condition: (2) Stable Time of Disposition: 23:12 Quality - Quality Measures Quality Measures: N/A - Blood Pressure Screening Does Patient Have Any of the Following: Active Dx of HTN Blood Pressure Classification: Pre-Hypertensive BP Reading Systolic Measurement: 128 Diastolic Measurement: 84 Screening for High Blood Pressure: Patient Exclusion, Hx of HTN [G9744]
[2017-06-13] MEDS ORDERED: ALBUTEROL SULFATE (0.083%) 2.5 MG/3 ML NEB INH SCH (22:45)
[2017-06-13] MEDS ORDERED: ALBUTEROL SULFATE (0.083%) 2.5 MG/3 ML NEB INH ONE (22:45)
[2017-06-13] MEDS ORDERED: ALBUTEROL SULFATE (0.083%) 2.5 MG/3 ML NEB INH PRN (23:43)
[2017-06-13] MEDS ORDERED: 0.9 % SODIUM CHLORIDE 1000ML 1,000 ML IV PRN (23:43)
[2017-06-14] MEDS ORDERED: METRONIDAZOLE 250 MG TABLET PO SCH (00:15)
[2017-06-14] MEDS ORDERED: HYOSCYAMINE SULFATE ODT 0.125 MG TAB.SUBL SL PRN (00:30)
[2017-06-14] MEDS: CIPROFLOXACIN HCL 500 MG TABLET PO SCH ×2 (00:36→07:43)
[2017-06-14] MEDS: IPRATROPIUM/ALBUTEROL (0.5MG/3MG) NEB INH SCH ×3 (01:29→10:56)
[2017-06-14] MEDS ORDERED: METHYLPREDNISOLONE PF 125MG/VIAL IVP SCH ×2 (08:00→10:00)
--- NOTE | 2017-06-14 09:54 | Discharge Note ---
VTE H&P Assessment - Risk for VTE Risk for VTE: No Risk Level: Very Low Risk Assessment Date: 06/14/17 Risk Assessment Time: 09:49 VTE Orders Placed or Will Be Placed: No VTE Reason for No Prophylaxis: Not Indicated Discharge Medications - Discharge Medications Prescriptions: Azithromycin [Zithromax] 500 mg PO DAILY #6 tab Prednisone [Prednisone 20Mg] 20 mg PO BIDIV #10 tab Home Medications: Ambulatory Orders Albuterol Sulfate [Ventolin Hfa] 1 - 2 puff IH .EVERY 4-6 HOURS PRN #1 inhaler 11/25/15 [Last Taken 03/11/17] Amlodipine Besylate 5 mg PO DAILY 12/16/16 [Last Taken 03/11/17] Budesonide/Formoterol Fumarate [Symbicort 160-4.5 Mcg Inhaler] 2 puff IH BID #1 hfa.aer.ad 12/19/16 [Last Taken 03/11/17] Ipratropium/Albuterol [Duoneb] 3 ml IH Q4HR #0 12/19/16 [Last Taken 03/11/17] Hyoscyamine Sulfate [Levsin-Sl] 0.25 mg SL Q8H PRN #15 tab.subl 06/04/17 [Last Taken Unknown] Azithromycin [Zithromax] 500 mg PO DAILY #6 tab 06/14/17 [Last Taken Unknown] Ipratropium/Albuterol [Duoneb] 3 ml INH RESP.Q4H.WA ampul.neb 06/14/17 [Last Taken Unknown] Prednisone [Prednisone 20Mg] 20 mg PO BIDIV #10 tab 06/14/17 [Last Taken Unknown ] Discharge Note - Date Date of Discharge Note: 06/14/17 Disposition: Home, Self-Care Condition: (2) Stable Additional Instructions: follow up with Dr. Sen on saturday Forms: Patient Portal Access Activity at Discharge: Increase Activity as Tolerated
[2017-06-14] MEDS ORDERED: AZITHROMYCIN 500 MG TABLET PO SCH (10:00)
[2017-06-14] MEDS ORDERED: AMLODIPINE BESYLATE 5MG TAB PO SCH (10:00)
[2017-06-14] MEDS ORDERED: CEFTRIAXONE 1GM/50ML BAG 1 GM/50 ML BAG IVPB SCH (10:00)
[2017-06-14] MEDS ORDERED: ASPIRIN 81 MG TABEC PO SCH (10:00)
[2017-06-14] MEDS ORDERED: BREO (FLUTICASONE/VILANTEROL) 200MCG/25MCG INHALER INH SCH (10:00)
[2017-06-14] MEDS ORDERED: SERTRALINE HCL 25 MG PO SCH (10:00)
--- NOTE | 2017-06-14 12:30 | Discharge Summary ---
DATE OF ADMISSION: 06/13/2017 DATE OF DISCHARGE: 06/14/2017 Attending physician: Rodney Sen, DO DISCHARGE DIAGNOSES: 1. Acute exacerbation of COPD. 2. Bronchitis. 3. Status post history of hypertension. 4. Status post recent diverticulitis and colitis of the colon, CT scan done about 2 weeks ago. REASON FOR HOSPITALIZATION: This 66-year-old female presents to the emergency department with shortness of breath, it progressively got worse over the last 2 days. She has a cough, slightly dizzy. Seen in the emergency department by Dr. Mckenna and admitted to the hospital for acute exacerbation of bronchitis and COPD. SIGNIFICANT FINDINGS: Chest x-ray showing COPD, but no infiltrates seen. Pending radiology's interpretation, that was my evaluation of the chest x-ray. LABORATORY: No labs were drawn in the emergency department. THERAPY PROVIDED: The patient was given 1 dose of IV Solu-Medrol 125 in the emergency department and breathing treatments and admitted to the hospital for observation. HOSPITAL COURSE: The patient is feeling much better on my evaluation. CONDITION ON DISCHARGE: Much improved. DISCHARGE INSTRUCTIONS: Follow up with Dr. Sen on Saturday. Azithromycin 500 mg q. daily. Prednisone 20 mg b.i.d. Continue her home medications of: 1. Symbicort 160/4.5 2 puffs b.i.d. 2. Amlodipine 5 mg q. daily. 3. Ventolin 2 puffs q.4 hours. 4. Stop the Cipro. 5. Stop the Flagyl. 6. Only use Levsin p.r.n. MTDD
--- NOTE | 2017-06-14 12:30 | History and Physical Report ---
DATE OF ADMISSION: 06/13/2017 CHIEF COMPLAINT: Dyspnea, cough. HISTORY OF PRESENT ILLNESS: This 66-year-old female stated that she developed shortness of breath and cough over the last 2-3 days. She states that it was much worse last night. Came into the emergency department and evaluated by Dr. Nayak, admitted to the hospital for exacerbation of COPD. PAST MEDICAL HISTORY: COPD, tobacco use. She stopped on October 2014. Osteopenia and hypertension. PAST SURGICAL HISTORY: Hysterectomy, cholecystectomy, appendectomy, tubal ligation. MEDICATIONS: 1. Flagyl 500 mg t.i.d. 2. DuoNeb q.4 h. 3. Levsin 0.25 sublingual q.8 h. p.r.n. 4. Cipro 500 mg b.i.d. 5. Symbicort 160/4.5 two puffs b.i.d. 6. Amlodipine 5 mg daily. 7. Ventolin 2 puffs q.4 h. p.r.n. ALLERGIES: No known drug allergies. SOCIAL HISTORY: She is a former smoker. She stopped in October 2014. FAMILY HISTORY: Father and mother had cancer. Mother had lung cancer. Father had colon cancer. She denies any alcohol or drug use. REVIEW OF SYSTEMS: HEENT: Slightly hoarse voice. She denies a sore throat. She states that her voice is hoarse a lot of the time. She denies any hearing problems or swallowing problems. She has some congestion and she has a cough mostly dry. Cardiovascular: No chest pain, palpitations, or arrhythmia. Respiratory: She is short of breath with exertion but much better since last night. She has some respiratory distress secondary to her COPD. Gastrointestinal: No nausea, vomiting, diarrhea, black stools, or bloody stools. Genitourinary: No dysuria, hematuria, frequency, or burning on urination. Musculoskeletal: She has arthritis in her joints. Neurological: No CVA, paralysis, or paresthesias. FORM PRESSER: No lumps in her breasts or abnormal vaginal bleeding. Endocrine: No diabetes or thyroid disease. Integument: No rash, ulcers, change in moles, or yellow skin. PHYSICAL EXAMINATION: VITALS: Height 5 feet 5 inches, weight 167 pounds. Temperature 97.9, pulse 100, blood pressure 112/74, respiratory rate 20, pulse ox 91% on room air. HEENT: Pupils are equal, round, and reactive to light and accommodation. Extraocular muscles are intact. Throat is clear. Nose is clear. Tympanic membranes are venegas. NECK: Supple. No jugular venous distention. No hepatojugular reflux. No carotid bruits. Thyroid is smooth. CARDIOVASCULAR: Regular rate and rhythm without murmurs, clicks, rubs, or gallops. RESPIRATORY: She has decreased breath sounds bilaterally but wheezing is none at this time. ABDOMEN: Soft, nontender. No hepatosplenomegaly, no masses, no tenderness. Bowel sounds are active. No bruits. EXTREMITIES: No pitting edema. No cyanosis, no clubbing. Full range of motion. Peripheral pulses are good. BREASTS: Exam deferred. GYNECOLOGICAL: Exam deferred. RECTAL: Exam deferred. NEUROLOGIC: Cranial nerves II-XII intact. No gross defects. Sensation normal, strength normal. Deep tendon reflexes equal bilaterally with Babinski negative. MENTAL STATUS: Alert and oriented x3. IMPRESSION: 1. Acute bronchitis. 2. Acute exacerbation of chronic obstructive pulmonary disease. 3. Status post hypertension. 4. Status post osteopenia. PLAN: At this point, she is stable and can go home. We will switch her antibiotics to Z-Josh. We will stop the Cipro and Flagyl. Her belly pain is better. Prednisone 20 mg b.i.d. for 5 days. This is an observation patient. OCHOAD
--- NOTE | 2017-06-14 12:40 | RADIOLOGY REPORT ---
EXAM: CHEST, TWO VIEWS HISTORY: DIFFICULTY IN BREATHING. TECHNIQUE: Frontal and lateral views of the chest were performed. Comparison: 03/11/17. FINDINGS: The heart size is normal. There is underlying emphysema. No superimposed infiltrate or pleural effusion. The osseous structures are normal. IMPRESSION: HYPERINFLATED LUNGS WITH UNDERLYING EMPHYSEMA. NO SUPERIMPOSED INFILTRATE OR PLEURAL EFFUSION. JOB NUMBER: [id number] MTDD
== END 2017-06-14 11:27 | disposition home or self-care (01) ==
LOC: ER 21:58 → MEDSURG 23:36
PROVIDERS: ADMIT Emergency Medicine; ATTEND Emergency Medicine
DX: J44.1 Chronic obstructive pulmonary disease with (acute) exacerbation (principal); J40 Bronchitis, not specified as acute or chronic; K57.92 Diverticulitis of intestine, part unspecified, without perforation or abscess without bleeding; K52.9 Noninfective gastroenteritis and colitis, unspecified; I10 Essential (primary) hypertension; Z87.891 Personal history of nicotine dependence; M85.80 Other specified disorders of bone density and structure, unspecified site
CPT/HCPCS: 99285 ×2; 96374; 71046; 94640 ×4; 94761; G0378 ×2; 99220; J2930; J7613

== ENCOUNTER 2017-07-12 11:19 | Day surgery (SDC) | payer MEDICARE, OTHER ==
[2017-07-12] MEDS ORDERED: PROPOFOL 10 MG/ML VIAL IV ONE (11:20)
[2017-07-12] MEDS ORDERED: MIDAZOLAM HCL 2MG/2ML VIAL IV ONE (11:20)
[2017-07-12] MEDS ORDERED: LIDOCAINE 2% MDV (20MG/ML) 20ML VIAL IV ONE (11:20)
--- NOTE | 2017-07-16 12:40 | Operative Note ---
DATE OF SURGERY: 07/12/2017 SURGEON: Alicia Rahman MD OPERATION: COLONOSCOPY. INDICATIONS: This is a 66-year-old female with history of recent colitis who presented for colonoscopy. POSTOPERATIVE DIAGNOSES: 1. Severe left-sided colonic diverticulosis with stricture and status post biopsies. 2. Otherwise normal colon. 3. The terminal ileum could not reach it endoscopically for biopsies. ANESTHESIA: Sedation is per Anesthesia. Pulse oximetry was monitored throughout the procedure to maintain O2 saturation of 90% or greater. Supplemental oxygen was administered via nasal cannula. Cardiac and vital signs were monitored throughout the duration of the procedure, and they were stable. The procedure of colonoscopy and risks and alternatives of the procedure, including the risk of bleeding and perforation, among others, were explained to the patient who voiced understanding and agreed to have the procedure done. Physical examination was performed, and the patient was found stable for sedation. PROCEDURE: The patient was placed in the left lateral position. Sedation was initiated. A digital rectal exam was performed and showed some mild external hemorrhoids with no palpable rectal masses. An Olympus PCF-180AL colonoscope was then inserted into the rectum and advanced to the sigmoid colon with significant difficulty. The difficulty was due to fixation of the sigmoid colon and poor endoscopic maneuverability. The colonoscope was then withdrawn and the gastroscope was then used. Was able to cross into the ascending colon but could not advance the colonoscope because of the fixation of the sigmoid colon. The gastroscope was then withdrawn and a lubricated Olympus [id number] colonoscope was then inserted into the rectum and with significant external abdominal wall compression, the sigmoid colon was traversed into the descending colon and subsequently into the ascending colon and the cecum with no further difficulty. Attempt to intubate the terminal ileum was unsuccessful but I was able to peek into it and it showed a small portion of the terminal ileum. The colonoscope was then withdrawn while carefully examining the colonic mucosal surfaces. No other lesions were noted. Random biopsies were obtained in the right colon and the left colon. She remained with stable vital signs and was transferred to the recovery room. RECOMMENDATIONS: 1. We will follow up on the biopsies. 2. We will see the patient in the office and she is to have a repeat colonoscopy in about 3 years. Thank you for allowing me to participate in the care of your patient. CC: DO JANEL Crawley
== END 2017-07-12 13:26 | disposition home or self-care (01) ==
LOC: HOP 11:19
PROVIDERS: ATTEND Internal Medicine Gastroenterology
DX: K52.9 Noninfective gastroenteritis and colitis, unspecified (principal); K57.30 Diverticulosis of large intestine without perforation or abscess without bleeding; I10 Essential (primary) hypertension; J44.9 Chronic obstructive pulmonary disease, unspecified

== ENCOUNTER 2017-08-28 12:49 | Emergency (ER) | payer MEDICARE, OTHER ==
--- NOTE | 2017-08-28 14:10 | Emergency Department Record ---
History of Present Illness - General Chief complaint: Eye Problem Stated complaint: BLURRY VISION,LIGHT HEADED Time Seen by Provider: 08/28/17 13:03 Source: Patient, RN notes reviewed Mode of Arrival: Ambulatory - History of Present Illness Initial comments: visual distortion and lasted about 30 minutes and some lightheaded and slight headache Onset/Timin -: Hour(s) Location: Both eyes Eye Symptoms: Blurry vision - Related Data Hx Tetanus Toxoid Vaccination: Yes Year of Tetanus Vaccination: 2014 Home Medications Medication Instructions Recorded Confirmed Last Taken Atorvastatin Calcium 20 mg PO DAILY 08/28/17 08/28/17 08/27/17 Previous Rx's Medication Instructions Recorded Albuterol Sulfate [Ventolin Hfa] 1 - 2 puff IH .EVERY 4-6 HOURS PRN 11/25/15 #1 inhaler Budesonide/Formoterol Fumarate 2 puff IH BID #1 hfa.aer.ad 12/19/16 [Symbicort 160-4.5 Mcg Inhaler] Ipratropium/Albuterol [Duoneb] 3 ml IH Q4HR #0 12/19/16 Hyoscyamine Sulfate [Levsin-Sl] 0.25 mg SL Q8H PRN #15 tab.subl 06/04/17 Ipratropium/Albuterol [Duoneb] 3 ml INH RESP.Q4H.WA ampul.neb 06/14/17 Prednisone [Prednisone 20Mg] 20 mg PO BIDIV #10 tab 06/14/17 Allergies Allergy/AdvReac Type Severity Reaction Status Date / Time No Known Drug Allergies Allergy Verified 08/28/17 13:43 Travel Screening - Travel/Exposure Within Last 30 Days Have you traveled within the last 30 days?: No - Travel/Exposure Within Last Year Have you traveled outside the [place] in the last year?: No - Additonal Travel Details Have you been exposed to anyone with a communicable illness?: No - Travel Symptoms Symptom Screening: None Past Medical History - SOCIAL HISTORY Smoking Status: Former smoker Alcohol Use: None Drug Use: None - RESPIRATORY Hx Respiratory Disorders: Yes Hx Bronchitis: Yes Hx COPD: Yes - CARDIOVASCULAR Hx Cardio Disorders: Yes Hx Hypertension: Yes Hx Palpitations: Yes (tachycardia r/t hx of anxiety) - NEURO Hx Neuro Disorders: Yes Hx Dizziness: Yes - GI Hx GI Disorders: Yes Hx Abdominal Pain: Yes Hx Diverticulitis: Yes Hx Reflux: Yes Hx Irritable Bowel: Yes Hx Rectal Bleeding: Yes Hx of Polyps: Yes Comment:: colitis - Hx Genitourinary Disorders: Yes Hx Bladder Problem: Yes Hx UTI: Yes - ENDOCRINE Hx Endocrine Disorders: No Hx Diabetes: No Hx Thyroid Disease: No - MUSCULOSKELETAL Hx Musculoskeletal Disorders: Yes Hx Arthritis: Yes Hx Osteoporosis: Yes - PSYCH Hx Psych Problems: Yes Hx Anxiety: Yes - HEMATOLOGY/ONCOLOGY Hx Hematology/Oncology Disorders: No Hx Anemia: No Hx Blood Disorders: No Hx Bruising: No Hx Cancer: No Hx Clotting Problems: No Hx Sickle Cell Disease: No Hx Unexplained Bleeding: No Hx Blood Transfusions: No Hx Blood Transfusion Reaction: No Family Medical History Any Significant Family History?: Yes Hx Cancer: Father, Mother *Cancer Comment: mother- lung ca, father-colon ca Hx Resp Disorders: Father, Grandparents Course Vital Signs 08/28/17 13:49 Temperature 98.5 F Pulse Rate 70 Respiratory 18 Rate Blood Pressure 146/86 Pulse Ox 92 L Medical Decision Making - Data Complexity MDM Data: Labs Ordered and/or Reviewed, X-Ray Ordered and/or Reviewed (CT head negative) - Lab Data Result diagrams: 08/28/17 14:30 08/28/17 14:30 Disposition Clinical Impression: Visual distortion, Headache Disposition: Home, Self-Care Condition: (1) Good Instructions: Ocular Migraine (ED) Additional Instructions: follow up with Dr Sen on saturday increase fluids Forms: Patient Portal Access Time of Disposition: 15:42 Quality - Quality Measures Quality Measures: N/A - Blood Pressure Screening Does Patient Have Any of the Following: No Blood Pressure Classification: Pre-Hypertensive BP Reading Systolic Measurement: 146 Diastolic Measurement: 86 Screening for High Blood Pressure: < Pre-Hypertensive BP, F/U Documented > [ G8950] Pre-Hypertensive Follow-up Interventions: Referral to alternative/primary care provider.
[2017-08-28 14:42] LABS: BASO % 0.7 % (0-6); EOS % 4.5 % (0-6); GRAN % 53.9 % (47-80); HEMATOCRIT 47.9 % (35.0-47.0); HEMOGLOBIN 16.2 gm/dl (11.6-16.0); LYMPH % 32.4 % (16-45); MEAN CELL VOLUME 87.2 fl (81-97); MEAN CORPUSCULAR HEMOGLOBIN 29.5 pg (27-33); MEAN CORPUSCULAR HGB CONC 33.8 g/dl (32-36); MEAN PLATELET VOLUME 8.4 fl (7.4-10.4); MONO % 8.5 % (0-9); PLATELET COUNT 284 K/uL (130-400); RED BLOOD COUNT 5.49 M/uL (3.80-5.40); RED CELL DISTRIBUTION WIDTH 14.9 % (11.5-14.5); WHITE BLOOD COUNT W/O DIFF 5.5 K/uL (4.2-12.2)
[2017-08-28 14:49] LABS: BLOOD UREA NITROGEN 9 mg/dL (8-23)
[2017-08-28 14:50] LABS: CREATININE 0.6 mg/dL (0.5-0.9); EST GLOMERULAR FILTRATION RATE > 60 mL/min
[2017-08-28 14:52] LABS: GLUCOSE,RANDOM 98 mg/dL (74-109)
--- NOTE | 2017-08-29 12:51 | CT SCAN REPORT ---
EXAM: CT OF THE BRAIN WITHOUT CONTRAST HISTORY: BLURRED VISION. TECHNIQUE: Sequential axial images were obtained from the foramen magnum to the vertex without contrast administration. FINDINGS: The brain volume is normal. No large territorial infarct, hemorrhage , mass effect, or midline shift. No extraaxial fluid collection. The orbits, paranasal sinuses and mastoid air cells are normal. IMPRESSION: NO ACUTE INTRACRANIAL ABNORMALITY IS APPRECIATED. JOB NUMBER: [id number] [facility]
== END 2017-08-28 16:34 | disposition home or self-care (01) ==
LOC: ER 12:49
DX: R51 Headache (principal); H53.8 Other visual disturbances; J44.9 Chronic obstructive pulmonary disease, unspecified; R42 Dizziness and giddiness; I10 Essential (primary) hypertension; Z87.891 Personal history of nicotine dependence
CPT/HCPCS: 70450; 80048; 85025; 85730; 99283; 99284

== ENCOUNTER 2017-12-28 20:48 | Emergency (ER) | payer MEDICARE, OTHER ==
--- NOTE | 2017-12-28 20:56 | Emergency Department Record ---
History of Present Illness - General Chief Complaint: Chest Pain Stated Complaint: HEART RACING, CHEST PRESSURE Time Seen by Provider: 12/28/17 20:55 Source: Patient, Family Mode of Arrival: Ambulatory Limitations: No limitations - Related Data Previous Rx's Medication Instructions Recorded Albuterol Sulfate [Ventolin Hfa] 1 - 2 puff IH .EVERY 4-6 HOURS PRN 11/25/15 #1 inhaler Budesonide/Formoterol Fumarate 2 puff IH BID #1 hfa.aer.ad 12/19/16 [Symbicort 160-4.5 Mcg Inhaler] Ipratropium/Albuterol [Duoneb] 3 ml IH Q4HR #0 12/19/16 Hyoscyamine Sulfate [Levsin-Sl] 0.25 mg SL Q8H PRN #15 tab.subl 06/04/17 Ipratropium/Albuterol [Duoneb] 3 ml INH RESP.Q4H.WA ampul.neb 06/14/17 Allergies Allergy/AdvReac Type Severity Reaction Status Date / Time No Known Drug Allergies Allergy Verified 12/28/17 20:52 Past Medical History - SOCIAL HISTORY Smoking Status: Former smoker Drug Use: None - RESPIRATORY Hx Respiratory Disorders: Yes Hx Bronchitis: Yes Hx COPD: Yes - CARDIOVASCULAR Hx Cardio Disorders: Yes Hx Hypertension: Yes Hx Palpitations: Yes (tachycardia r/t hx of anxiety) - NEURO Hx Neuro Disorders: Yes Hx Dizziness: Yes - GI Hx GI Disorders: Yes Hx Abdominal Pain: Yes Hx Diverticulitis: Yes Hx Reflux: Yes Hx Irritable Bowel: Yes Hx Rectal Bleeding: Yes Hx of Polyps: Yes Comment:: colitis - Hx Genitourinary Disorders: Yes Hx Bladder Problem: Yes Hx UTI: Yes - ENDOCRINE Hx Endocrine Disorders: No Hx Diabetes: No Hx Thyroid Disease: No - MUSCULOSKELETAL Hx Musculoskeletal Disorders: Yes Hx Arthritis: Yes Hx Osteoporosis: Yes - PSYCH Hx Psych Problems: Yes Hx Anxiety: Yes - HEMATOLOGY/ONCOLOGY Hx Hematology/Oncology Disorders: No Hx Anemia: No Hx Blood Disorders: No Hx Bruising: No Hx Cancer: No Hx Clotting Problems: No Hx Sickle Cell Disease: No Hx Unexplained Bleeding: No Hx Blood Transfusions: No Hx Blood Transfusion Reaction: No Family Medical History Hx Cancer: Father, Mother *Cancer Comment: mother- lung ca, father-colon ca Hx Resp Disorders: Father, Grandparents Course - Reevaluation(s) Reevaluation #1: EKG 2053 sinus rhythm rate 94 intervals normal [place] leftward ST no acute changes No changes on the EKG from 03/11/17 or 01/19/17 12/28/17 21:04 Disposition Forms: Patient Portal Access Quality - Blood Pressure Screening Does Patient Have Any of the Following: No Blood Pressure Classification: Pre-Hypertensive BP Reading Systolic Measurement: 121 Diastolic Measurement: 75 Screening for High Blood Pressure: < Pre-Hypertensive BP, F/U Documented > [ G8950]
--- NOTE | 2017-12-28 21:18 | Emergency Department Record ---
History of Present Illness - General Chief Complaint: Chest Pain Stated Complaint: HEART RACING, CHEST PRESSURE Time Seen by Provider: 12/28/17 20:55 Source: Patient, Family Mode of Arrival: Ambulatory Limitations: No limitations - History of Present Illness Initial Comments: 67 yo female presents with a feeling of heart racing the last 4 days. She states it comes and goes but now it feels constant. She denies and known history of arrhythmia, CAD. She does have COPD. She has been a little short of breath. No cough. She feels "a discomfort" when the heart racing is occurring but can not be more specific. No syncope or dizziness. She reports similar symptoms a year ago and was evaluated at [facility]. She reports the testing was negative for a serious cause. She states she feels very anxious with the heart racing. Dr Sen is her PCP. Complaint: Other Onset/Timin -: Days(s) Onset: During rest Pain Location: Substernal Pain Radiation: Back Severity: Moderate Severity scale (1-10): 3 Quality: Heaviness Consistency: Intermittent Improves With: Nothing Worsens With: Nothing Context: Other (No new medications) Anginal Symptoms: Dyspnea Treatments Prior to Arrival: Aspirin Treatment Prior to Arrival Comment:: 2 baby Asa hour ago - Related Data Previous Rx's Medication Instructions Recorded Albuterol Sulfate [Ventolin Hfa] 1 - 2 puff IH .EVERY 4-6 HOURS PRN 11/25/15 #1 inhaler Budesonide/Formoterol Fumarate 2 puff IH BID #1 hfa.aer.ad 12/19/16 [Symbicort 160-4.5 Mcg Inhaler] Ipratropium/Albuterol [Duoneb] 3 ml IH Q4HR #0 12/19/16 Hyoscyamine Sulfate [Levsin-Sl] 0.25 mg SL Q8H PRN #15 tab.subl 06/04/17 Ipratropium/Albuterol [Duoneb] 3 ml INH RESP.Q4H.WA ampul.neb 06/14/17 Allergies Allergy/AdvReac Type Severity Reaction Status Date / Time No Known Drug Allergies Allergy Verified 12/28/17 20:52 Travel Screening - Travel/Exposure Within Last 30 Days Have you traveled within the last 30 days?: No - Travel/Exposure Within Last Year Have you traveled outside the [place] in the last year?: No - Additonal Travel Details Have you been exposed to anyone with a communicable illness?: No - Travel Symptoms Symptom Screening: None Review of Systems Constitutional: Denies: Chills, Fever, Malaise, Weakness Eyes: Denies: Eye discharge, Eye pain, Photophobia, Vision change ENT: Denies: Congestion, Throat pain Respiratory: Reports: Dyspnea. Denies: Cough, Hemoptysis, Stridor, Wheezes Cardiovascular: Reports: As per HPI, Chest pain ("discomfort", feels different, not pain, she states she can not put it in words), Palpitations. Denies: Edema Endocrine: Denies: Fatigue, Polydipsia, Polyuria Gastrointestinal: Denies: Abdominal pain, Diarrhea, Nausea, Vomiting Genitourinary: Denies: Dysuria Musculoskeletal: Denies: Arthralgia, Back pain, Joint swelling, Myalgia Skin: Denies: Bruising, Change in color, Rash Neurological: Denies: Headache Psychiatric: Reports: Anxiety Hematological/Lymphatic: Denies: Blood Clots, Easy bleeding, Easy bruising Past Medical History - SOCIAL HISTORY Smoking Status: Former smoker Drug Use: None - RESPIRATORY Hx Respiratory Disorders: Yes Hx Bronchitis: Yes Hx COPD: Yes - CARDIOVASCULAR Hx Cardio Disorders: Yes Hx Hypertension: Yes Hx Palpitations: Yes (tachycardia r/t hx of anxiety) - NEURO Hx Neuro Disorders: Yes Hx Dizziness: Yes - GI Hx GI Disorders: Yes Hx Abdominal Pain: Yes Hx Diverticulitis: Yes Hx Reflux: Yes Hx Irritable Bowel: Yes Hx Rectal Bleeding: Yes Hx of Polyps: Yes Comment:: colitis - Hx Genitourinary Disorders: Yes Hx Bladder Problem: Yes Hx UTI: Yes - ENDOCRINE Hx Endocrine Disorders: No Hx Diabetes: No Hx Thyroid Disease: No - MUSCULOSKELETAL Hx Musculoskeletal Disorders: Yes Hx Arthritis: Yes Hx Osteoporosis: Yes - PSYCH Hx Psych Problems: Yes Hx Anxiety: Yes - HEMATOLOGY/ONCOLOGY Hx Hematology/Oncology Disorders: No Hx Anemia: No Hx Blood Disorders: No Hx Bruising: No Hx Cancer: No Hx Clotting Problems: No Hx Sickle Cell Disease: No Hx Unexplained Bleeding: No Hx Blood Transfusions: No Hx Blood Transfusion Reaction: No Family Medical History Hx Cancer: Father, Mother *Cancer Comment: mother- lung ca, father-colon ca Hx Resp Disorders: Father, Grandparents Physical Exam - General General Appearance: Alert, Oriented x3, Cooperative, No acute distress Limitations: No limitations - Head Head exam: Atraumatic, Normal inspection - Eye Eye exam: Normal appearance, PERRL. negative: Conjunctival injection, Scleral icterus - ENT ENT exam: Normal exam, Mucous membranes moist, Normal orophraynx Ear exam: Normal external inspection Nasal Exam: Normal inspection Mouth exam: Normal external inspection - Neck Neck exam: Normal inspection, Full ROM. negative: Tenderness - Respiratory Respiratory exam: Decreased breath sounds, Wheezes (mild expiratory). negative : Normal lung sounds bilaterally, Accessory muscle use, Prolonged expiratory - Cardiovascular Cardiovascular Exam: Regular rate, Normal rhythm, Normal heart sounds. negative : Diastolic murmur, Systolic murmur, Tachycardia Peripheral Pulses: 2+: Radial (R), Radial (L) - GI/Abdominal GI/Abdominal exam: Soft. negative: Tenderness - Rectal Rectal exam: Deferred - exam: Deferred - Extremities Extremities exam: Normal inspection, Full ROM, Normal capillary refill. negative: Pedal edema, Tenderness - Back Back exam: Denies: CVA tenderness (R), CVA tenderness (L) - Neurological Neurological exam: Alert, Oriented X3 - Psychiatric Psychiatric exam: Normal affect, Normal mood - Skin Skin exam: Dry, Intact, Normal color, Warm Course Vital Signs 12/28/17 20:53 Temperature 97.7 F Pulse Rate 98 H Respiratory 24 Rate Blood Pressure 121/75 Pulse Ox 95 - Reevaluation(s) Reevaluation #1: EKG 2054 sinus rhythm rate 94 intervals normal [place] leftward ST no acute changes No changes on the EKG from 03/11/17 or 01/19/17 or 02/10/16 when she had similar symptoms 12/28/17 21:04 12/28/17 21:32 12/28/17 21:34 EMR reviewed. The patient was transferred to [facility] 02/10/16 for similar symptoms [facility] contacted for prior records. 12/28/17 21:50 The labs were reviewed No acute changes on the CBC, CMP, and Troponin She remains NSR with a rate in the 80's on the monitor without any ectopy or tachycardia. 12/28/17 22:09 The CXR was negative for acute symptom 12/28/17 22:12 The patient remains asymptomatic. The feeling of heart racing has resolved. Her symptoms are atypical, non exertion related, no changes from multiple prior EKG's The plan is for recheck troponin at 4 hours and refer for cardiology evaluation this week. 12/28/17 22:16 TSH and D-dimer are normal 12/28/17 23:12 Asymptomatic. HR 80 NSR no ectopy. 12/29/17 00:33 No ectopy. Waiting for repeat troponin. She continues to remain asymptomatic 12/29/17 00:50 The repeat troponin is normal. We discussed follow up and reasons for immediate return for evaluation. Medical Decision Making - Lab Data Result diagrams: 12/28/17 21:05 12/28/17 21:05 Disposition Disposition: Discharge Clinical Impression: Palpitations Disposition: Home, Self-Care Condition: (1) Good Instructions: Heart Palpitations (ED) Additional Instructions: Call Dr Sen first thing on Saturday for a recheck You have been referred to cardiology to be seen in the office this week Return immediately if any return of your symptoms Referrals: SAVAGE SCHULER M.D. [MEDICAL DOCTOR] - [facility] [Provider Group] Forms: Patient Portal Access Time of Disposition: 00:34 Quality - Quality Measures Quality Measures: N/A - Blood Pressure Screening Does Patient Have Any of the Following: No Blood Pressure Classification: Pre-Hypertensive BP Reading Systolic Measurement: 121 Diastolic Measurement: 75 Screening for High Blood Pressure: < Pre-Hypertensive BP, F/U Documented > [ G8950] Pre-Hypertensive Follow-up Interventions: Referral to alternative/primary care provider.
[2017-12-28 21:23] LABS: BASO % 0.5 % (0-6); EOS % 3.4 % (0-6); GRAN % 46.9 % (47-80); HEMATOCRIT 43.1 % (35.0-47.0); HEMOGLOBIN 14.7 gm/dl (11.6-16.0); LYMPH % 41.1 % (16-45); MEAN CELL VOLUME 87.4 fl (81-97); MEAN CORPUSCULAR HEMOGLOBIN 29.8 pg (27-33); MEAN CORPUSCULAR HGB CONC 34.1 g/dl (32-36); MEAN PLATELET VOLUME 8.6 fl (7.4-10.4); MONO % 8.1 % (0-9); PLATELET COUNT 279 K/uL (130-400); RED BLOOD COUNT 4.93 M/uL (3.80-5.40); RED CELL DISTRIBUTION WIDTH 14.2 % (11.5-14.5); WHITE BLOOD COUNT W/O DIFF 6.2 K/uL (4.2-12.2)
[2017-12-28] MEDS: LORAZEPAM 0.5 MG TABLET PO ONE (21:28)
[2017-12-28 21:32] LABS: BLOOD UREA NITROGEN 14 mg/dL (8-23); CREATININE 0.8 mg/dL (0.5-0.9); EST GLOMERULAR FILTRATION RATE > 60 mL/min
[2017-12-28 21:33] LABS: TOTAL PROTEIN 6.3 g/dL (6.6-8.7)
[2017-12-28 21:35] LABS: GLUCOSE,RANDOM 139 mg/dL (74-109)
[2017-12-28 21:36] LABS: PROTHROMBIN TIME (PATIENT) 9.9 SECONDS (9.5-12.1)
[2017-12-28 21:37] LABS: ALBUMIN 4.2 g/dL (4.0-5.0); ALT/SGPT 22 U/L (<33); AST/SGOT 19 U/L (10.0-35.0)
[2017-12-28 21:38] LABS: ALKALINE PHOSPHATASE 71 U/L (35-104)
--- NOTE | 2017-12-30 09:58 | RADIOLOGY REPORT ---
EXAM: CHEST, SINGLE VIEW HISTORY: TIGHTNESS IN MID CHEST, PALPITATION. TECHNIQUE: A single AP upright view of the chest was obtained. Comparison: Two view chest 06/14/17. FINDINGS: The heart size is stable, within normal limits. The lungs again appear hyperinflated consistent with COPD, probably with some bullous changes particularly in the upper lung on the right as before. No definite acute infiltrate is seen and no pleural effusion or pneumothorax evident. IMPRESSION: HYPERINFLATION BEFORE. NO DEFINITE ACUTE INFILTRATE SEEN. JOB NUMBER: [id number] [facility]
== END 2017-12-29 01:06 | disposition home or self-care (01) ==
LOC: ER 20:48
DX: R00.2 Palpitations (principal); R07.89 Other chest pain; R06.02 Shortness of breath; J44.9 Chronic obstructive pulmonary disease, unspecified; I10 Essential (primary) hypertension; Z87.891 Personal history of nicotine dependence
CPT/HCPCS: 71045; 80053; 83735; 84443; 84484; 85025; 85379; 85610; 85730; 93005; 93010; 99284

== ENCOUNTER 2018-03-02 10:42 | Inpatient (IN) | payer MEDICARE, OTHER ==
[2018-03-02] MEDS ORDERED: METHYLPREDNISOLONE PF 125MG/VIAL IVP ONE (10:48)
[2018-03-02] MEDS ORDERED: 0.9 % SODIUM CHLORIDE 1000ML 1,000 ML IV PRN ×2 (10:48→16:56)
[2018-03-02] MEDS ORDERED: IPRATROPIUM/ALBUTEROL (0.5MG/3MG) NEB INH ONE (10:48)
[2018-03-02 10:56] LABS: BASO % 0.5 % (0-6); EOS % 4.9 % (0-6); GRAN % 53.1 % (47-80); HEMATOCRIT 46.9 % (35.0-47.0); HEMOGLOBIN 15.6 gm/dl (11.6-16.0); LYMPH % 33.8 % (16-45); MEAN CELL VOLUME 88.5 fl (81-97); MEAN CORPUSCULAR HEMOGLOBIN 29.4 pg (27-33); MEAN CORPUSCULAR HGB CONC 33.3 g/dl (32-36); MEAN PLATELET VOLUME 8.1 fl (7.4-10.4); MONO % 7.7 % (0-9); PLATELET COUNT 339 K/uL (130-400); RED CELL DISTRIBUTION WIDTH 14.2 % (11.5-14.5); WHITE BLOOD COUNT W/O DIFF 8.3 K/uL (4.2-12.2)
--- NOTE | 2018-03-02 10:59 | Emergency Department Record ---
History of Present Illness - General Chief Complaint: Shortness of breath Stated Complaint: LISE Time Seen by Provider: 03/02/18 10:47 Source: Patient, RN notes reviewed Mode of Arrival: Ambulatory - History of Present Illness Onset/Timin -: Days(s) Associated Symptoms: Denies other symptoms Treatments Prior to Arrival: Bronchodilator - Related Data Home Oxygen Therapy: No Home Medications Medication Instructions Recorded Confirmed Last Taken Amoxicillin 500 mg PO TID 03/02/18 03/02/18 Unknown Diltiazem HCl [Cardizem LA] 180 mg PO DAILY 03/02/18 03/02/18 Unknown Previous Rx's Medication Instructions Recorded Albuterol Sulfate [Ventolin Hfa] 1 - 2 puff IH .EVERY 4-6 HOURS PRN 11/25/15 #1 inhaler Budesonide/Formoterol Fumarate 2 puff IH BID #1 hfa.aer.ad 12/19/16 [Symbicort 160-4.5 Mcg Inhaler] Ipratropium/Albuterol [Duoneb] 3 ml IH Q4HR #0 12/19/16 Ipratropium/Albuterol [Duoneb] 3 ml INH RESP.Q4H.WA ampul.neb 06/14/17 Allergies Allergy/AdvReac Type Severity Reaction Status Date / Time No Known Drug Allergies Allergy Verified 03/02/18 10:47 Travel Screening - Travel/Exposure Within Last 30 Days Have you traveled within the last 30 days?: No Past Medical History - SOCIAL HISTORY Smoking Status: Former smoker Drug Use: None - RESPIRATORY Hx Respiratory Disorders: Yes Hx Bronchitis: Yes Hx COPD: Yes - CARDIOVASCULAR Hx Cardio Disorders: Yes Hx Hypertension: Yes Hx Palpitations: Yes (tachycardia r/t hx of anxiety) - NEURO Hx Neuro Disorders: Yes Hx Dizziness: Yes - GI Hx GI Disorders: Yes Hx Abdominal Pain: Yes Hx Diverticulitis: Yes Hx Reflux: Yes Hx Irritable Bowel: Yes Hx Rectal Bleeding: Yes Hx of Polyps: Yes Comment:: colitis - Hx Genitourinary Disorders: Yes Hx Bladder Problem: Yes Hx UTI: Yes - ENDOCRINE Hx Endocrine Disorders: No Hx Diabetes: No Hx Thyroid Disease: No - MUSCULOSKELETAL Hx Musculoskeletal Disorders: Yes Hx Arthritis: Yes Hx Osteoporosis: Yes - PSYCH Hx Psych Problems: Yes Hx Anxiety: Yes - HEMATOLOGY/ONCOLOGY Hx Hematology/Oncology Disorders: No Hx Anemia: No Hx Blood Disorders: No Hx Bruising: No Hx Cancer: No Hx Clotting Problems: No Hx Sickle Cell Disease: No Hx Unexplained Bleeding: No Hx Blood Transfusions: No Hx Blood Transfusion Reaction: No Family Medical History Hx Cancer: Father, Mother *Cancer Comment: mother- lung ca, father-colon ca Hx Resp Disorders: Father, Grandparents Course Vital Signs 03/02/18 10:44 Pulse Rate 108 H Respiratory 32 H Rate Blood Pressure 187/120 Pulse Ox 90 L Medical Decision Making - Lab Data Result diagrams: 03/02/18 10:45 03/02/18 10:45 Disposition Clinical Impression: COPD with acute exacerbation Condition: (2) Stable Forms: Patient Portal Access Quality - Quality Measures Quality Measures: N/A - Blood Pressure Screening Does Patient Have Any of the Following: No Blood Pressure Classification: Hypertensive Reading Systolic Measurement: 187 Diastolic Measurement: 120 Screening for High Blood Pressure: < Pre-Hypertensive BP, F/U Documented > [ G8950] Pre-Hypertensive Follow-up Interventions: Referral to alternative/primary care provider.
[2018-03-02 11:05] LABS: BLOOD UREA NITROGEN 10 mg/dL (8-23); CREATININE 0.6 mg/dL (0.5-0.9); EST GLOMERULAR FILTRATION RATE > 60 mL/min
[2018-03-02 11:08] LABS: GLUCOSE,RANDOM 101 mg/dL (74-109)
--- NOTE | 2018-03-02 11:11 | Emergency Department Record ---
History of Present Illness - General Chief Complaint: Shortness of breath Stated Complaint: LISE Time Seen by Provider: 03/02/18 10:47 Source: Patient, RN notes reviewed Mode of Arrival: Ambulatory - History of Present Illness Initial Comments: dysnea started this am and she has used her proair twice without relief and came to the ED. No chest pain and she is currently on amoxil for bronchitis last couple of pills left for today. MD Complaint: Shortness of breath Onset/Timin -: Days(s) Associated Symptoms: Denies other symptoms Treatments Prior to Arrival: Bronchodilator - Related Data Home Oxygen Therapy: No Home Medications Medication Instructions Recorded Confirmed Last Taken Amoxicillin 500 mg PO TID 03/02/18 03/02/18 Unknown Diltiazem HCl [Cardizem LA] 180 mg PO DAILY 03/02/18 03/02/18 Unknown Previous Rx's Medication Instructions Recorded Albuterol Sulfate [Ventolin Hfa] 1 - 2 puff IH .EVERY 4-6 HOURS PRN 11/25/15 #1 inhaler Budesonide/Formoterol Fumarate 2 puff IH BID #1 hfa.aer.ad 12/19/16 [Symbicort 160-4.5 Mcg Inhaler] Ipratropium/Albuterol [Duoneb] 3 ml IH Q4HR #0 12/19/16 Ipratropium/Albuterol [Duoneb] 3 ml INH RESP.Q4H.WA ampul.neb 06/14/17 Allergies Allergy/AdvReac Type Severity Reaction Status Date / Time No Known Drug Allergies Allergy Verified 03/02/18 10:47 Travel Screening - Travel/Exposure Within Last 30 Days Have you traveled within the last 30 days?: No Review of Systems Reviewed: No additional complaints except as noted below Constitutional: Reports: As per HPI. Denies: Chills, Fever, Malaise, Night sweats, Weakness, Weight change Eyes: Reports: As per HPI. Denies: Eye discharge, Eye pain, Photophobia, Vision change ENT: Reports: As per HPI. Denies: Congestion, Dental pain, Ear pain, Epistaxis , Hearing loss, Throat pain Respiratory: Reports: As per HPI, Cough, Wheezes. Denies: Dyspnea, Hemoptysis, Stridor Cardiovascular: Reports: As per HPI. Denies: Arrhythmia, Chest pain, Dyspnea on exertion, Edema, Murmurs, Orthopnea, Palpitations, Paroxysmal nocturnal dyspnea, Rheumatic Fever, Syncope Endocrine: Reports: As per HPI. Denies: Fatigue, Heat or cold intolerance, Polydipsia, Polyuria Gastrointestinal: Reports: As per HPI. Denies: Abdominal pain, Constipation, Diarrhea, Hematemesis, Hematochezia, Melena, Nausea, Vomiting Genitourinary: Reports: As per HPI. Denies: Abnormal menses, Discharge, Dyspareunia, Dysuria, Frequency, Hematuria, Incontinence, Retention, Urgency Musculoskeletal: Reports: As per HPI. Denies: Arthralgia, Back pain, Gout, Joint swelling, Myalgia, Neck pain Skin: Reports: As per HPI. Denies: Bruising, Change in color, Change in hair/ nails, Lesions, Pruritus, Rash Neurological: Reports: As per HPI. Denies: Abnormal gait, Confusion, Headache, Numbness, Paresthesias, Seizure, Tingling, Tremors, Vertigo, Weakness Psychiatric: Reports: As per HPI. Denies: Anxiety, Auditory hallucinations, Depression, Homicidal thoughts, Suicidal thoughts, Visual hallucinations Hematological/Lymphatic: Reports: As per HPI. Denies: Anemia, Blood Clots, Easy bleeding, Easy bruising, Swollen glands Past Medical History - SOCIAL HISTORY Smoking Status: Former smoker Drug Use: None - RESPIRATORY Hx Respiratory Disorders: Yes Hx Bronchitis: Yes Hx COPD: Yes - CARDIOVASCULAR Hx Cardio Disorders: Yes Hx Hypertension: Yes Hx Palpitations: Yes (tachycardia r/t hx of anxiety) - NEURO Hx Neuro Disorders: Yes Hx Dizziness: Yes - GI Hx GI Disorders: Yes Hx Abdominal Pain: Yes Hx Diverticulitis: Yes Hx Reflux: Yes Hx Irritable Bowel: Yes Hx Rectal Bleeding: Yes Hx of Polyps: Yes Comment:: colitis - Hx Genitourinary Disorders: Yes Hx Bladder Problem: Yes Hx UTI: Yes - ENDOCRINE Hx Endocrine Disorders: No Hx Diabetes: No Hx Thyroid Disease: No - MUSCULOSKELETAL Hx Musculoskeletal Disorders: Yes Hx Arthritis: Yes Hx Osteoporosis: Yes - PSYCH Hx Psych Problems: Yes Hx Anxiety: Yes - HEMATOLOGY/ONCOLOGY Hx Hematology/Oncology Disorders: No Hx Anemia: No Hx Blood Disorders: No Hx Bruising: No Hx Cancer: No Hx Clotting Problems: No Hx Sickle Cell Disease: No Hx Unexplained Bleeding: No Hx Blood Transfusions: No Hx Blood Transfusion Reaction: No Family Medical History Hx Cancer: Father, Mother *Cancer Comment: mother- lung ca, father-colon ca Hx Resp Disorders: Father, Grandparents Physical Exam - General General Appearance: Alert, Oriented x3, Cooperative, Moderate distress - Head Head exam: Normal inspection - Eye Eye exam: Normal appearance, PERRL Pupils: Normal accommodation - ENT ENT exam: Normal exam, Mucous membranes moist, Normal external ear exam, Normal orophraynx, TM's normal bilaterally Ear exam: Normal external inspection. negative: External canal tenderness Nasal Exam: Normal inspection. negative: Discharge, Sinus tenderness Mouth exam: Normal external inspection, Tongue normal Teeth exam: Normal inspection. negative: Dental caries Throat exam: Normal inspection. negative: Tonsillar erythema, Tonsillar exudate - Neck Neck exam: Normal inspection, Full ROM. negative: Tenderness - Respiratory Respiratory exam: Decreased breath sounds, Respiratory distress, Wheezes - Cardiovascular Cardiovascular Exam: Regular rate, Normal rhythm, Normal heart sounds - GI/Abdominal GI/Abdominal exam: Soft, Normal bowel sounds. negative: Tenderness - Rectal Rectal exam: Deferred - exam: Deferred - Extremities Extremities exam: Normal inspection, Full ROM, Normal capillary refill. negative: Tenderness - Back Back exam: Reports: Normal inspection, Full ROM. Denies: Muscle spasm, Rash noted, Tenderness - Neurological Neurological exam: Alert, Normal gait, Oriented X3, Reflexes normal - Psychiatric Psychiatric exam: Normal affect, Normal mood - Skin Skin exam: Dry, Intact, Normal color, Warm Course Vital Signs 03/02/18 03/02/18 03/02/18 10:44 10:58 11:07 Temperature 97.3 F L Pulse Rate 108 H 89 Pulse Rate [ 84 Home Advisor ] Respiratory 32 H 32 H 24 Rate Blood Pressure 187/120 Blood Pressure 144/91 [Right Arm] Pulse Ox 90 L 95 98 - Reevaluation(s) Reevaluation #1: patient still very dyspneic on ambulation and has two word speech dyspnea 03/02/18 14:54 03/02/18 15:55 Reevaluation #2: Admit to Dr. Sen 03/02/18 15:57 Medical Decision Making - Lab Data Result diagrams: 03/02/18 10:45 03/02/18 10:45 Lab Results 03/02/18 03/02/18 03/02/18 Range/Units 10:45 10:45 10:45 WBC 8.3 (4.2-12.2) K/uL RBC 5.30 (3.80-5.40) M/uL Hgb 15.6 (11.6-16.0) gm/dl Hct 46.9 (35.0-47.0) % MCV 88.5 (81-97) fl MCH 29.4 (27-33) pg MCHC 33.3 (32-36) g/dl RDW 14.2 (11.5-14.5) % Plt Count 339 (130-400) K/uL MPV 8.1 (7.4-10.4) fl Gran % 53.1 (47-80) % Lymphocytes % 33.8 (16-45) % Monocytes % 7.7 (0-9) % Eosinophils % 4.9 (0-6) % Basophils % 0.5 (0-6) % APTT 24.4 L (24.5-39.1) SECONDS Sodium 143 (136-145) mmol/L Potassium 4.4 (3.4-4.5) mmol/L Chloride 104 (98-107) mmol/L Carbon Dioxide 27.0 (22-29) mmol/L Anion Gap 12.0 (7-16) BUN 10 (8-23) mg/dL Creatinine 0.6 (0.5-0.9) mg/dL Estimated GFR > 60 mL/min Random Glucose 101 (74-109) mg/dL Calcium 10.4 H (8.8-10.2) mg/dL Disposition Clinical Impression: COPD with acute exacerbation Decision to Admit: Admit from ER Condition: (2) Stable Forms: Patient Portal Access Time of Disposition: 15:58 Quality - Quality Measures Quality Measures: N/A - Blood Pressure Screening Does Patient Have Any of the Following: No Blood Pressure Classification: Hypertensive Reading Systolic Measurement: 187 Diastolic Measurement: 120 Screening for High Blood Pressure: < First Hypertensive BP, F/U Documented > [ G8950] First Hypertensive Follow-up Interventions: Referral to alternative/primary care provider.
[2018-03-02] MEDS ORDERED: AZITHROMYCIN 500 MG TABLET PO ONE (16:01)
[2018-03-02] MEDS ORDERED: CEFTRIAXONE 1GM/50ML BAG 1 GM/50 ML BAG IVPB ONE (16:01)
[2018-03-02] MEDS ORDERED: IPRATROPIUM/ALBUTEROL (0.5MG/3MG) NEB INH SCH (18:00)
[2018-03-02] MEDS ORDERED: ALBUTEROL SULFATE (0.083%) 2.5 MG/3 ML NEB INH PRN (18:00)
[2018-03-02] MEDS: METHYLPREDNISOLONE PF 125MG/VIAL IVP SCH (18:49)
[2018-03-02] MEDS: DILTIAZEM 180MG CR CAPSULE PO SCH (18:50)
[2018-03-02] MEDS: IPRATROPIUM/ALBUTEROL (0.5MG/3MG) NEB INH SCH (21:51)
[2018-03-02] MEDS ORDERED: CEFTRIAXONE SODIUM 1 GM in 0.9 % SODIUM CHLORIDE 100ML 100 ML IVPB SCH (22:00)
[2018-03-02] MEDS: ACETAMINOPHEN 325 MG TAB PO PRN (22:36)
[2018-03-03] MEDS: METHYLPREDNISOLONE PF 125MG/VIAL IVP SCH ×3 (01:09→17:06)
[2018-03-03] MEDS: IPRATROPIUM/ALBUTEROL (0.5MG/3MG) NEB INH SCH ×5 (05:57→21:30)
--- NOTE | 2018-03-03 07:17 | RADIOLOGY REPORT ---
EXAM: CHEST, TWO VIEWS HISTORY: DIFFICULTY IN BREATHING. TECHNIQUE: Frontal and lateral views of the chest were performed. Comparison: 12/28/17. FINDINGS: The heart size is normal. No pulmonary vascular congestion. No infiltrate or pleural effusion. The osseous structures are normal. IMPRESSION: NEGATIVE CHEST EXAMINATION. JOB NUMBER: [id number] MTDD
[2018-03-03] MEDS: DILTIAZEM 180MG CR CAPSULE PO SCH (09:35)
[2018-03-03] MEDS: CEFTRIAXONE 1GM/50ML BAG 1 GM/50 ML BAG IVPB SCH ×2 (09:37→21:15)
[2018-03-03] MEDS: IBUPROFEN 400 MG TABLET PO PRN (09:54)
[2018-03-03] MEDS ORDERED: ENOXAPARIN 40 MG/0.4 ML SYR SC SCH (10:00)
[2018-03-03] MEDS ORDERED: ATORVASTATIN 20 MG TABLET PO SCH (10:00)
[2018-03-03] MEDS ORDERED: AZITHROMYCIN 500 MG TABLET PO SCH (10:00)
--- NOTE | 2018-03-03 13:06 | Inpatient Certification ---
Inpatient Certification Admit to inpatient care: Based on my medical assessment, after consideration of patient's risk factors (age, co-morbidities and patient presenting symptoms and acuity), I expect that this patient will remain in the hospital greater than or equal to two midnights and that the services needed warrant inpatient care because: Patient Risk Factors: [copd] Estimated length of stay: [3] The patient may reasonably be expected to be discharged or transferred to a hospital within 96 hours after admission to [facility]. Services needed: [breathing treatments , IV antibiotics and IV solumedrol and oxygen therapy] Post hospital care (if known): [] I certify that my determination is in accordance with my understanding of Medicare requirements for reasonable and necessary inpatient services. 03/03/18 13:05
[2018-03-04] MEDS: IBUPROFEN 400 MG TABLET PO PRN (00:33)
[2018-03-04] MEDS: METHYLPREDNISOLONE PF 125MG/VIAL IVP SCH (00:34)
[2018-03-04] MEDS: ACETAMINOPHEN 325 MG TAB PO PRN (05:44)
[2018-03-04] MEDS: IPRATROPIUM/ALBUTEROL (0.5MG/3MG) NEB INH SCH (05:45)
--- NOTE | 2018-03-04 07:32 | Discharge Note ---
VTE H&P Assessment - Risk for VTE Risk for VTE: Yes Risk Level: Moderate Risk Assessment Date: 03/03/18 Risk Assessment Time: 08:00 VTE Orders Placed or Will Be Placed: Yes Discharge Medications - Discharge Medications Prescriptions: Azithromycin [Zithromax] 500 mg PO DAILY #7 tab Ipratropium/Albuterol [Duoneb] 3 ml INH RESP.Q4H.WA #120 ampul.neb Home Medications: Ambulatory Orders Albuterol Sulfate [Ventolin Hfa] 1 - 2 puff IH .EVERY 4-6 HOURS PRN #1 inhaler 11/25/15 [Last Taken 03/02/18] Budesonide/Formoterol Fumarate [Symbicort 160-4.5 Mcg Inhaler] 2 puff IH BID #1 hfa.aer.ad 12/19/16 [Last Taken 08/28/17] Ipratropium/Albuterol [Duoneb] 3 ml IH Q4HR #0 12/19/16 [Last Taken 08/28/17] Atorvastatin Calcium 20 mg PO QHS 08/28/17 [Last Taken 08/27/17] Diltiazem HCl [Cardizem LA] 180 mg PO QHS 03/02/18 [Last Taken Unknown] Acetaminophen [Tylenol 325Mg] 650 mg PO Q6H PRN tablet 03/04/18 [Last Taken Unknown] Azithromycin [Zithromax] 500 mg PO DAILY #7 tab 03/04/18 [Last Taken Unknown] Ipratropium/Albuterol [Duoneb] 3 ml INH RESP.Q4H.WA #120 ampul.neb 03/04/18 [ Last Taken Unknown] Discharge Note - Date Date of Discharge Note: 03/04/18 Disposition: Home, Self-Care Condition: (2) Stable Additional Instructions: follow up with dr. Sen on February Prescriptions: Azithromycin [Zithromax] 500 mg PO DAILY #7 tab Ipratropium/Albuterol [Duoneb] 3 ml INH RESP.Q4H.WA #120 ampul.neb Referrals: Rodney Sen D.O. [Primary Care Provider] - Forms: Patient Portal Access
--- NOTE | 2018-03-04 07:39 | Discharge Note ---
VTE H&P Assessment - Risk for VTE Risk for VTE: Yes Risk Level: Moderate Risk Assessment Date: 03/03/18 Risk Assessment Time: 08:00 VTE Orders Placed or Will Be Placed: Yes Discharge Medications - Discharge Medications Prescriptions: Azithromycin [Zithromax] 500 mg PO DAILY #7 tab Ipratropium/Albuterol [Duoneb] 3 ml INH RESP.Q4H.WA #120 ampul.neb Prednisone [Prednisone 10Mg] 10 mg PO ASDIR #30 tab Home Medications: Ambulatory Orders Albuterol Sulfate [Ventolin Hfa] 1 - 2 puff IH .EVERY 4-6 HOURS PRN #1 inhaler 11/25/15 [Last Taken 03/02/18] Budesonide/Formoterol Fumarate [Symbicort 160-4.5 Mcg Inhaler] 2 puff IH BID #1 hfa.aer.ad 12/19/16 [Last Taken 08/28/17] Ipratropium/Albuterol [Duoneb] 3 ml IH Q4HR #0 12/19/16 [Last Taken 08/28/17] Atorvastatin Calcium 20 mg PO QHS 08/28/17 [Last Taken 08/27/17] Diltiazem HCl [Cardizem LA] 180 mg PO QHS 03/02/18 [Last Taken Unknown] Acetaminophen [Tylenol 325Mg] 650 mg PO Q6H PRN tablet 03/04/18 [Last Taken Unknown] Azithromycin [Zithromax] 500 mg PO DAILY #7 tab 03/04/18 [Last Taken Unknown] Ipratropium/Albuterol [Duoneb] 3 ml INH RESP.Q4H.WA #120 ampul.neb 03/04/18 [ Last Taken Unknown] Prednisone [Prednisone 10Mg] 10 mg PO ASDIR #30 tab 03/04/18 [Last Taken Unknown ] Discharge Note - Date Date of Discharge Note: 03/04/18 Disposition: Home, Self-Care Condition: (2) Stable Additional Instructions: follow up with dr. Sen on February Prescriptions: Azithromycin [Zithromax] 500 mg PO DAILY #7 tab Ipratropium/Albuterol [Duoneb] 3 ml INH RESP.Q4H.WA #120 ampul.neb Referrals: Rodney Sen DAniyahOAniyah [Primary Care Provider] - Forms: Patient Portal Access
[2018-03-04] MEDS ORDERED: PREDNISONE 20 MG TAB PO SCH (08:00)
--- NOTE | 2018-03-04 09:30 | History and Physical Report ---
DATE OF ADMISSION: 03/02/2018 CHIEF COMPLAINT: Dyspnea and a cough. HISTORY OF PRESENT ILLNESS: This 67-year-old female presented to the emergency department short of breath. She had used her inhaler twice at home the morning of admission and she was very short of breath, came in for evaluation. She was evaluated in the emergency department by myself and admitted to the hospital for COPD exacerbation and acute bronchitis. She states that she was short of breath on and off for the last 2-3 days, worse on the day of admission. She is just finishing up the antibiotics that she got from me in the office about 10 days ago. She has a couple amoxicillin pills left. She is being treated for bronchitis through the office. Her chest x-ray revealed no infiltrates. She had wheezing in both lung ambrosio and her admitting diagnosis was acute exacerbation of COPD, acute bronchitis. PAST MEDICAL HISTORY: COPD, tobacco use (she stopped in October 2014), osteopenia, hypertension. PAST SURGICAL HISTORY: Hysterectomy, cholecystectomy, appendectomy, tubal ligation. MEDICATIONS: 1. Diltiazem 180 mg at h.s. 2. Atorvastatin 20 mg at h.s. 3. Amoxicillin 500 mg t.i.d., 1-2 pills left. 4. DuoNeb q.4 h. p.r.n. 5. Symbicort 160/4.5 two puffs b.i.d. 6. Ventolin inhaler 2 puffs q.4 h. p.r.n. She recently had her blood pressure medication switched around by Cardiology to diltiazem because they felt this would help her palpitations. ALLERGIES: No known drug allergies. FAMILY HISTORY: She is a former smoker, stopped in October 2014. Denies any alcohol or drug use. FAMILY HISTORY: Mother and father had cancer. Mother had lung cancer. Father had colon cancer. REVIEW OF SYSTEMS: HEENT: She has a slightly hoarse voice. She denies a sore throat. She states that she is coughing, mostly dry coughing but some clear sputum. She denies any hearing problems, swallowing problems. Cardiovascular: No chest pain. Respiratory: See Chief Complaint. She is short of breath with exertion but much worse since this morning when she came into the hospital on the day of admission. She has had a long-standing history of COPD but is not on home oxygen. Gastrointestinal: No nausea, vomiting, diarrhea, black stools, or bloody stools. Genitourinary: No dysuria, hematuria, frequency, or burning on urination. Musculoskeletal: She has arthritis in her joints. Neurological: No CVA, paralysis, or paresthesias. LEAF SIZE PICKER: No lumps in her breasts. No abnormal bleeding. Endocrine: No diabetes or thyroid disease. Integument: No rash, ulcers, change in moles, or yellow skin. PHYSICAL EXAMINATION: VITALS: Height 5 feet 4 inches, weight 170 pounds. Temperature 97.7, pulse 95, blood pressure 121/74, respiratory rate 16, pulse ox 94% on 2L. HEENT: Pupils are equal, round, and reactive to light and accommodation. Extraocular muscles are intact. Throat is clear. Nose is clear. Tympanic membranes are venegas. NECK: Supple. No jugular venous distention. No hepatojugular reflux. No carotid bruits. Thyroid is smooth. CARDIOVASCULAR: Regular rate and rhythm without murmurs, clicks, rubs, or gallops. RESPIRATORY: Wheezing bilaterally with pursed lip breathing. ABDOMEN: Soft, nontender. No hepatosplenomegaly, no masses, no tenderness. Bowel sounds are active. No bruits. EXTREMITIES: No pitting edema. No cyanosis, no clubbing. Full range of motion. Peripheral pulses are good. BREASTS: Exam deferred. GYNECOLOGICAL: Exam deferred. RECTAL: Exam deferred. NEUROLOGIC: Cranial nerves II-XII intact. No gross defects. Sensation normal, strength normal. Deep tendon reflexes equal bilaterally with Babinski negative. MENTAL STATUS: Alert and oriented x3. IMPRESSION: 1. Acute exacerbation of chronic obstructive pulmonary disease. 2. Acute bronchitis. 3. Status post hypertension. 4. Status post osteopenia. PLAN: IV Solu-Medrol 60 mg q.8 h. She received 1 dose of IV Solu-Medrol 125 in the emergency department. Also Rocephin 1 g q.12 h. and azithromycin 500 mg daily. Cautious fluid hydration. Continue her home medications. She is admitted to inpatient care and the inpatient certification will be documented in the chart. JANEL
--- NOTE | 2018-03-05 08:50 | Discharge Summary ---
DATE OF DISCHARGE: 03/04/2018 DISCHARGE DIAGNOSES: 1. Acute exacerbation of chronic obstructive pulmonary disease. 2. Acute bronchitis. ATTENDING PHYSICIAN: Rodney Sen DO REASON FOR HOSPITALIZATION: Dyspnea. This 67-year-old female presented to the emergency department short of breath. She stated that the dyspnea got severely worse on the day of admission. She was treated for bronchitis and was on the last couple of days of her amoxicillin. She was seen in the office approximately 10 days prior for bronchitis. She stated she used her inhalers twice prior to coming to the emergency department and was given multiple breathing treatments and reported oxygen and IV Solu-Medrol to settle her breathing down. She was admitted to the hospital for IV Solu-Medrol, IV antibiotics, and breathing treatments and oxygen therapy. SIGNIFICANT FINDINGS: Chest x-ray negative. EKG with no acute changes. Normal sinus rhythm. WBC 8300, hemoglobin 15.6, potassium 4.4, BUN 10, creatinine 0.6, troponin at 2 time points was negative. THERAPY PROVIDED: The patient was given oxygen therapy, IV fluids, IV Solu-Medrol, IV Rocephin, azithromycin, and breathing treatments of DuoNeb q.4 h., albuterol q.2 h. p.r.n. HOSPITAL COURSE: The patient gradually improved. Breathing much better on the day of discharge. We will check her for oxygen requirements before discharge. CONDITION ON DISCHARGE: Improved. DISCHARGE INSTRUCTIONS: Follow up with Dr. Sen on 03/10/2018. DISCHARGE MEDICATION: 1. Cardizem CD 180 mg daily. 2. Lipitor 20 mg daily. 3. Azithromycin 500 mg daily for 7 days. 4. Prednisone taper from 40 mg. 5. DuoNeb q.4 h. 6. Symbicort 2 puffs b.i.d. 7. Ventolin inhaler 2 puffs q.4 h. while awake. MTDD
== END 2018-03-04 09:30 | disposition home or self-care (01) ==
LOC: ER 10:42 → MEDSURG 16:52
PROVIDERS: ADMIT Emergency Medicine; ATTEND Emergency Medicine
DX: J44.1 Chronic obstructive pulmonary disease with (acute) exacerbation (principal); I10 Essential (primary) hypertension; K21.9 Gastro-esophageal reflux disease without esophagitis; K58.9 Irritable bowel syndrome, unspecified; K52.9 Noninfective gastroenteritis and colitis, unspecified; M19.90 Unspecified osteoarthritis, unspecified site; M81.0 Age-related osteoporosis without current pathological fracture; Z87.891 Personal history of nicotine dependence
CPT/HCPCS: 85025; 85730; 80048; 84484; 71046; 94640 ×2; 93005; 93010; J0696; 94618; 94760; 94761; 96374; 99285; J1650; J2930; J7512

== ENCOUNTER 2018-03-20 20:14 | Inpatient (IN) | payer MEDICARE, OTHER ==
--- NOTE | 2018-03-20 20:21 | Emergency Department Record ---
History of Present Illness - General Chief Complaint: Palpitations Stated Complaint: PALPITATIONS Time Seen by Provider: 03/20/18 20:15 Source: Patient, Family Mode of Arrival: Ambulatory Limitations: No limitations - History of Present Illness Initial Comments: 67 yo female presents with shortness of breath, palpitations that started in the last few hours. She had similar symptoms yesterday. She has COPD. She was admitted about two weeks ago for her COPD. She was treated with IV steroids and antibiotics along with her respiratory treatments. Her PCP is Dr Sen. She states she was doing better after discharge. Starting on Saturday she states her shortness of breath returned. No fevers. No chest pain. She has been having the palpitations at times. In January she had a stress test, ECHO and Holter Monitor. The Holter demonstrated a brief 8 beat run of SVT. 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 MD Complaint: Palpitations, Rapid heart beat -: Hour(s) Context: Occurred during rest Arrythmia History: Other Associated Symptoms: Cough, Shortness of breath Treatments Prior to Arrival: Calcium channel kalen - Related Data Home Medications Medication Instructions Recorded Confirmed Last Taken Cartia Xt 1 cap PO DAILY 03/20/18 03/20/18 Previous Rx's Medication Instructions Recorded Albuterol Sulfate [Ventolin Hfa] 1 - 2 puff IH .EVERY 4-6 HOURS PRN 11/25/15 #1 inhaler Budesonide/Formoterol Fumarate 2 puff IH BID #1 hfa.aer.ad 12/19/16 [Symbicort 160-4.5 Mcg Inhaler] Ipratropium/Albuterol [Duoneb] 3 ml IH Q4HR #0 12/19/16 Acetaminophen [Tylenol 325Mg] 650 mg PO Q6H PRN tablet 03/04/18 Ipratropium/Albuterol [Duoneb] 3 ml INH RESP.Q4H.WA #120 ampul.neb 03/04/18 Allergies Allergy/AdvReac Type Severity Reaction Status Date / Time No Known Drug Allergies Allergy Verified 03/02/18 10:47 Review of Systems Constitutional: Denies: Chills, Fever, Malaise, Weakness Eyes: Denies: Eye discharge ENT: Denies: Congestion, Throat pain Respiratory: Reports: Cough, Dyspnea, Wheezes. Denies: Hemoptysis Cardiovascular: Reports: Palpitations. Denies: Chest pain, Edema, Syncope Endocrine: Denies: Fatigue, Polydipsia, Polyuria Gastrointestinal: Denies: Abdominal pain, Diarrhea, Nausea, Vomiting Genitourinary: Denies: Dysuria, Urgency Musculoskeletal: Denies: Arthralgia, Back pain, Joint swelling, Myalgia Skin: Denies: Bruising, Change in color, Rash Neurological: Denies: Headache Psychiatric: Denies: Anxiety Hematological/Lymphatic: Denies: Easy bleeding, Easy bruising Past Medical History - SOCIAL HISTORY Smoking Status: Former smoker - RESPIRATORY Hx Respiratory Disorders: Yes Hx Bronchitis: Yes Hx COPD: Yes - CARDIOVASCULAR Hx Cardio Disorders: Yes Hx Hypertension: Yes Hx Palpitations: Yes (tachycardia r/t hx of anxiety) - NEURO Hx Neuro Disorders: Yes Hx Dizziness: Yes - GI Hx GI Disorders: Yes Hx Abdominal Pain: Yes Hx Diverticulitis: Yes Hx Reflux: Yes Hx Irritable Bowel: Yes Hx Rectal Bleeding: Yes Hx of Polyps: Yes Comment:: colitis - Hx Genitourinary Disorders: Yes Hx Bladder Problem: Yes Hx UTI: Yes - ENDOCRINE Hx Endocrine Disorders: No Hx Diabetes: No Hx Thyroid Disease: No - MUSCULOSKELETAL Hx Musculoskeletal Disorders: Yes Hx Arthritis: Yes Hx Osteoporosis: Yes - PSYCH Hx Psych Problems: Yes Hx Anxiety: Yes - HEMATOLOGY/ONCOLOGY Hx Hematology/Oncology Disorders: No Hx Anemia: No Hx Blood Disorders: No Hx Bruising: No Hx Cancer: No Hx Clotting Problems: No Hx Sickle Cell Disease: No Hx Unexplained Bleeding: No Hx Blood Transfusions: No Hx Blood Transfusion Reaction: No Family Medical History Hx Cancer: Father, Mother *Cancer Comment: mother- lung ca, father-colon ca Hx Resp Disorders: Father, Grandparents Physical Exam - General General Appearance: Alert, Oriented x3, Cooperative, No acute distress Limitations: No limitations - Head Head exam: Atraumatic, Normal inspection - Eye Eye exam: Normal appearance, PERRL. negative: Conjunctival injection, Scleral icterus - ENT ENT exam: Normal exam, Mucous membranes moist, Normal orophraynx Ear exam: Normal external inspection Nasal Exam: Normal inspection Mouth exam: Normal external inspection - Neck Neck exam: Normal inspection. negative: Lymphadenopathy, Tenderness - Respiratory Respiratory exam: Decreased breath sounds, Prolonged expiratory, Wheezes. negative: Normal lung sounds bilaterally, Accessory muscle use, Rales, Respiratory distress, Rhonchi, Stridor - Cardiovascular Cardiovascular Exam: Normal rhythm, Normal heart sounds, Tachycardia - GI/Abdominal GI/Abdominal exam: Soft. negative: Tenderness - Rectal Rectal exam: Deferred - exam: Deferred - Extremities Extremities exam: Normal inspection. negative: Pedal edema, Tenderness - Back Back exam: Denies: CVA tenderness (R), CVA tenderness (L) - Neurological Neurological exam: Alert, Oriented X3 - Psychiatric Psychiatric exam: Normal affect, Normal mood. negative: Agitated, Anxious - Skin Skin exam: Dry, Intact, Normal color, Warm Course - Reevaluation(s) Reevaluation #1: EKG 20: Sinus rhythm rate is 95, intervals normal axis L, ST normal (mild artifact), No changes from prior EMR reviewed ECHO 02/03/18: EF 55-60%, Grade I diastolic dysfunction, normal pulmonary pressures Stress Test 02/03/18: Asymptomatic 5 mets, Poor physical fitness, Holter 01/15/18 One episode of SVT lasting 8 beats otherwise normal DC Summary 03/04/18 COPD exacerbation. 03/20/18 20:31 03/20/18 20:55 The labs were reviewed No acute changes on the CBC,CMP,Troponin,BNP 03/20/18 20:56 The CXR was reviewed. Bilateral emphysema changes. 03/20/18 22:[address] scan is consistent with bilateral scattered pulmonary emboli Heparin was ordered with a bolus and drip. The patient is clinically stable and relaxed. 03/20/18 22:40 The cause was discussed with Phuong Lutz [employer] for admission The patient is stable for admission, stable vitals, no signs of heart strain on EKG, normal troponin 03/21/18 00:32 Medical Decision Making - Lab Data Result diagrams: 03/20/18 20:20 03/20/18 20:20 Critical Care Time Critical Care Time: Yes Total Critical Care Time: 65 Disposition Disposition: Admit Clinical Impression: Heart palpitations, COPD with acute exacerbation Dyspnea Qualifiers: Dyspnea type: unspecified Qualified Code(s): R06.00 - Dyspnea, unspecified Pulmonary emboli Qualifiers: Pulmonary embolism type: unspecified Chronicity: acute Acute cor pulmonale presence: without acute cor pulmonale Qualified Code(s): I26.99 - Other pulmonary embolism without acute cor pulmonale Disposition: Still a Patient at [facility] Decision to Admit: Admit from ER Decision to Admit Date: 03/20/18 Decision to Admit Time: 22:30 Time Discussed w/Accepting Physician: 22:40 Condition: (2) Stable Time of Disposition: 21:37 Quality - Quality Measures Quality Measures: N/A - Blood Pressure Screening Does Patient Have Any of the Following: Active Dx of HTN Blood Pressure Classification: Pre-Hypertensive BP Reading Systolic Measurement: 155 Diastolic Measurement: 87 Screening for High Blood Pressure: Patient Exclusion, Hx of HTN [[id number]]
[2018-03-20 20:27] LABS: BASO % 0.6 % (0-6); EOS % 3.5 % (0-6); HEMATOCRIT 45.8 % (35.0-47.0); HEMOGLOBIN 15.3 gm/dl (11.6-16.0); LYMPH % 28.2 % (16-45); MEAN CELL VOLUME 90.2 fl (81-97); MEAN CORPUSCULAR HEMOGLOBIN 30.1 pg (27-33); MEAN CORPUSCULAR HGB CONC 33.4 g/dl (32-36); MEAN PLATELET VOLUME 8.4 fl (7.4-10.4); MONO % 7.7 % (0-9); PLATELET COUNT 214 K/uL (130-400); RED BLOOD COUNT 5.08 M/uL (3.80-5.40); RED CELL DISTRIBUTION WIDTH 14.9 % (11.5-14.5); WHITE BLOOD COUNT W/O DIFF 6.6 K/uL (4.2-12.2)
[2018-03-20] MEDS ORDERED: IPRATROPIUM/ALBUTEROL (0.5MG/3MG) NEB INH ONE (20:31)
[2018-03-20 20:36] LABS: BLOOD UREA NITROGEN 12 mg/dL (8-23); CREATININE 0.9 mg/dL (0.5-0.9); EST GLOMERULAR FILTRATION RATE > 60 mL/min
[2018-03-20 20:37] LABS: TOTAL PROTEIN 7.1 g/dL (6.6-8.7)
[2018-03-20 20:39] LABS: GLUCOSE,RANDOM 160 mg/dL (74-109)
[2018-03-20 20:40] LABS: INR 0.9; PARTIAL THROMBOPLASTIN TIME 22.4 SECONDS (24.5-39.1); PROTHROMBIN TIME (PATIENT) 9.4 SECONDS (9.5-12.1)
[2018-03-20 20:41] LABS: ALT/SGPT 47 U/L (<33); AST/SGOT 28 U/L (10.0-35.0)
[2018-03-20 20:42] LABS: ALB/GLOB RATIO 1.5 (1.1-1.8); ALBUMIN 4.3 g/dL (4.0-5.0); ALKALINE PHOSPHATASE 79 U/L (45-87)
[2018-03-20 20:44] LABS: NTpro B-NATRIURETIC PEPTIDE 47.84 pg/mL (<125)
[2018-03-20] MEDS ORDERED: METHYLPREDNISOLONE PF 125MG/VIAL IVP ONE (20:59)
[2018-03-20] MEDS ORDERED: HEPARIN SODIUM 1000 UNIT/1 ML 10ML VIAL IVP ONE (22:24)
[2018-03-20] MEDS ORDERED: HEPARIN SODIUM/D5W 25,000 UNITS/500 ML BAG IV SCH ×3 (22:30→23:45)
[2018-03-20] MEDS ORDERED: IPRATROPIUM/ALBUTEROL (0.5MG/3MG) NEB INH PRN (23:45)
[2018-03-21] MEDS ORDERED: LORAZEPAM 0.5 MG TABLET PO ONE (04:14)
--- NOTE | 2018-03-21 07:22 | RADIOLOGY REPORT ---
EXAM: PORTABLE CHEST HISTORY: INTERMITTENT PALPITATIONS FOR THREE WEEKS. TECHNIQUE: A single mobile upright view of the chest was obtained. Comparison: Two view chest radiographic examination dated 03/02/18. FINDINGS: The heart is at the upper limits of normal in size. No pulmonary venous hypertension is seen. The lungs again appear emphysematous most pronounced in the right upper lung. No new confluent air space opacity is seen. Minor linear atelectasis is suggested in the left lung base. No costophrenic angle blunting or pneumothorax. The thoracic aorta remains tortuous and atherosclerotic. IMPRESSION: 1. NO CONVINCING EVIDENCE OF ACUTE CARDIOPULMONARY DISEASE. 2. BILATERAL EMPHYSEMA REDEMONSTRATED. 3. MINOR LINEAR ATELECTASIS IN THE LATERAL LEFT BASE. JOB NUMBER: [id number] [facility]
--- NOTE | 2018-03-21 07:37 | CT ANGIOGRAM REPORT ---
EXAM: CT ANGIOGRAM OF THE CHEST HISTORY: LIGHTHEADEDNESS. PALPITATIONS INTERMITTENTLY FOR THREE WEEKS. SHORTNESS OF BREATH. TECHNIQUE: Routine CT angiogram of the chest was performed utilizing a pulmonary embolus protocol with 70 ml of Omnipaque 350 utilized. Maximum intensity projection reformatted images are generated in multiple planes and reviewed. Comparison: Same day portable chest. CT angiogram of the chest dated 02/20/16. FINDINGS: The heart is at the upper limits of normal in size. There is no gross evidence of right heart stain. Opacification of the pulmonary arteries is satisfactory for interpretation. There are luminal filling defects within the right lower lobe and mid lobe arteries extending into multiple segmental arteries. There are also luminal filling defects within several segmental arteries of the left lower lobe as well as the lingula. Small luminal filling defects are suggested in the apical and posterior segmental arteries of the left upper lobe. There is diffuse atherosclerosis without focal aneurysmal dilatation nor dissection. No mediastinal nor hilar mass/lymphadenopathy is seen. No pericardial effusion. The central airways are clear. Centrilobular emphysema is noted bilaterally most pronounced in the right upper lobe. Linear atelectasis versus scarring is scattered in each lung base. Infiltrate is less likely. There is bilateral adrenal gland enlargement left greater than right, unchanged consistent with hyperplasia or adenomatous change. The enlarged portion of the left adrenal gland measures 2.0 x 1.2 cm. A small cortical cyst arises from the posterior upper pole of the right kidney, stable. This measures 11 mm in diameter. No new lytic or blastic bone lesion. Degenerative changes are scattered throughout the visualized spine. IMPRESSION: 1. ACUTE BILATERAL PULMONARY EMBOLI, DESCRIBED ABOVE. NO DEFINITE EVIDENCE OF RIGHT HEART STRAIN. 2. BILATERAL EMPHYSEMA. PATCHY PREDOMINANTLY LINEAR OPACITIES IN THE LUNG BASES LIKELY RELATING TO ATELECTASIS, SCAR OR LESS LIKELY INFILTRATE. 3. STABLE BILATERAL ADRENAL ENLARGEMENT. 4. STABLE RIGHT RENAL CYST. JOB NUMBER: [id number] [facility]
[2018-03-21] MEDS: BREO (FLUTICASONE/VILANTEROL) 200MCG/25MCG INHALER INH SCH (10:04)
--- NOTE | 2018-03-21 10:41 | History & Physical ---
History of Present Illness - Date of Service Date of Service for History & Physical: 03/21/18 - History of Present Illness Admitting Diagnosis: pulmonary emboli History of Present Illness: 67 year old female presented to ED last night for increasing shortness of breath , dizziness, and palpitations. Patient states the symptoms had started earlier in the day. Patient has a history of COPD and was recently admitted 2 weeks ago and treated with steroids and antibiotics. Patient states her symptoms had resolved after that admission and the current shortness of breath was new onset. Patient reported that the current symptoms felt different to her than a COPD exacerbation. Patient denied fever or chest pain. Patient denies any recent travel, but does report significant decrease in normal activity since recent hospitalization, as she has slowly been regaining her strength. ECHO 02/03/18: EF 55-60%, Grade I diastolic dysfunction, normal pulmonary pressures Stress Test 02/03/18: Asymptomatic 5 mets, Poor physical fitness, Holter 01/15/18 One episode of SVT lasting 8 beats otherwise normal Patient's other medical history includes COPD, HTN, and a history of colitis. PCP: Dr. Sen Mold Capper: Dr. Kee ED Course: EKG: NSR rate 95, ST normal, no changes from prior CBC, CMP, Troponin, BNP unremarkable Chest x-ray: bilateral emphysema changes Chest CTA: bilateral scattered pulmonary emboli Heparin drip started 03/21/18: Patient A&O x 4, sitting comfortably on edge of bed. Patient in no respiratory distress, on room air. Discussed case with PCP, Dr. Sen. Will transition patient to oral Eliquis at this time and follow-up outpatient for further ECHO and follow-up. Venous doppler of legs negative for DVT. 2 Travel Screening - Travel/Exposure Within Last 30 Days Have you traveled within the last 30 days?: No - Travel/Exposure Within Last Year Have you traveled outside the [place] in the last year?: No - Additonal Travel Details Have you been exposed to anyone with a communicable illness?: Yes Exposure Details:: Nephew has TB but hasn't seen since the summer. - Travel Symptoms Symptom Screening: None Review of Systems Reviewed: No additional complaints except as noted below Constitutional: Denies: Chills, Fever, Malaise, Weakness Eyes: Denies: Eye discharge ENT: Denies: Congestion, Throat pain Respiratory: Reports: Cough, Dyspnea, Wheezes. Denies: Hemoptysis Cardiovascular: Reports: Palpitations. Denies: Chest pain, Edema, Syncope Endocrine: Denies: Fatigue, Polydipsia, Polyuria Gastrointestinal: Denies: Abdominal pain, Diarrhea, Nausea, Vomiting Genitourinary: Denies: Dysuria, Urgency Musculoskeletal: Denies: Arthralgia, Back pain, Joint swelling, Myalgia Skin: Denies: Bruising, Change in color, Rash Neurological: Denies: Headache Psychiatric: Denies: Anxiety Hematological/Lymphatic: Denies: Easy bleeding, Easy bruising Past Medical History - SOCIAL HISTORY Smoking Status: Former smoker - RESPIRATORY Hx Respiratory Disorders: Yes Hx Bronchitis: Yes Hx COPD: Yes - CARDIOVASCULAR Hx Cardio Disorders: Yes Hx Hypertension: Yes Hx Palpitations: Yes (tachycardia r/t hx of anxiety) - NEURO Hx Neuro Disorders: Yes Hx Dizziness: Yes - GI Hx GI Disorders: Yes Hx Abdominal Pain: Yes Hx Diverticulitis: Yes Hx Reflux: Yes Hx Irritable Bowel: Yes Hx Rectal Bleeding: Yes Hx of Polyps: Yes Comment:: colitis - Hx Genitourinary Disorders: Yes Hx Bladder Problem: Yes Hx UTI: Yes - ENDOCRINE Hx Endocrine Disorders: No Hx Diabetes: No Hx Thyroid Disease: No - MUSCULOSKELETAL Hx Musculoskeletal Disorders: Yes Hx Arthritis: Yes Hx Osteoporosis: Yes - PSYCH Hx Psych Problems: Yes Hx Anxiety: Yes - HEMATOLOGY/ONCOLOGY Hx Hematology/Oncology Disorders: No Hx Anemia: No Hx Blood Disorders: No Hx Bruising: No Hx Cancer: No Hx Clotting Problems: No Hx Sickle Cell Disease: No Hx Unexplained Bleeding: No Hx Blood Transfusions: No Hx Blood Transfusion Reaction: No Family Medical History Hx Cancer: Father, Mother *Cancer Comment: mother- lung ca, father-colon ca Hx Resp Disorders: Father, Grandparents H&P Meds/Allergies - Allergies Allergies: Allergies Allergy/AdvReac Type Severity Reaction Status Date / Time No Known Drug Allergies Allergy Verified 03/02/18 10:47 - Home Medications Home Medications Medication Instructions Recorded Confirmed Last Taken Cartia Xt 180 mg PO DAILY 03/20/18 03/21/18 03/20/18 Aspirin [Aspirin EC] 81 mg PO QHS 03/21/18 03/21/18 Unknown Ipratropium/Albuterol [Duoneb] 3 ml IH Q4H PRN 03/21/18 03/21/18 Unknown Previous Rx's Medication Instructions Recorded Albuterol Sulfate [Ventolin Hfa] 1 - 2 puff IH .EVERY 4-6 HOURS PRN 11/25/15 #1 inhaler Budesonide/Formoterol Fumarate 2 puff IH BID #1 hfa.aer.ad 12/19/16 [Symbicort 160-4.5 Mcg Inhaler] Acetaminophen [Tylenol 325Mg] 650 mg PO Q6H PRN tablet 03/04/18 - Active Medications Active Medications: Current Medications Albuterol/Ipratropium (Duoneb) 3 ml INH RESP.Q6H PRN PRN Reason: WHEEZING Apixaban (Eliquis) 10 mg PO BID ELVIS Atorvastatin Calcium (Lipitor) 20 mg PO QHS ELVIS Diltiazem HCl (Cardizem Cd) 180 mg PO DAILY ELVIS Physical Exam - Vital Signs Vital Signs: Vital Signs - Last 24 Hrs Temp Pulse Pulse Pulse Resp BP BP 03/21/18 10:12 115 H 18 03/21/18 09:49 97.7 F 113 H 15 123/72 03/21/18 09:00 113 H 15 03/21/18 06:00 98.1 F 101 H 17 132/79 03/21/18 02:00 97.9 F 103 H 16 121/80 03/20/18 23:45 98.2 F 93 H 17 144/83 03/20/18 23:31 90 14 117/77 03/20/18 22:28 96 H 20 117/74 03/20/18 21:19 90 28 H 110/78 03/20/18 20:32 102 H 26 H 03/20/18 20:17 97.9 F 102 H 32 H 155/87 Pulse Ox 03/21/18 10:12 95 03/21/18 09:49 96 03/21/18 09:00 03/21/18 06:00 93 L 03/21/18 02:00 95 03/20/18 23:45 94 L 03/20/18 23:31 92 L 03/20/18 22:28 94 L 03/20/18 21:19 95 03/20/18 20:32 95 03/20/18 20:17 94 L - General General Appearance: Alert, Oriented x3, Cooperative, No acute distress Limitations: No limitations - Head Head exam: Atraumatic, Normal inspection - Eye Eye exam: Normal appearance, PERRL. negative: Conjunctival injection, Scleral icterus - ENT ENT exam: Normal exam, Mucous membranes moist, Normal orophraynx Ear exam: Normal external inspection Nasal Exam: Normal inspection Mouth exam: Normal external inspection - Neck Neck exam: Normal inspection. negative: Lymphadenopathy, Tenderness - Respiratory Respiratory exam: Decreased breath sounds, Prolonged expiratory, Wheezes. negative: Normal lung sounds bilaterally, Accessory muscle use, Rales, Respiratory distress, Rhonchi, Stridor - Cardiovascular Cardiovascular Exam: Normal rhythm, Normal heart sounds, Tachycardia Peripheral Pulses: 2+: Radial (R), Radial (L), Dorsalis Pedis (R), Dorsalis Pedis (L) - GI/Abdominal GI/Abdominal exam: Soft, Normal bowel sounds. negative: Tenderness - Rectal Rectal exam: Deferred - exam: Deferred - Extremities Extremities exam: Normal inspection. negative: Calf tenderness, Pedal edema, Tenderness - Back Back exam: Denies: CVA tenderness (R), CVA tenderness (L) - Neurological Neurological exam: Alert, Oriented X3 - Psychiatric Psychiatric exam: Normal affect, Normal mood. negative: Agitated, Anxious - Skin Skin exam: Dry, Intact, Normal color, Warm Results - Labs Result Diagrams: 03/20/18 20:20 03/20/18 20:20 Labs Last 24 Hours: Laboratory Results - last 24 hr 03/20/18 03/20/18 03/20/18 20:20 20:20 20:20 WBC 6.6 RBC 5.08 Hgb 15.3 Hct 45.8 MCV 90.2 MCH 30.1 MCHC 33.4 RDW 14.9 H Plt Count 214 MPV 8.4 Gran % 60.0 Lymphocytes % 28.2 Monocytes % 7.7 Eosinophils % 3.5 Basophils % 0.6 PT 9.4 L INR 0.9 APTT 22.4 L Sodium 141 Potassium 3.9 Chloride 101 Carbon Dioxide 27.0 Anion Gap 13.0 BUN 12 Creatinine 0.9 Estimated GFR > 60 Random Glucose 160 H Calcium 10.4 H Total Bilirubin 0.70 AST 28 ALT 47 H Alkaline Phosphatase 79 Troponin T < 0.010 NT-Pro-B Natriuret Pep 47.84 Total Protein 7.1 Albumin 4.3 Globulin 2.8 Albumin/Globulin Ratio 1.5 03/21/18 03/21/18 03/21/18 05:25 05:25 11:25 WBC RBC Hgb Hct MCV MCH MCHC RDW Plt Count MPV Gran % Lymphocytes % Monocytes % Eosinophils % Basophils % PT INR APTT 96.8 H Cancelled Sodium Potassium Chloride Carbon Dioxide Anion Gap BUN Creatinine Estimated GFR Random Glucose Calcium Total Bilirubin AST ALT Alkaline Phosphatase Troponin T < 0.010 NT-Pro-B Natriuret Pep Total Protein Albumin Globulin Albumin/Globulin Ratio VTE H&P Assessment - Risk for VTE Risk for VTE: Yes Risk Level: Moderate Risk Assessment Date: 03/21/18 Risk Assessment Time: 10:41 VTE Orders Placed or Will Be Placed: No VTE Reason for No Prophylaxis: Contraindicated (Will be starting Eliquis 10mg BID for PE treatment) Plan - Inpatient Certification Inpatient Certification: Admit to inpatient care: Based on my medical assessment, after consideration of patient's risk factors (age, co-morbidities and patient presenting symptoms and acuity), I expect that this patient will remain in the hospital greater than or equal to two midnights and that the services needed warrant inpatient care because: Patient Risk Factors: [age, pulmonary embolism, history of COPD] Estimated length of stay: The patient may reasonably be expected to be discharged or transferred to a hospital within 24-48 hours after admission to [facility]. Services needed: [Cardiac monitoring, anticoagulant initiation, venous dopplers of legs] Post hospital care (if known): I certify that my determination is in accordance with my understanding of Medicare requirements for reasonable and necessary inpatient services. 03/21/18 10:42 - Detailed Diagnosis and Plan (1) Pulmonary emboli Current Visit: Yes Status: Acute Qualifiers: Pulmonary embolism type: unspecified Chronicity: acute Acute cor pulmonale presence: without acute cor pulmonale Qualified Code(s): I26.99 - Other pulmonary embolism without acute cor pulmonale Base Code: I26.99 - OTHER PULMONARY EMBOLISM WITHOUT ACUTE COR PULMONALE Comment: 03/21/18: -CTA Chest: scattered bilateral pulmonary embolism -Venous dopplers of the legs: negative for DVT bilaterally -Heparin drip started in ED, will transition to Eliquis 10mg BID x 7 days -Troponin negative -EKG unchanged -security monitor: sinus rhythm to sinus tach -Patient asymptomatic, denies shortness of breath or palpitations at this time -Will follow-up outpatient for ECHO (2) Palpitations Current Visit: Yes Status: Acute Base Code: R00.2 - PALPITATIONS Comment: 03/21/18: -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
[2018-03-21] MEDS: DILTIAZEM 180MG CR CAPSULE PO SCH (10:45)
[2018-03-21] MEDS: APIXABAN 5MG TABLET PO SCH ×2 (10:45→21:16)
--- NOTE | 2018-03-21 12:30 | US VENOUS DOPPLER REPORT ---
EXAM: BILATERAL LOWER EXTREMITY VENOUS DUPLEX ULTRASOUND HISTORY: PULMONARY EMBOLI. TECHNIQUE: Routine bilateral lower extremity venous Duplex ultrasound was obtained. Comparison: CT angiogram of the chest 03/20/18. FINDINGS: Normal color flow and augmentation in the right external iliac vein. Normal color flow, augmentation and compressibility of the right common femoral vein, proximal/mid/distal femoral vein, and popliteal vein. Color flow is demonstrated within the right posterior tibial vein, right peroneal vein, and right anterior tibial vein. Normal compressibility, color flow and augmentation within the left external iliac vein, left common femoral vein, proximal/mid/distal femoral vein, and common popliteal vein. Color flow within the left posterior tibial vein, peroneal vein, and anterior tibial vein. IMPRESSION: NO EVIDENCE OF DEEP VENOUS THROMBOSIS IN THE RIGHT OR LEFT LOWER EXTREMITIES. JOB NUMBER: [id number] MTDD
[2018-03-21] MEDS ORDERED: ATORVASTATIN 20 MG TABLET PO SCH (22:00)
[2018-03-22 06:38] LABS: BASO % 0.1 % (0-6); EOS % 0.7 % (0-6); GRAN % 71.5 % (47-80); HEMATOCRIT 39.9 % (35.0-47.0); HEMOGLOBIN 12.9 gm/dl (11.6-16.0); LYMPH % 18.6 % (16-45); MEAN CELL VOLUME 90.1 fl (81-97); MEAN CORPUSCULAR HEMOGLOBIN 29.1 pg (27-33); MEAN CORPUSCULAR HGB CONC 32.3 g/dl (32-36); MEAN PLATELET VOLUME 8.8 fl (7.4-10.4); MONO % 9.1 % (0-9); PLATELET COUNT 203 K/uL (130-400); RED BLOOD COUNT 4.43 M/uL (3.80-5.40); RED CELL DISTRIBUTION WIDTH 14.9 % (11.5-14.5); WHITE BLOOD COUNT W/O DIFF 10.3 K/uL (4.2-12.2)
[2018-03-22] MEDS: BREO (FLUTICASONE/VILANTEROL) 200MCG/25MCG INHALER INH SCH (09:20)
[2018-03-22] MEDS: DILTIAZEM 180MG CR CAPSULE PO SCH (09:33)
[2018-03-22] MEDS: APIXABAN 5MG TABLET PO SCH (09:33)
[2018-03-22] MEDS ORDERED: CARTIA XT 180 MG PO SCH (10:00)
--- NOTE | 2018-03-22 10:13 | Discharge Summary ---
Providers Discharge Summary Date: 03/22/18 Date of admission: 03/20/18 23:32 Expected Date of Discharge: 03/22/18 Attending physician: BRITTANIE MURRELL Primary care physician: Rodney Sen Physical Exam - Vital Signs Vital Signs: Vital Signs - Last 24 Hrs Temp Pulse Pulse Pulse Resp BP Pulse Ox 03/22/18 09:23 91 H 18 95 03/22/18 08:36 88 20 03/22/18 05:00 97.7 F 84 16 138/76 03/21/18 20:23 98.0 F 98 H 17 123/71 93 L 03/21/18 17:00 97.3 F L 92 H 90 17 105/73 95 03/21/18 13:00 123/72 03/21/18 10:12 115 H 18 95 - General General Appearance: Alert, Oriented x3, Cooperative, No acute distress Limitations: No limitations - Head Head exam: Atraumatic, Normal inspection - Eye Eye exam: Normal appearance, PERRL. negative: Conjunctival injection, Scleral icterus - ENT ENT exam: Normal exam, Mucous membranes moist, Normal orophraynx Ear exam: Normal external inspection Nasal Exam: Normal inspection Mouth exam: Normal external inspection - Neck Neck exam: Normal inspection. negative: Lymphadenopathy, Tenderness - Respiratory Respiratory exam: Decreased breath sounds, Prolonged expiratory, Wheezes. negative: Normal lung sounds bilaterally, Accessory muscle use, Rales, Respiratory distress, Rhonchi, Stridor - Cardiovascular Cardiovascular Exam: Regular rate, Normal rhythm, Normal heart sounds Peripheral Pulses: 2+: Radial (R), Radial (L), Dorsalis Pedis (R), Dorsalis Pedis (L) - GI/Abdominal GI/Abdominal exam: Soft, Normal bowel sounds. negative: Tenderness - Rectal Rectal exam: Deferred - exam: Deferred - Extremities Extremities exam: Normal inspection. negative: Calf tenderness, Pedal edema, Tenderness - Back Back exam: Denies: CVA tenderness (R), CVA tenderness (L) - Neurological Neurological exam: Alert, Oriented X3 - Psychiatric Psychiatric exam: Normal affect, Normal mood. negative: Agitated, Anxious - Skin Skin exam: Dry, Intact, Normal color, Warm Hospitalization - Hospitalization Admission Diagnosis: pulmonary emboli - Problem List/Discharge Diagnosis (1) Pulmonary emboli Current Visit: Yes Status: Acute Discharge Diagnosis: Pulmonary embolism type: unspecified Chronicity: acute Acute cor pulmonale presence: without acute cor pulmonale Qualified Code(s): I26.99 - Other pulmonary embolism without acute cor pulmonale Base Code: I26.99 - OTHER PULMONARY EMBOLISM WITHOUT ACUTE COR PULMONALE Comment: 03/22/18: -CTA Chest: scattered bilateral pulmonary embolism -Venous dopplers of the legs: negative for DVT bilaterally -Heparin drip started in ED, transitioned to Eliquis 10mg BID x 7 days, then 5mg BID -Troponin negative -EKG unchanged -security monitor: sinus tach has resolved, NSR at this time -Patient asymptomatic, denies shortness of breath or palpitations at this time -Will follow-up outpatient for ECHO (2) Palpitations Current Visit: Yes Status: Acute Base Code: R00.2 - PALPITATIONS Comment: 03/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 Patient states the symptoms had started earlier in the day. Patient has a history of COPD and was recently admitted 2 weeks ago and treated with steroids and antibiotics. Patient states her symptoms had resolved after that admission and the current shortness of breath was new onset. Patient reported that the current symptoms felt different to her than a COPD exacerbation. Patient denied fever or chest pain. Patient denies any recent travel, but does report significant decrease in normal activity since recent hospitalization, as she has slowly been regaining her strength. ECHO 02/03/18: EF 55-60%, Grade I diastolic dysfunction, normal pulmonary pressures Stress Test 02/03/18: Asymptomatic 5 mets, Poor physical fitness, Holter 01/15/18 One episode of SVT lasting 8 beats otherwise normal Patient's other medical history includes COPD, HTN, and a history of colitis. PCP: Dr. Sen Physical Metallurgist: Dr. Kee ED Course: EKG: NSR rate 95, ST normal, no changes from prior CBC, CMP, Troponin, BNP unremarkable Chest x-ray: bilateral emphysema changes Chest CTA: bilateral scattered pulmonary emboli Heparin drip started 03/21/18: Patient A&O x 4, sitting comfortably on edge of bed. Patient in no respiratory distress, on room air. Discussed case with PCP, Dr. Sen. Will transition patient to oral Eliquis at this time and follow-up outpatient for further ECHO and follow-up. Venous doppler of legs negative for DVT. 03/22/18: Patient A&O x 4, sitting comfortably in chair. Tachycardia has resolved , HR 90's at this time. Patient reports shortness of breath and palpitations have improved since last night. Venous duplex of legs bilaterally negative for DVT. Will continue with Eliquis 10mg BID for a total of 7 days, then transition to 5mg BID. Discussed signs of bleeding to expect with anticoagulant use, as well as concerning symptoms to present to ED. 2 Procedures: Imaging and X-Rays 03/20/18 20:19 CHEST 1 VIEW [RAD] Stat 03/20/18 21:16 CHEST CTA w contrast [CTA] Stat 03/21/18 07:00 VENOUS DOPPLER LOWER EXT AYUSH [US] Stat Cardiology Procedures 03/20/18 20:15 Jewel Grinder NOW EKG NOW 03/20/18 23:45 Jewel Grinder .Continuous Abnormal Labs: Abnormal Lab Results 03/20/18 03/20/18 03/20/18 Range/Units 20:20 20:20 20:20 RDW 14.9 H (11.5-14.5) % Monocytes % (0-9) % PT 9.4 L (9.5-12.1) SECONDS APTT 22.4 L (24.5-39.1) SECONDS Random Glucose 160 H (74-109) mg/dL Calcium 10.4 H (8.8-10.2) mg/dL ALT 47 H (<33) U/L 03/21/18 03/22/18 Range/Units 05:25 06:00 RDW 14.9 H (11.5-14.5) % Monocytes % 9.1 H (0-9) % PT (9.5-12.1) SECONDS APTT 96.8 H (24.5-39.1) SECONDS Random Glucose (74-109) mg/dL Calcium (8.8-10.2) mg/dL ALT (<33) U/L Condition at Discharge: (2) Stable Discharge Medications - Discharge Medications Prescriptions: Apixaban [Eliquis] 10 mg PO BID #22 tablet Home Medications: Ambulatory Orders Albuterol Sulfate [Ventolin Hfa] 1 - 2 puff IH .EVERY 4-6 HOURS PRN #1 inhaler 11/25/15 [Last Taken 03/02/18] Budesonide/Formoterol Fumarate [Symbicort 160-4.5 Mcg Inhaler] 2 puff IH BID #1 hfa.aer.ad 12/19/16 [Last Taken 08/28/17] Atorvastatin Calcium 20 mg PO QHS 08/28/17 [Last Taken 08/27/17] Acetaminophen [Tylenol 325Mg] 650 mg PO Q6H PRN tablet 03/04/18 [Last Taken Unknown] Cartia Xt 180 mg PO DAILY 03/20/18 [Last Taken 03/20/18] Ipratropium/Albuterol [Duoneb] 3 ml IH Q4H PRN 03/21/18 [Last Taken Unknown] Apixaban [Eliquis] 10 mg PO BID #22 tablet 03/22/18 [Last Taken Unknown] Discharge Plan - Discharge Instructions Activity at Discharge: Increase Activity as Tolerated Diet at Discharge: Regular Diet Additional Instructions: -Starting tonight, take 10mg Eliquis (2 tabs) twice a day. -You have an appointment to follow-up with Dr. Sen Mar 24 at 9am. Quality Measures - Quality Measures Quality Measures: Advance Directives, Documentation of Current Medications in Medical Record, Elder Maltreatment Screen and Follow-Up Plan, Screening for High Blood Pressure and F/U Documented - Current Medications Quality Measure: Measure #130: Documentation of Current Medications Documentation of Current Medications: <Current Medications Documented/Reviewed> [[id number]] - Blood Pressure Screening Quality Measure: Screening for High Blood Pressure and Follow-Up Documented Does Patient Have Any of the Following: Active Dx of HTN Blood Pressure Classification: Pre-Hypertensive BP Reading Systolic Measurement: 155 Diastolic Measurement: 87 Screening for High Blood Pressure: Patient Exclusion, Hx of HTN [G9744] - Advance Directives Quality Measure: Measure #47: Care Plan Advance Directives Established: No Advance Directives Information Provided To Patient: Declined Advance Directives on File: No Living Will: No Power of Supervisor Carbon Electrodes: No Advance Care Planning: <Care Plan/Decision Maker Not Decided; Discussed & Documented> [[id number]] - Elder Abuse Suspicion Index Screening: Elder Abuse Suspicion Index Screening Rely on people for bathing, dressing, shopping, banking, etc: No Prevented from getting food, clothes, medication, etc: No Made to feel shamed or threatened by someone: No Forced to sign papers or use money against will: No Feel afraid, touched in ways not wanted or hurt physically: No Poor eye contact, withdrawn, malnourished, cuts or bruises: No Screening Result: Negative result EASI Reference Information: Andrés HELM, Katt C, Yosi D, Sandy Walter.Development and validation of a tool to assist physicians identification of elder abuse: The Elder Abuse Suspicion Index (EASI ). Journal of Elder Abuse and Neglect, 2008; 20 (3): 276-300. - Elder Maltreatment Screen Quality Measures: Elder Maltreatment Screen and Follow-Up Plan Elder Maltreatment Screen: <Negative, No Follow-Up Plan Required> [[id number]]
== END 2018-03-22 11:00 | disposition home or self-care (01) | DRG 176 ==
LOC: ER 20:14 → MEDSURG 23:32
PROVIDERS: ADMIT Internal Medicine; ATTEND Internal Medicine
DX: I26.99 Other pulmonary embolism without acute cor pulmonale (principal); J44.1 Chronic obstructive pulmonary disease with (acute) exacerbation; K57.92 Diverticulitis of intestine, part unspecified, without perforation or abscess without bleeding; R06.00 Dyspnea, unspecified; I10 Essential (primary) hypertension; R00.0 Tachycardia, unspecified; K58.9 Irritable bowel syndrome, unspecified; K52.9 Noninfective gastroenteritis and colitis, unspecified; M19.90 Unspecified osteoarthritis, unspecified site; M81.0 Age-related osteoporosis without current pathological fracture; Z87.891 Personal history of nicotine dependence
CPT/HCPCS: 85025; 85730; 85610; 80053; 84484; 83880; 71045; 71275; 94640; 93005; 93010; Q9967; 93970; 94760; 96365; 96374; 96375; 99223; 99239; 99285; 99291; J2930

== ENCOUNTER 2018-03-23 13:22 | Emergency (ER) | payer MEDICARE, OTHER ==
--- NOTE | 2018-03-23 13:48 | Emergency Department Record ---
History of Present Illness - General Chief Complaint: Dizziness Stated Complaint: LIGHTHEADED Time Seen by Provider: 03/23/18 13:23 Source: Patient Mode of Arrival: Ambulatory Limitations: No limitations - History of Present Illness Initial Comments: The patient is here due to feeling dizzy and lightheaded for a few hours today. She also had some palpitations and mild LISE with the symptoms. The patient was recently here at [facility] and diagnosed with bilateral PE's and was discharged yesterday on full dose Eliquis. She does have a hx of COPD and possibly anxiety. The patient has had no CP with it and presently is feeling back to normal. MD Complaint: Dizziness, Lightheadedness Onset/Timin -: Days(s) Improves With: Nothing Worsens With: Nothing Associated Symptoms: Shortness of breath - [place] Coma Scale Eye Response: (4) Open spontaneously Motor Response: (6) Obeys commands Verbal Response: (5) Oriented Jake Total: 15 - Related Data Previous Rx's Medication Instructions Recorded Albuterol Sulfate [Ventolin Hfa] 1 - 2 puff IH .EVERY 4-6 HOURS PRN 11/25/15 #1 inhaler Budesonide/Formoterol Fumarate 2 puff IH BID #1 hfa.aer.ad 12/19/16 [Symbicort 160-4.5 Mcg Inhaler] Acetaminophen [Tylenol 325Mg] 650 mg PO Q6H PRN tablet 03/04/18 Apixaban [Eliquis] 10 mg PO BID #22 tablet 03/22/18 Allergies Allergy/AdvReac Type Severity Reaction Status Date / Time No Known Drug Allergies Allergy Verified 03/23/18 13:35 Travel Screening - Travel/Exposure Within Last 30 Days Have you traveled within the last 30 days?: No - Travel/Exposure Within Last Year Have you traveled outside the [place] in the last year?: No - Additonal Travel Details Have you been exposed to anyone with a communicable illness?: No - Travel Symptoms Symptom Screening: None Review of Systems Constitutional: Denies: Chills, Fever Eyes: Denies: Eye discharge ENT: Denies: Congestion Respiratory: Reports: Dyspnea. Denies: Cough Cardiovascular: Reports: Arrhythmia. Denies: Chest pain Endocrine: Denies: Fatigue Gastrointestinal: Denies: Nausea Genitourinary: Denies: Dysuria Musculoskeletal: Denies: Arthralgia Skin: Denies: Bruising Past Medical History - SOCIAL HISTORY Smoking Status: Former smoker Alcohol Use: None Drug Use: None - RESPIRATORY Hx Respiratory Disorders: Yes Hx Bronchitis: Yes Hx COPD: Yes - CARDIOVASCULAR Hx Cardio Disorders: Yes Hx Hypertension: Yes Hx Palpitations: Yes (tachycardia r/t hx of anxiety) - NEURO Hx Neuro Disorders: Yes Hx Dizziness: Yes - GI Hx GI Disorders: Yes Hx Abdominal Pain: Yes Hx Diverticulitis: Yes Hx Reflux: Yes Hx Irritable Bowel: Yes Hx Rectal Bleeding: Yes Hx of Polyps: Yes Comment:: colitis - Hx Genitourinary Disorders: Yes Hx Bladder Problem: Yes Hx UTI: Yes - ENDOCRINE Hx Endocrine Disorders: No Hx Diabetes: No Hx Thyroid Disease: No - MUSCULOSKELETAL Hx Musculoskeletal Disorders: Yes Hx Arthritis: Yes Hx Osteoporosis: Yes - PSYCH Hx Psych Problems: Yes Hx Anxiety: Yes - HEMATOLOGY/ONCOLOGY Hx Hematology/Oncology Disorders: No Hx Anemia: No Hx Blood Disorders: No Hx Bruising: No Hx Cancer: No Hx Clotting Problems: No Hx Sickle Cell Disease: No Hx Unexplained Bleeding: No Hx Blood Transfusions: No Hx Blood Transfusion Reaction: No Family Medical History Any Significant Family History?: No Hx Cancer: Father, Mother *Cancer Comment: mother- lung ca, father-colon ca Hx Resp Disorders: Father, Grandparents Physical Exam - General General Appearance: Alert, Oriented x3, Cooperative, No acute distress - Head Head exam: Atraumatic, Normocephalic, Normal inspection - Eye Eye exam: Normal appearance, PERRL, EOMI - ENT Throat exam: Normal inspection. negative: Tonsillar erythema, Tonsillar exudate - Neck Neck exam: Normal inspection, Full ROM. negative: Tenderness - Respiratory Respiratory exam: Normal lung sounds bilaterally. negative: Accessory muscle use, Decreased breath sounds, Rales, Respiratory distress, Rhonchi, Stridor, Wheezes - Cardiovascular Cardiovascular Exam: Regular rate, Normal rhythm, Normal heart sounds - GI/Abdominal GI/Abdominal exam: Soft, Normal bowel sounds. negative: Tenderness - Extremities Extremities exam: Normal inspection, Full ROM, Normal capillary refill. negative: Calf tenderness, Pedal edema, Tenderness - Neurological Neurological exam: Alert, Normal gait. negative: Abnormal gait, Motor sensory deficit Course Vital Signs 03/23/18 13:29 Temperature 97.7 F Pulse Rate 86 Respiratory 24 Rate Blood Pressure 132/84 Pulse Ox 97 - Reevaluation(s) Reevaluation #1: The patient is feeling much better at this time. Her palpitations have resolved and she no longer is having any mild SOB. The Ativan did seem to resolve her symptoms. I did discuss the need to continue her present medicines and she does have an appointment with her PCP tomorrow morning. I did discuss the case with Dr. Sen and he agrees with the plan to discharge. 03/23/18 15:04 Medical Decision Making - Data Complexity MDM Data: Labs Ordered and/or Reviewed, X-Ray Ordered and/or Reviewed, EKG Ordered and/or Reviewed - Lab Data Result diagrams: 03/23/18 13:43 03/23/18 13:43 - EKG Data -: EKG Interpreted by Me EKG: No Acute Changes, Unchanged From Previous - Radiology Data Radiology results: Report reviewed (CXR: Neg for any acute changes.) Disposition Disposition: Discharge Clinical Impression: Palpitations Disposition: Home, Self-Care Condition: (2) Stable Instructions: Heart Palpitations (ED) Additional Instructions: Please continue your regular medicines and please take the Ativan tonight if needed. Please return to the ER for any worsening symptoms. Forms: Patient Portal Access Time of Disposition: 15:07 Quality - Quality Measures Quality Measures: N/A - Blood Pressure Screening View Details: Yes Does Patient Have Any of the Following: No Blood Pressure Classification: Pre-Hypertensive BP Reading Systolic Measurement: 132 Diastolic Measurement: 84 Screening for High Blood Pressure: < Pre-Hypertensive BP, F/U Documented > [ G8950] Pre-Hypertensive Follow-up Interventions: Referral to alternative/primary care provider.
[2018-03-23] MEDS ORDERED: LORAZEPAM 0.5 MG TABLET PO ONE ×2 (13:57→15:02)
[2018-03-23 14:05] LABS: BASO % 0.3 % (0-6); EOS % 1.9 % (0-6); GRAN % 66.7 % (47-80); HEMATOCRIT 45.6 % (35.0-47.0); HEMOGLOBIN 15.1 gm/dl (11.6-16.0); LYMPH % 24.1 % (16-45); MEAN CELL VOLUME 89.9 fl (81-97); MEAN CORPUSCULAR HEMOGLOBIN 29.8 pg (27-33); MEAN CORPUSCULAR HGB CONC 33.1 g/dl (32-36); MEAN PLATELET VOLUME 8.5 fl (7.4-10.4); PLATELET COUNT 220 K/uL (130-400); RED BLOOD COUNT 5.07 M/uL (3.80-5.40); WHITE BLOOD COUNT W/O DIFF 7.3 K/uL (4.2-12.2)
[2018-03-23 14:17] LABS: PARTIAL THROMBOPLASTIN TIME 25.7 SECONDS (24.5-39.1)
[2018-03-23 14:18] LABS: BLOOD UREA NITROGEN 14 mg/dL (8-23); CREATININE 0.8 mg/dL (0.5-0.9); EST GLOMERULAR FILTRATION RATE > 60 mL/min
[2018-03-23 14:19] LABS: TOTAL PROTEIN 6.5 g/dL (6.6-8.7)
[2018-03-23 14:21] LABS: GLUCOSE,RANDOM 127 mg/dL (74-109)
[2018-03-23 14:23] LABS: ALB/GLOB RATIO 1.5 (1.1-1.8); ALBUMIN 3.9 g/dL (4.0-5.0); ALT/SGPT 42 U/L (<33); AST/SGOT 21 U/L (10.0-35.0)
[2018-03-23 14:24] LABS: ALKALINE PHOSPHATASE 68 U/L (45-87); CREATINE PHOSPHOKINASE 47 U/L (26-192)
[2018-03-23 14:26] LABS: CKMB 1.9 ng/mL (<3.77)
--- NOTE | 2018-03-24 13:04 | RADIOLOGY REPORT ---
EXAM: CHEST, TWO VIEWS HISTORY: LIGHTHEADEDNESS AND BLURRED VISION. FAST HEARTBEAT. TECHNIQUE: PA and lateral upright views of the chest were obtained. Comparison: 03/20/18. FINDINGS: The heart, mediastinum, and pulmonary vasculature are normal. The lungs are emphysematous. There are no acute infiltrates or effusions. There is no pneumothorax. The bones appear intact. IMPRESSION: 1. STABLE EMPHYSEMATOUS CHANGES. 2. NO ACUTE CHEST PATHOLOGY. JOB NUMBER: [id number] [facility], [place]
== END 2018-03-23 15:18 | disposition home or self-care (01) ==
LOC: ER 13:22
DX: R00.2 Palpitations (principal); R42 Dizziness and giddiness; R06.02 Shortness of breath; J44.9 Chronic obstructive pulmonary disease, unspecified; Z87.891 Personal history of nicotine dependence; I10 Essential (primary) hypertension; Z79.01 Long term (current) use of anticoagulants
CPT/HCPCS: 71046; 80053; 82550; 82553; 84484; 85025; 85610; 85730; 93005; 93010; 99284

== ENCOUNTER 2019-02-01 15:30 | Emergency (ER) | payer MEDICARE, OTHER ==
[2019-02-01] MEDS ORDERED: IPRATROPIUM/ALBUTEROL (0.5MG/3MG) NEB INH ONE (15:44)
[2019-02-01] MEDS ORDERED: METHYLPREDNISOLONE PF 125MG/VIAL IVP ONE (15:45)
--- NOTE | 2019-02-01 15:50 | Emergency Department Record ---
History of Present Illness - General Chief Complaint: Cough Stated Complaint: LISE/COUGH Time Seen by Provider: 02/01/19 15:44 Source: Patient, Family Mode of Arrival: Ambulatory Limitations: No limitations - History of Present Illness Initial Comments: 68 yo female presents with shortness of breath for about a week. She has an extensive history of COPD. She states she has been short of breath for months but it worsened the last week. She had seen Dr Sen and was started on an antibiotic last month. She denies any productive sputum. No fever. No nausea, vomiting or diarrhea. She is not on any home oxygen. MD Complaint: Cough, Shortness of breath -: Week(s) Radiation: Other Severity: Moderate Quality: Other Improves With: Nothing Worsens With: Coughing Known History Of: COPD Context: Other (Long history of COPD) Associated Symptoms: Cough Treatments Prior to Arrival: Bronchodilator - Related Data Home Oxygen Therapy: No Previous Rx's Medication Instructions Recorded Albuterol Sulfate [Ventolin Hfa] 1 - 2 puff IH .EVERY 4-6 HOURS PRN 11/25/15 #1 inhaler Budesonide/Formoterol Fumarate 2 puff IH BID #1 hfa.aer.ad 12/19/16 [Symbicort 160-4.5 Mcg Inhaler] Acetaminophen [Tylenol 325Mg] 650 mg PO Q6H PRN tablet 03/04/18 Prednisone [Prednisone 20Mg] 20 mg PO BID #10 tab 02/01/19 Allergies Allergy/AdvReac Type Severity Reaction Status Date / Time No Known Drug Allergies Allergy Verified 02/01/19 15:48 Review of Systems Constitutional: Reports: Chills. Denies: Fever, Malaise, Weakness Eyes: Denies: Eye discharge ENT: Reports: Congestion Respiratory: Reports: Cough, Dyspnea, Wheezes Cardiovascular: Reports: Dyspnea on exertion. Denies: Chest pain, Edema, Palpitations, Syncope Endocrine: Denies: Fatigue, Polydipsia, Polyuria Gastrointestinal: Denies: Abdominal pain, Diarrhea, Nausea, Vomiting Genitourinary: Denies: Dysuria, Urgency Musculoskeletal: Denies: Arthralgia, Back pain, Neck pain Skin: Denies: Bruising, Change in color, Rash Neurological: Denies: Headache Psychiatric: Denies: Anxiety Hematological/Lymphatic: Denies: Easy bleeding, Easy bruising Past Medical History - SOCIAL HISTORY Smoking Status: Former smoker Drug Use: None - RESPIRATORY Hx Respiratory Disorders: Yes Hx Bronchitis: Yes Hx COPD: Yes - CARDIOVASCULAR Hx Cardio Disorders: Yes Hx Hypertension: Yes Hx Palpitations: Yes (tachycardia r/t hx of anxiety) - NEURO Hx Neuro Disorders: Yes Hx Dizziness: Yes - GI Hx GI Disorders: Yes Hx Abdominal Pain: Yes Hx Diverticulitis: Yes Hx Reflux: Yes Hx Irritable Bowel: Yes Hx Rectal Bleeding: Yes Hx of Polyps: Yes Comment:: colitis - Hx Genitourinary Disorders: Yes Hx Bladder Problem: Yes Hx UTI: Yes - ENDOCRINE Hx Endocrine Disorders: No Hx Diabetes: No Hx Thyroid Disease: No - MUSCULOSKELETAL Hx Musculoskeletal Disorders: Yes Hx Arthritis: Yes Hx Osteoporosis: Yes - PSYCH Hx Psych Problems: Yes Hx Anxiety: Yes - HEMATOLOGY/ONCOLOGY Hx Hematology/Oncology Disorders: No Hx Anemia: No Hx Blood Disorders: No Hx Bruising: No Hx Cancer: No Hx Clotting Problems: No Hx Sickle Cell Disease: No Hx Unexplained Bleeding: No Hx Blood Transfusions: No Hx Blood Transfusion Reaction: No Family Medical History Hx Cancer: Father, Mother *Cancer Comment: mother- lung ca, father-colon ca Hx Resp Disorders: Father, Grandparents Physical Exam - General General Appearance: Alert, Oriented x3, Cooperative, No acute distress Limitations: No limitations - Head Head exam: Atraumatic, Normal inspection - Eye Eye exam: Normal appearance, PERRL. negative: Conjunctival injection, Scleral icterus - ENT ENT exam: Normal exam, Mucous membranes moist Ear exam: Normal external inspection Nasal Exam: Normal inspection Mouth exam: Normal external inspection - Neck Neck exam: Normal inspection - Respiratory Respiratory exam: Accessory muscle use, Decreased breath sounds, Prolonged expiratory, Wheezes. negative: Normal lung sounds bilaterally, Respiratory distress, Rhonchi - Cardiovascular Cardiovascular Exam: Regular rate, Normal rhythm, Normal heart sounds - GI/Abdominal GI/Abdominal exam: Soft. negative: Tenderness - Rectal Rectal exam: Deferred - exam: Deferred - Extremities Extremities exam: Normal inspection. negative: Calf tenderness, Pedal edema - Back Back exam: Denies: CVA tenderness (R), CVA tenderness (L) - Neurological Neurological exam: Alert, Oriented X3 - Psychiatric Psychiatric exam: Normal affect, Normal mood. negative: Agitated, Anxious - Skin Skin exam: Dry, Intact, Normal color, Warm Course - Reevaluation(s) Reevaluation #1: 02/01/19 16:20 EKG #1: 16:02 Rate: 88 Rhythm: sinus [place]: normal Intervals: normal ST segments: mild artifact, nonspecific changes No changes from the prior EKG 02/01/19 16:22 No acute abnormalities on the labs The patient is doing better after the initial treatment 02/01/19 16:47 The patient continues to do well. 96% on room air I will repeat one more treatment and reassess. 02/01/19 17:12 The patient was rechecked after the second treatment She is doing very well. Her work of breathing is very relaxed. She is not having any sputum so no antibiotics at this time She will be discharged on steroids and follow up with the PCP Medical Decision Making - Lab Data Result diagrams: 02/01/19 15:45 02/01/19 15:45 Disposition Disposition: Discharge Clinical Impression: COPD with acute exacerbation Disposition: Home, Self-Care Condition: (1) Good Instructions: COPD (Chronic Obstructive Pulmonary Disease) (ED) Additional Instructions: Review this ER visit and the tests performed with your family doctor Dr Sen Call your doctor for the next available follow up appointment first of the week Return to the ER for a recheck immediately if worse, any new concerns or questions Take the prescriptions provided as directed Prescriptions: Prednisone [Prednisone 20Mg] 20 mg PO BID #10 tab Forms: Patient Portal Access Time of Disposition: 17:15 Quality - Quality Measures Quality Measures: N/A - Blood Pressure Screening Does Patient Have Any of the Following: No Blood Pressure Classification: Pre-Hypertensive BP Reading Systolic Measurement: 121 Diastolic Measurement: 83 Screening for High Blood Pressure: < Pre-Hypertensive BP, F/U Documented > [G8950] Pre-Hypertensive Follow-up Interventions: Referral to alternative/primary care provider.
[2019-02-01 16:05] LABS: BASO % 0.4 % (0-6); EOS % 4.9 % (0-6); GRAN % 45.9 % (47-80); HEMATOCRIT 44.9 % (35.0-47.0); HEMOGLOBIN 14.7 gm/dl (11.6-16.0); LYMPH % 39.5 % (16-45); MEAN CORPUSCULAR HEMOGLOBIN 28.5 pg (27-33); MEAN CORPUSCULAR HGB CONC 32.7 g/dl (32-36); MEAN PLATELET VOLUME 8.3 fl (7.4-10.4); MONO % 9.3 % (0-9); PLATELET COUNT 286 K/uL (130-400); RED BLOOD COUNT 5.16 M/uL (3.80-5.40); RED CELL DISTRIBUTION WIDTH 14.6 % (11.5-14.5)
[2019-02-01 16:16] LABS: BLOOD UREA NITROGEN 10 mg/dL (8-23); CREATININE 0.7 mg/dL (0.5-0.9); EST GLOMERULAR FILTRATION RATE > 60 mL/min
[2019-02-01 16:19] LABS: GLUCOSE,RANDOM 109 mg/dL (74-109)
[2019-02-01] MEDS ORDERED: ALBUTEROL SULFATE (0.083%) 2.5 MG/3 ML NEB INH ONE (16:47)
== END 2019-02-01 17:36 | disposition home or self-care (01) ==
LOC: ER 15:30
DX: J44.1 Chronic obstructive pulmonary disease with (acute) exacerbation (principal); R06.02 Shortness of breath; Z87.891 Personal history of nicotine dependence; I10 Essential (primary) hypertension
CPT/HCPCS: 80048; 85025; 93005; 93010; 94640; 96374; 99284; J2930; J7613